=== PATIENT | female | born 1945 | race Caucasian/White ===

== ENCOUNTER 2016-07-04 10:46 | Emergency (ER) | payer MEDICARE, BC ==
--- NOTE | 2016-07-04 13:16 | EDDOCDS ---
Nurse's Notes [facility] Name: Riddhi Shabazz Age: 71 yrs Sex: Female : 1945 Arrival Date: 07/04/2016 Time: 10:46 Bed TR7 Private MD: CHRISTIANO BUSH Diagnosis: Vaginitis, vulvitis and vulvovaginitis in diseases classified elsewhere Presentation: 07/04 10:58 Presenting complaint: Patient states: she has vaginal burning after urinating - does kcs not burn when she urinates - no vaginal bleeding - does have some lower abdominal discomfort. Adult Sepsis Screening: The patient does not have new or worsening altered mentation. Patient's respiratory rate is less than 22. Systolic blood pressure is greater than 100. Patient has a qSOFA score of 0- Negative Sepsis Screen. Suicide/Homicide risk assessment- the patient denies having any suicidal and/or homicidal ideations and does not present with any other emotional, behavioral or mental health complaints. Status: Patient is not a resident services supervisor or dependent. Transition of care: patient was not received from another setting of care. 10:58 Acuity: ROBERT Level 4 kcs 10:58 Method Of Arrival: Walkin/Carried/Asstd kcs Triage Assessment: 11:02 General: Appears comfortable, well developed, well nourished, well groomed, Behavior is kcs cooperative, pleasant. Pain: Location: vaginal area Pain currently is 6 out of 10 on a pain scale. Neurological: Level of Consciousness is awake, alert. Respiratory: Airway is patent Respiratory effort is even, unlabored, Respiratory pattern is regular, symmetrical. Derm: Skin is intact, is healthy with good turgor, Skin is dry, Skin is normal. Historical: - Allergies: Codeine Sulfatedizzy, nausea; - Home Meds: 1. estradiolo cream three times a day 2. Xanax 0.25 mg Oral tab 1 tab 3 times per day 3. metoprolol succinate 100 mg Tb24 once daily ER 4. lexipro 5 mg daily - PMHx: Hypertension; Anxiety; - PSHx: Tubal ligation; - Social history: Smoking status: Patient states was never smoker of tobacco. No barriers to communication noted, The patient speaks fluent [place]. - : The pt / caregiver states he / she is not on anticoagulants. Home medication list is obtained from the patient. - Exposure Risk Screening:: None identified. Vital Signs: 10:48 BP 172 / 90; Pulse 80; Resp 16; Temp 98.7(O); Pulse Ox 100% ; Weight 76.2 kg; Height 5 cmb ft. 6 in. (167.64 cm); Pain 8/10; 10:48 Body Mass Index 27.12 (76.20 kg, 167.64 cm) cmb Vitals: 10:48 Log In Time: July 04, 2016 at 10:20. cmb ED Course: 10:47 Patient visited by Eladia Zarate. cmb 10:47 Patient moved to Waiting cmb 10:48 CHRISTIANO CLIFFORD is Private Physician. cmb 10:48 CHRISTIANO BUSH is Private Physician. cmb 10:49 Patient moved to Pre RCE cmb 10:59 Triage Initiated kcs 11:52 Patient moved to Triage 1 rs3 12:08 Patient visited by No Berger RN. mk4 12:08 Urinalysis Sent. jrd 12:08 Urine Culture Sent. jrd 12:13 Monae London PA-C is PHCP. dt4 12:13 Laith Anderson MD is Attending Physician. dt4 12:13 Patient visited by Monae London PA-C. dt4 12:18 Patient moved to PD jrd 12:44 Patient visited by No Berger RN. mk4 13:01 [facility] Payment Agreement was scanned into [employer] and attached to record. jp5 13:16 Patient moved to TR7 jrd Order Results: Lab Order: Urinalysis; SPEC'M 07/04/16 12:04 Test: APPEARANCE, URINE; Value: CLEAR; Range: CLEAR; Status: F Test: COLOR, URINE; Value: YELLOW; Range: YELLOW; Status: F Test: PH,URINE; Value: 7.0; Range: 5.0-9.0; Units: UNITS; Status: F Test: SPECIFIC GRAVITY URINE AUTO; Value: 1.016; Range: 1.002-1.035; Status: F Test: PROTEIN, URINE AUTO; Value: NEGATIVE; Range: NEGATIVE; Units: mg/dL; Status: F Test: GLUCOSE, URINE (UA) AUTO; Value: NEGATIVE; Range: NEGATIVE; Units: mg/dL; Status: F Test: KETONE, URINE AUTO; Value: NEGATIVE; Range: NEGATIVE; Units: mg/dL; Status: F Test: UROBILINOGEN, URINE AUTO; Value: 0.2; Range: 0.0-2.0; Units: mg/dL; Status: F Test: BILIRUBIN, URINE AUTO; Value: NEGATIVE; Range: NEGATIVE; Status: F Test: NITRITE, URINE AUTO; Value: NEGATIVE; Range: NEGATIVE; Status: F Test: LEUKOCYTE ESTERASE, URINE AUTO; Value: NEGATIVE; Range: NEGATIVE; Status: F Test: BLOOD, URINE BLOOD; Value: NEGATIVE; Range: NEGATIVE; Status: F Test: WBC, URINE AUTO; Value: 0; Range: 0-3; Units: /HPF; Status: F Test: RBC, URINE AUTO; Value: 2; Range: 0-3; Units: /HPF; Status: F Test: BACTERIA, URINE AUTO; Value: NEGATIVE; Range: NEGATIVE; Status: F Test: SQUAMOUS EPITHELIAL CELL UR AU; Value: 0; Range: 0-6; Units: /HPF; Status: F Test: MUCUS, URINE; Value: SMALL; Range: NEGATIVE; Status: F Test: HYALINE CAST, URINE AUTO; Value: 0; Range: 0-1; Units: /LPF; Status: F Outcome: 12:53 Discharge ordered by Provider. dt4 13:16 Patient left the ED. mk4 Signatures: Kaila Domínguez, RN RN [facility] Wanda Holley RN RN rs3 Eladia Zarate Margaret, RN RN mk4 Monae London, PA-C PA-C dt4 Eddy Loera PCA ROOF SERVICE TECHNICIAN jrOrin Milligan 5 MTDD
--- NOTE | 2016-07-04 13:16 | EDDOCDS ---
Physician Documentation [facility] Name: Riddhi Shabazz Age: 71 yrs Sex: Female : 1945 Arrival Date: 07/04/2016 Time: 10:46 Bed TR7 Private MD: CHRISTIANO BUSH Disposition: 07/04/16 12:53 Discharged to Home/Self Care. Impression: Vaginitis, vulvitis and vulvovaginitis in diseases classified elsewhere. - Condition is Stable. - Discharge Instructions: Contact Dermatitis, [id number]. - Medication Reconciliation, Local Pharmacy Hours form. - Follow up: Emergency Department; When: As needed; Reason: Worsening of conditions. Follow up: Private Physician; When: 2 - 3 days; Reason: Wound/Symptom Recheck, Recheck today's complaints, Continuance of care. - Problem is new. - Symptoms are unchanged. - Notes: YOUR URINE TODAY DID NOT SHOW ANY SIGNS OF INFECTION. YOU MAY HAVE A MILD IRRITATION/REACTION TO THE CHANGE IN WIPES. CALL YOUR PRIMARY CARE OR OB-SOIL TECHNOLOGIST PROVIDER TO SCHEDULE A FOLLOW UP APPOINTMENT. Historical: - Allergies: Codeine Sulfatedizzy, nausea; - Home Meds: 1. estradiolo cream three times a day 2. Xanax 0.25 mg Oral tab 1 tab 3 times per day 3. metoprolol succinate 100 mg Tb24 once daily ER 4. lexipro 5 mg daily - PMHx: Hypertension; Anxiety; - PSHx: Tubal ligation; - Social history: Smoking status: Patient states was never smoker of tobacco. No barriers to communication noted, The patient speaks fluent Moroccan. - : The pt / caregiver states he / she is not on anticoagulants. Home medication list is obtained from the patient. - Exposure Risk Screening:: None identified. Vital Signs: 07/04 10:48 BP 172 / 90; Pulse 80; Resp 16; Temp 98.7(O); Pulse Ox 100% ; Weight 76.2 kg / 167.99 cmb lbs; Height 5 ft. 6 in. (167.64 cm); Pain 8/10; 10:48 Body Mass Index 27.12 (76.20 kg, 167.64 cm) cmb MDM: 11:05 Urinalysis Ordered. EDMS 11:05 Urine Culture Ordered. EDMS 12:13 Undress patient appropriately for examination ordered. dt4 12:27 ED course: PT STATES RECENTLY CHANGED WIPES (FROM COTTONELLE TO EQUATE BRAND) WITHIN dt4 THE LAST WEEK AND NOTED SOME DISCOMFORT AFTER URINATING. STATES NO URINARY FREQUENCY, ABDOMINAL PAIN, BACK PAIN, FEVER, NAUSEA OR VOMITING. . 13:01 [facility] Payment Agreement was scanned into [employer] and attached to record. jp5 13:01 Financial registration complete. jp5 Signatures: Dispatcher [employer] EDKaila Walton RN RN [facility] No Berger RN RN mk4 Monae London, PAAnabelC PA-Jarad dt4 Orin Raya jp5 The chart was reviewed and I authenticate all verbal orders and agree with the evaluation and treatment provided.Attachments: 13:01 [facility] Payment Agreement jp5 MTDD
--- NOTE | 2016-07-06 14:17 | EDDOCDS ---
Physician Documentation [facility] Name: Riddhi Shabazz Age: 71 yrs Sex: Female : 1945 Arrival Date: 07/04/2016 Time: 10:46 Bed TR7 Private MD: CHRISTIANO BUSH Disposition: 07/04/16 12:53 Discharged to Home/Self Care. Impression: Vaginitis, vulvitis and vulvovaginitis in diseases classified elsewhere. - Condition is Stable. - Discharge Instructions: Contact Dermatitis, [id number]. - Medication Reconciliation, Local Pharmacy Hours form. - Follow up: Emergency Department; When: As needed; Reason: Worsening of conditions. Follow up: Private Physician; When: 2 - 3 days; Reason: Wound/Symptom Recheck, Recheck today's complaints, Continuance of care. - Problem is new. - Symptoms are unchanged. - Notes: YOUR URINE TODAY DID NOT SHOW ANY SIGNS OF INFECTION. YOU MAY HAVE A MILD IRRITATION/REACTION TO THE CHANGE IN WIPES. CALL YOUR PRIMARY CARE OR OB-LASTEX OPERATOR PROVIDER TO SCHEDULE A FOLLOW UP APPOINTMENT. Historical: - Allergies: Codeine Sulfatedizzy, nausea; - Home Meds: 1. estradiolo cream three times a day 2. Xanax 0.25 mg Oral tab 1 tab 3 times per day 3. metoprolol succinate 100 mg Tb24 once daily ER 4. lexipro 5 mg daily - PMHx: Hypertension; Anxiety; - PSHx: Tubal ligation; - Social history: Smoking status: Patient states was never smoker of tobacco. No barriers to communication noted, The patient speaks fluent Nauruan. - : The pt / caregiver states he / she is not on anticoagulants. Home medication list is obtained from the patient. - Exposure Risk Screening:: None identified. Vital Signs: 07/04 10:48 BP 172 / 90; Pulse 80; Resp 16; Temp 98.7(O); Pulse Ox 100% ; Weight 76.2 kg / 167.99 cmb lbs; Height 5 ft. 6 in. (167.64 cm); Pain 8/10; 10:48 Body Mass Index 27.12 (76.20 kg, 167.64 cm) cmb MDM: 11:05 Urinalysis Ordered. EDMS 11:05 Urine Culture Ordered. EDMS 12:13 Undress patient appropriately for examination ordered. dt4 12:27 ED course: PT STATES RECENTLY CHANGED WIPES (FROM COTTONELLE TO EQUATE BRAND) WITHIN dt4 THE LAST WEEK AND NOTED SOME DISCOMFORT AFTER URINATING. STATES NO URINARY FREQUENCY, ABDOMINAL PAIN, BACK PAIN, FEVER, NAUSEA OR VOMITING. . 13:01 [facility] Payment Agreement was scanned into [employer] and attached to record. jp5 13: Financial registration complete. jp5 07/05 12:42 T-Sheet-- Draft Copy was scanned into [employer] and attached to record. gb Signatures: Dispatcher [employer] EDMS Kaila Domínguez, RN RN kcs Beverly Gilliland, Reg Reg gb No Berger RN RN mk4 Monae London PA-C PAClay dt4 Orin Raya jp5 The chart was reviewed and I authenticate all verbal orders and agree with the evaluation and treatment provided.Attachments: 07/04 13:01 [facility] Payment Agreement jp5 07/05 12:42 T-Sheet-- Draft Copy gb Chart Complete MTDD
--- NOTE | 2016-07-06 14:17 | EDDOCDS ---
Nurse's Notes [facility] Name: Riddhi Shabazz Age: 71 yrs Sex: Female : 1945 Arrival Date: 07/04/2016 Time: 10:46 Bed TR7 Private MD: CHRISTIANO BUSH Diagnosis: Vaginitis, vulvitis and vulvovaginitis in diseases classified elsewhere Presentation: 07/04 10:58 Presenting complaint: Patient states: she has vaginal burning after urinating - does kcs not burn when she urinates - no vaginal bleeding - does have some lower abdominal discomfort. Adult Sepsis Screening: The patient does not have new or worsening altered mentation. Patient's respiratory rate is less than 22. Systolic blood pressure is greater than 100. Patient has a qSOFA score of 0- Negative Sepsis Screen. Suicide/Homicide risk assessment- the patient denies having any suicidal and/or homicidal ideations and does not present with any other emotional, behavioral or mental health complaints. Status: Patient is not a services executive or dependent. Transition of care: patient was not received from another setting of care. 10:58 Acuity: ROBERT Level 4 kcs 10:58 Method Of Arrival: Walkin/Carried/Asstd kcs Triage Assessment: 11:02 General: Appears comfortable, well developed, well nourished, well groomed, Behavior is kcs cooperative, pleasant. Pain: Location: vaginal area Pain currently is 6 out of 10 on a pain scale. Neurological: Level of Consciousness is awake, alert. Respiratory: Airway is patent Respiratory effort is even, unlabored, Respiratory pattern is regular, symmetrical. Derm: Skin is intact, is healthy with good turgor, Skin is dry, Skin is normal. Historical: - Allergies: Codeine Sulfatedizzy, nausea; - Home Meds: 1. estradiolo cream three times a day 2. Xanax 0.25 mg Oral tab 1 tab 3 times per day 3. metoprolol succinate 100 mg Tb24 once daily ER 4. lexipro 5 mg daily - PMHx: Hypertension; Anxiety; - PSHx: Tubal ligation; - Social history: Smoking status: Patient states was never smoker of tobacco. No barriers to communication noted, The patient speaks fluent Fijian. - : The pt / caregiver states he / she is not on anticoagulants. Home medication list is obtained from the patient. - Exposure Risk Screening:: None identified. Vital Signs: 10:48 BP 172 / 90; Pulse 80; Resp 16; Temp 98.7(O); Pulse Ox 100% ; Weight 76.2 kg; Height 5 cmb ft. 6 in. (167.64 cm); Pain 8/10; 10:48 Body Mass Index 27.12 (76.20 kg, 167.64 cm) cmb Vitals: 10:48 Log In Time: July 04, 2016 at 10:20. cmb ED Course: 10:47 Patient visited by Eladia Zarate. cmb 10:47 Patient moved to Waiting cmb 10:48 CHRISTIANO CLIFFORD is Private Physician. cmb 10:48 CHRISTIANO BUSH is Private Physician. cmb 10:49 Patient moved to Pre RCE cmb 10:59 Triage Initiated kcs 11:52 Patient moved to Triage 1 rs3 12:08 Patient visited by No Berger RN. mk4 12:08 Urinalysis Sent. jrd 12:08 Urine Culture Sent. jrd 12:13 Monae London PA-C is PHCP. dt4 12:13 Laith Anderson MD is Attending Physician. dt4 12:13 Patient visited by Monae London PA-C. dt4 12:18 Patient moved to PD jrd 12:44 Patient visited by No Berger RN. mk4 13:01 [facility] Payment Agreement was scanned into [employer] and attached to record. jp5 13:16 Patient moved to TR7 jrd 13:47 Patient name changed from Riddhi\S\\S\Walty\S\ to Riddhi\S\ \S\Walty. EDMS 07/05 12:42 T-Sheet-- Draft Copy was scanned into [employer] and attached to record. gb Order Results: Lab Order: Urinalysis; SPEC'M 07/04/16 12:04 Test: APPEARANCE, URINE; Value: CLEAR; Range: CLEAR; Status: F Test: COLOR, URINE; Value: YELLOW; Range: YELLOW; Status: F Test: PH,URINE; Value: 7.0; Range: 5.0-9.0; Units: UNITS; Status: F Test: SPECIFIC GRAVITY URINE AUTO; Value: 1.016; Range: 1.002-1.035; Status: F Test: PROTEIN, URINE AUTO; Value: NEGATIVE; Range: NEGATIVE; Units: mg/dL; Status: F Test: GLUCOSE, URINE (UA) AUTO; Value: NEGATIVE; Range: NEGATIVE; Units: mg/dL; Status: F Test: KETONE, URINE AUTO; Value: NEGATIVE; Range: NEGATIVE; Units: mg/dL; Status: F Test: UROBILINOGEN, URINE AUTO; Value: 0.2; Range: 0.0-2.0; Units: mg/dL; Status: F Test: BILIRUBIN, URINE AUTO; Value: NEGATIVE; Range: NEGATIVE; Status: F Test: NITRITE, URINE AUTO; Value: NEGATIVE; Range: NEGATIVE; Status: F Test: LEUKOCYTE ESTERASE, URINE AUTO; Value: NEGATIVE; Range: NEGATIVE; Status: F Test: BLOOD, URINE BLOOD; Value: NEGATIVE; Range: NEGATIVE; Status: F Test: WBC, URINE AUTO; Value: 0; Range: 0-3; Units: /HPF; Status: F Test: RBC, URINE AUTO; Value: 2; Range: 0-3; Units: /HPF; Status: F Test: BACTERIA, URINE AUTO; Value: NEGATIVE; Range: NEGATIVE; Status: F Test: SQUAMOUS EPITHELIAL CELL UR AU; Value: 0; Range: 0-6; Units: /HPF; Status: F Test: MUCUS, URINE; Value: SMALL; Range: NEGATIVE; Status: F Test: HYALINE CAST, URINE AUTO; Value: 0; Range: 0-1; Units: /LPF; Status: F Lab Order: Urine Culture; SPEC'M 07/04/16 12:04 Test: URINE CULTURE; Value: URINE CULTURE RESULT NO GROWTH; Status: F Outcome: 07/04 12:53 Discharge ordered by Provider. dt4 13:16 Patient left the ED. mk4 Signatures: Dispatcher [employer] EDMS Kaila Domínguez RN RN Beverly Oneill, Wanda Angel RN RN rs3 Eladia Zarate Margaret, RN RN mk4 Monae London, PA-C PA-C dt4 Eddy Loera PCA ELECTRIC ACCOUNTING MACHINE OPERATOR Orin Carrasco jp5 Chart Complete MTDD
--- NOTE | 2016-07-06 14:17 | EDDOCDS ---
Physician Documentation [facility] Name: Riddhi Shabazz Age: 71 yrs Sex: Female : 1945 Arrival Date: 07/04/2016 Time: 10:46 Bed TR7 Private MD: CHRISTIANO BUSH Disposition: 07/04/16 12:53 Discharged to Home/Self Care. Impression: Vaginitis, vulvitis and vulvovaginitis in diseases classified elsewhere. - Condition is Stable. - Discharge Instructions: Contact Dermatitis, [id number]. - Medication Reconciliation, Local Pharmacy Hours form. - Follow up: Emergency Department; When: As needed; Reason: Worsening of conditions. Follow up: Private Physician; When: 2 - 3 days; Reason: Wound/Symptom Recheck, Recheck today's complaints, Continuance of care. - Problem is new. - Symptoms are unchanged. - Notes: YOUR URINE TODAY DID NOT SHOW ANY SIGNS OF INFECTION. YOU MAY HAVE A MILD IRRITATION/REACTION TO THE CHANGE IN WIPES. CALL YOUR PRIMARY CARE OR OB-CARPENTER BRIDGE PROVIDER TO SCHEDULE A FOLLOW UP APPOINTMENT. Historical: - Allergies: Codeine Sulfatedizzy, nausea; - Home Meds: 1. estradiolo cream three times a day 2. Xanax 0.25 mg Oral tab 1 tab 3 times per day 3. metoprolol succinate 100 mg Tb24 once daily ER 4. lexipro 5 mg daily - PMHx: Hypertension; Anxiety; - PSHx: Tubal ligation; - Social history: Smoking status: Patient states was never smoker of tobacco. No barriers to communication noted, The patient speaks fluent Togolese. - : The pt / caregiver states he / she is not on anticoagulants. Home medication list is obtained from the patient. - Exposure Risk Screening:: None identified. Vital Signs: 07/04 10:48 BP 172 / 90; Pulse 80; Resp 16; Temp 98.7(O); Pulse Ox 100% ; Weight 76.2 kg / 167.99 cmb lbs; Height 5 ft. 6 in. (167.64 cm); Pain 8/10; 10:48 Body Mass Index 27.12 (76.20 kg, 167.64 cm) cmb MDM: 11:05 Urinalysis Ordered. EDMS 11:05 Urine Culture Ordered. EDMS 12:13 Undress patient appropriately for examination ordered. dt4 12:27 ED course: PT STATES RECENTLY CHANGED WIPES (FROM COTTONELLE TO EQUATE BRAND) WITHIN dt4 THE LAST WEEK AND NOTED SOME DISCOMFORT AFTER URINATING. STATES NO URINARY FREQUENCY, ABDOMINAL PAIN, BACK PAIN, FEVER, NAUSEA OR VOMITING. . 13:01 [facility] Payment Agreement was scanned into [employer] and attached to record. jp5 13: Financial registration complete. jp5 07/05 12:42 T-Sheet-- Draft Copy was scanned into [employer] and attached to record. gb Signatures: Dispatcher [employer] EDMS Kaila Domínguez, RN RN kcs Beverly Gilliland, Reg Reg gb No Berger RN RN mk4 Monae London PA-C PAClay dt4 Orin Raya jp5 The chart was reviewed and I authenticate all verbal orders and agree with the evaluation and treatment provided.Attachments: 07/04 13:01 [facility] Payment Agreement jp5 07/05 12:42 T-Sheet-- Draft Copy gb Chart Complete MTDD
== END 2016-07-04 13:16 | disposition home or self-care (01) ==
LOC: M ED 10:46
DX: N76.2 Acute vulvitis (principal); R30.0 Dysuria; I10 Essential (primary) hypertension; F41.9 Anxiety disorder, unspecified; Z88.5 Allergy status to narcotic agent; Z88.2 Allergy status to sulfonamides; Z79.899 Other long term (current) drug therapy

== ENCOUNTER → 2019-10-07 | Outpatient (REF) | payer MEDICARE, BC ==
[2019-10-07 18:32] LABS: AMORPHOUS SEDIMENT SMALL (NEGATIVE); APPEARANCE, URINE CLOUDY (CLEAR); BACTERIA, URINE AUTO 1+ (NEGATIVE); BILIRUBIN, URINE AUTO NEGATIVE (NEGATIVE); BLOOD, URINE BLOOD 3+ (NEGATIVE); COLOR, URINE YELLOW (YELLOW); GLUCOSE, URINE (UA) AUTO NEGATIVE (NEGATIVE); KETONE, URINE AUTO TRACE mg/dL (NEGATIVE); LEUKOCYTE ESTERASE, URINE AUTO 2+ (NEGATIVE); NITRITE, URINE AUTO NEGATIVE (NEGATIVE); PROTEIN, URINE AUTO 1+ mg/dL (NEGATIVE); RBC, URINE AUTO TNTC /HPF (0-3); SPECIFIC GRAVITY URINE AUTO 1.023 (1.002-1.035); SQUAMOUS EPITHELIAL CELL UR AU 0 /HPF (0-6); UROBILINOGEN, URINE AUTO 0.2 mg/dL (0.0-2.0); WBC, URINE AUTO 103 /HPF (0-3)
== END ==
LOC: M LAB REF 18:07
PROVIDERS: ATTEND Physician Assistant
DX: N39.0 Urinary tract infection, site not specified (principal); R31.9 Hematuria, unspecified

== ENCOUNTER → 2019-10-30 | Outpatient (REF) | payer MEDICARE, BC | LOC: M LAB REF 19:51 | PROVIDERS: ATTEND Physician Assistant | DX: R30.0 Dysuria (principal) ==

== ENCOUNTER → 2020-11-15 | Outpatient (REF) | payer MEDICARE, BC | LOC: M SFHCWAGY 12:35 | PROVIDERS: ATTEND Specialist | DX: Z01.419 Encounter for gynecological examination (general) (routine) without abnormal findings (principal); N95.8 Other specified menopausal and perimenopausal disorders | CPT/HCPCS: 87624; G0101; G0123 ==

== ENCOUNTER → 2020-12-08 | Outpatient (CLI) | payer MEDICARE, BC ==
--- NOTE | 2020-12-08 13:15 | REP ---
INDICATION: N83.202 LT OVARIAN CYST. COMPARISON: 07/03/2018. 08/13/2016. TECHNIQUE: Transabdominal and transvaginal scanning performed. FINDINGS: Uterine dimensions are 6.1 x 3.3 x 3.9 cm. Endometrial echo is 3 mm in AP dimension. Echogenic mass in the body of the uterus measures approximately 2.6 x 2.1 x 1.9 cm appearing unchanged compared to prior studies and most likely representing a fibroid. The bladder measures 5.8 x 4.7 x 7.4cm. The right ovary has dimensions of 4.2 x 3.8 x 4.0 cm. It's Doppler flow is normal with a resistive index of 0.67. The left ovary dimensions are 2.1 x 1.9 x 2.1 cm. It's Doppler flow was normal with resistive index of 0.64. Both ovaries are replaced by multiple small cystic structures. The appearance is essentially unchanged compared to the prior exam of 07/03/2018. The right ovary has increased since 08/13/2016. No free fluid is seen in the cul-de-sac. IMPRESSION: Stable echogenic mass in the body of the uterus most likely represents a fibroid. Multiple small cystic structures throughout both ovaries as discussed above, the appearance is unchanged since 07/03/2018. <Electronically signed by Stanislav Wisdom > 12/08/20 [id number]
== END ==
LOC: M WHC 09:46
PROVIDERS: ATTEND Specialist
DX: N83.202 Unspecified ovarian cyst, left side (principal); N85.8 Other specified noninflammatory disorders of uterus

== ENCOUNTER → 2020-12-18 | Outpatient (REF) | payer MEDICARE, BC ==
[2020-12-18 14:03] LABS: ALBUMIN 3.8 GM/DL (3.2-5.2); BLOOD UREA NITROGEN 18 MG/DL (7-18); CARBON DIOXIDE LEVEL 29 MEQ/L (21-32); CHLORIDE LEVEL 106 MEQ/L (98-107); CREATININE FOR GFR 0.81 MG/DL (0.55-1.30); GLOMERULAR FILTRATION RATE > 60.0 (>39); GLUCOSE, FASTING 92 MG/DL (70-100); NT-PRO BNP 403 PG/ML (<125); PHOSPHORUS LEVEL 3.3 MG/DL (2.5-4.9); POTASSIUM SERUM 4.7 MEQ/L (3.5-5.1); SODIUM LEVEL 139 MEQ/L (136-145)
== END ==
LOC: M LABDRWAD 12:31
PROVIDERS: ATTEND Internal Medicine Cardiovascular Disease
DX: I11.9 Hypertensive heart disease without heart failure (principal); R53.83 Other fatigue; I27.20 Pulmonary hypertension, unspecified

== ENCOUNTER → 2021-01-02 | Outpatient (CLI) | payer MEDICARE, BC ==
--- NOTE | 2021-01-04 15:09 | SLEEPHOME ---
DATE: 01/02/2021 ORDERED BY: Dr. Barnes Diagnostic home sleep testing was performed due to concern for the obstructive sleep apnea syndrome in this patient with a history of pulmonary hypertension. For testing, a nocturnal T3 respiratory monitoring device was used. Continuous record was made of pulse, oxygen saturation, air flow, chest and abdominal strain, and body position. There was 7 hours and 59 minutes of data reviewed. There was 7 hours and 26 minutes marked as time in bed. During the interval marked time in bed, there were 262 respiratory events identified of 10 seconds in duration or greater for a respiratory event index of 33.7. The events were primarily obstructive; however, 82 central apneas were scored. Patient's baseline pulse rate was 56 beats per minute. Pulse rate ranged 49-84. Baseline saturation was 92%. Saturations fell to 82%, and testing was performed in both the supine and nonsupine positions. IMPRESSION: Abnormal home sleep testing with repetitive respiratory events and oxygen desaturations to 82% with a respiratory event index of 33.7 is consistent with the obstructive sleep apnea syndrome. RECOMMENDATION: The patient should be encouraged to undergo formal sleep evaluation.
== END ==
LOC: M SLEEP HO 09:58
PROVIDERS: ATTEND Internal Medicine Cardiovascular Disease
DX: I27.20 Pulmonary hypertension, unspecified (principal)

== ENCOUNTER → 2021-03-02 | Outpatient (CLI) | payer MEDICARE, BC ==
--- NOTE | 2021-03-02 14:33 | REPMRS ---
Patient History The patient states she has not had a clinical breast exam in over a year. Family history of breast cancer at age 55 in sister. Patient states no breast complaints today. Patient has signed MRS History Sheet. Digital Woman Screen Mammo: March 02, 2021 - Exam #: [id number] Bilateral CC and MLO view(s) were taken. Technologist: Kelle Kaplan, Technologist Prior study comparison: April 16, 2016, digital woman screen mammo performed at [facility]. April 03, 2015, digital woman screen mammo performed at [facility]. FINDINGS: There are scattered fibroglandular densities. Screening. Digital screening (2D) mammography was performed bilaterally in the CC and MLO projections. Additionally, breast tomosynthesis (3D mammography) was performed bilaterally in the CC and MLO projections. Todays exam was compared to the prior exam/exams.There are no prior DBT images for comparison. By history, the patient has no complaints of a palpable breast abnormality or other significant breast complaints. The breasts are unchanged in size and shape. There are no yoan-soft tissue densities or spiculated masses. There is no internal architectural distortion. There are no suspicious yoan-calcific clusters. Skin thickening or nipple retraction is not present. IMPRESSION: BI-RADS Category 2- Benign Findings. There is no evidence of malignant alteration of the breasts. Followup examination recommended in one year. The Volpara volumetric breast density category is B, there are scattered areas of fibroglandular densities. This mammogram was read with the assistance of [facility],an FDA approved computer aided detection system for mammography. The lifetime Tyrer-Cuzick score is 9.8 % Negative x-ray reports should not delay surgical consultation if a dominant or clinically suspicious mass is present. Not all breast cancers can be identified by mammography. Therefore, we recommend that you continue to perform regular breast self-examination and physical examination and then promptly contact your physician of any concerns or changes. Adenosis and dense breasts may obscure an underlying neoplasm. Assessment: BI-RADS/ACR category 2 mammogram. Benign Findings. Recommendation Routine screening mammogram of both breasts in 1 year. Electronically Signed By: Jett Ding DO 03/02/21 1215
--- NOTE | 2021-03-02 15:48 | DEXAMM ---
INDICATION: MENOPAUSAL PROBLEM. COMPARISON: Comparison study April 23, 2018. TECHNIQUE: Bone density was measured using dual-energy x-ray absorptionmetry (DEXA). FINDINGS: AP SPINE L1-L4 BMD 1.281 g/cm2 Young Adult T-Score 0.7 Age Matched Z-Score 2.4. LT FEMUR, TOTAL BMD 0.887 g/cm2 Young Adult T-Score -1.0 Age Matched Z-Score 0.8. LT NECK BMD 0.700 g/cm2 Young Adult T-Score -2.4 Age Matched Z-Score -0.5. RT FEMUR, TOTAL BMD 0.900 g/cm2 Young Adult T-Score -0.9 Age Matched Z-Score 0.9. RT NECK BMD 0.788 g/cm2 Young Adult T-Score -1.8 Age Matched Z-Score 0.1. IMPRESSION: There is normal bone density of the spine. There is low bone density of the left hip. There is low bone density of the right hip. The density of the spine has decreased 1.7% since the initial exam on December 13, 2010. The density of the spine increased 3.5% since most recent exam on April 23, 2018. The density of the left hip has decreased 4.7% since initial exam on December 13, 2010. The density of the left hip has decreased 2.6% since most recent exam on April 16, 2016. The density of the right hip has decreased 1.6% since the initial exam on December 13, 2010. The density of the right hip has decreased 3.2% since the most recent exam on April 16, 2016. FOLLOW-UP: Recommendation for the next bone density exam: 2 years. <Electronically signed by Kyrie Elizabeth > 03/02/21 [id number]
== END ==
LOC: M WHC 13:25
PROVIDERS: ATTEND Specialist
DX: Z12.31 Encounter for screening mammogram for malignant neoplasm of breast (principal); N95.9 Unspecified menopausal and perimenopausal disorder

== ENCOUNTER → 2021-03-19 | Outpatient (REF) | payer MEDICARE, BC ==
[~2021-03-19] MED LIST: CEPH500C; NITR100C2
[2021-03-19 13:41] LABS: APPEARANCE, URINE CLOUDY (CLEAR); BACTERIA, URINE AUTO NEGATIVE (NEGATIVE); BILIRUBIN, URINE AUTO NEGATIVE (NEGATIVE); BLOOD, URINE BLOOD 3+ (NEGATIVE); COLOR, URINE YELLOW (YELLOW); GLUCOSE, URINE (UA) AUTO 1+ mg/dL (NEGATIVE); KETONE, URINE AUTO TRACE mg/dL (NEGATIVE); LEUKOCYTE ESTERASE, URINE AUTO 1+ (NEGATIVE); NITRITE, URINE AUTO NEGATIVE (NEGATIVE); PROTEIN, URINE AUTO 3+ mg/dL (NEGATIVE); RBC, URINE AUTO TNTC /HPF (0-3); SPECIFIC GRAVITY URINE AUTO 1.015 (1.002-1.035); SQUAMOUS EPITHELIAL CELL UR AU 0 /HPF (0-6); UROBILINOGEN, URINE AUTO 0.2 mg/dL (0.0-2.0); WBC, URINE AUTO 102 /HPF (0-3)
== END ==
LOC: M SFHCWAGY 13:11
PROVIDERS: ATTEND Advanced Practice Midwife
DX: R30.0 Dysuria (principal)

== ENCOUNTER 2021-04-09 13:30 | Emergency (ER) | payer MEDICARE, BC ==
[~2021-04-09] VITALS: Ht 167.6 cm; Wt 75.6 kg
--- OUTSIDE RECORDS SUMMARY | 2021-04-09 13:39 | CCD ---
Author Author [facility] Organization [facility] Address Unknown Phone Unavailable Care Team Providers Care Legal Coordinator Name Role Phone Aleyda Arteaga Unavailable PROBLEMS Type Condition ICD9-CM Code [id number] Code Onset Dates Condition S tatus W/U Status Risk SNOMED Code Notes Problem Female dyspareunia N94.10 Active confirmed 8 8724465 Problem Menopausal and postmenopausal disorder N95.9 A ctive confirmed 141927170 Problem Menopausal problem N95.9 Active confirmed 6 0343387 Problem Symptomatic menopausal or female climacteric states N95.1 Active confirmed 97509505 Problem Postmenopausal atrophic vaginitis N95.2 Active con firmed [id number] ALLERGIES Allergen (clinical drug ingredient) Drug/Non Drug Allergy do cumented on EMR Reaction Allergy Type Onset Date Status codeine Codeine Sulfate([facility] Code:[address]-13) dizzines s, upset stomach Drug Allergy Active ENCOUNTERS from 1945 to 2021-03-21 Encounter Location Date Provider Diagnosis [facility] [address] [place] [address] [place] [address] Feb, Aleyda Arteaga Urinary tract infect ion, site not specified N39.0 and Bacterial infection, unspecified A49.9 IMMUNIZATIONS No Information SOCIAL HISTORY Tobacco Use: Social History Observation Description Date Details (start date - stop date) Never Smoker Sex Assigned At : Social History Observation Description Sex Assigned At Unknown Alcohol Screening: Question Answer Notes Did you have a drink containing alcohol in the past year? Ye s Points 4 Interpretation Positive How often did you have six or more drinks on one occas ion in the past year? Never (0 points) How many drinks did you have on a typica l day when you were drinking in the past year? 1 or 2 (0 points) How often did you have a drink containing alcohol in t he past year? Four or more times a week (4 points) BMI Care Goal Follow-Up Question Answer Notes Above Normal BMI Follow-Up Giving encouragement to exercise Tobacco Use: Question Answer Notes Are you a: never smoker never smoker REASON FOR REFERRAL No Information VITAL SIGNS No information MEDICATIONS Medication SIG (Take, Route, Frequency, Duration) Notes Start Da te End Date Status Diflucan 150 MG 1 tablet Orally one time Feb, Active Macrobid 100 MG 1 capsule Orally twice per day for 5 days Feb, Active Macrobid 100 MG 1 capsule Orally twice per day for 5 days Feb, Active PROCEDURES No Information RESULTS No Results REASON FOR VISIT Re:RE:UTI MEDICAL (GENERAL) HISTORY Type Description Date Medical History depression Medical History anxiety Medical History high blood pressure Medical History postmenopause Surgical History tubal ligation Surgical History D&C Surgical History 2001 Surgical History colonoscopy Hospitalization History none Goals Section No Information Health Concerns No Information MEDICAL EQUIPMENT No Information MENTAL STATUS No Information FUNCTIONAL STATUS No Information ASSESSMENTS Encounter Date Diagnosis Assessment Notes Treatment Notes Treatm ent Clinical Notes Feb, Urinary tract infection, site not specified (ICD -10 - N39.0) Feb, Bacterial infection, unspecified (ICD-10 - A49.9 ) PLAN OF TREATMENT Medication Medication Name Sig Start Date Stop Date Diflucan 150 MG 1 tablet Orally one time Feb, Macrobid 100 MG 1 capsule Orally twice per day for 5 days Feb Macrobid 100 MG 1 capsule Orally twice per day for 5 days Feb Insurance Providers Payer Name Payer Address Payer Phone Insured Name Patient Relati onship to Insured Coverage Start Date Coverage End Date BS [place] [employer] [address] [facility] [address] Hipolito Hernandez MEDICARE Part A and B [address] [facility] [address] ZOLTAN HERNANDEZ self
--- OUTSIDE RECORDS SUMMARY | 2021-04-09 13:39 | CCD ---
Author Author [facility] Organization [facility] Address Unknown Phone Unavailable Care Team Providers Care Ethylbenzene Converter Operator Name Role Phone Yasmani Elvin Unavailable PROBLEMS Type Condition ICD9-CM Code YVX45-CW Code Onset Dates Condition S tatus W/U Status Risk SNOMED Code Notes Problem Female dyspareunia N94.10 Active confirmed 8 0772397 Problem Menopausal and postmenopausal disorder N95.9 A ctive confirmed 207394704 Problem Menopausal problem N95.9 Active confirmed 6 2044447 Problem Symptomatic menopausal or female climacteric states N95.1 Active confirmed 31547392 Problem Postmenopausal atrophic vaginitis N95.2 Active con firmed 99925570 ALLERGIES Allergen (clinical drug ingredient) Drug/Non Drug Allergy do cumented on EMR Reaction Allergy Type Onset Date Status codeine Codeine Sulfate([facility] Code:[address]-76) dizzines s, upset stomach Drug Allergy Active ENCOUNTERS from 1945 to 2021-03-26 Encounter Location Date Provider Diagnosis [facility] [address] [place] [address] [place] [address] Mar, Elvin Gruber IMMUNIZATIONS No Information SOCIAL HISTORY Tobacco Use: [...] Notes Start Da te End Date Status Cephalexin 500 MG 1 capsule Orally Four times a day for 5 day(s) Mar, Active Diflucan 150 MG 1 tablet Orally one time Feb, Active Macrobid 100 MG 1 capsule Orally twice per day for 5 days Feb, Active Macrobid 100 MG 1 capsule Orally twice per day for 5 days Feb, Active PROCEDURES No Information RESULTS No Results REASON FOR VISIT Bone Density results MEDICAL (GENERAL) HISTORY Type Description Date Medical History depression Medical History anxiety Medical History high blood pressure Medical History postmenopause Surgical History tubal ligation Surgical History D&C Surgical History EMB 2001 Surgical History colonoscopy Hospitalization History none Goals Section No Information Health Concerns No Information MEDICAL EQUIPMENT No Information MENTAL STATUS No Information FUNCTIONAL STATUS No Information ASSESSMENTS No Information PLAN OF TREATMENT Medication Medication Name Sig Start Date Stop Date Cephalexin 500 MG 1 capsule Orally Four times a day for 5 day(s) Mar, Macrobid 100 MG 1 capsule Orally twice per day for 5 days Feb Macrobid 100 MG 1 capsule Orally twice per day for 5 days Feb Diflucan 150 MG 1 tablet Orally one time Feb, Insurance Providers Payer Name Payer Address Payer Phone Insured Name Patient Relati onship to Insured Coverage Start Date Coverage End Date MEDICARE Part A and B [address] [facility] [address] ZOLTAN SHABAZZ [place] [address] [address] [place] [address] [phone] Yasir Shabazz
--- OUTSIDE RECORDS SUMMARY | 2021-04-09 13:39 | CCD ---
Author Author [facility] Organization [facility] Address Unknown Phone Unavailable Care Team Providers Care Scrap Sorter Name Role Phone Yasmani Elvin Unavailable PROBLEMS Type Condition ICD9-CM Code BRO65-VC Code Onset Dates Condition S tatus W/U Status Risk SNOMED Code Notes Problem Female dyspareunia N94.10 Active confirmed 8 9219553 Problem Menopausal and postmenopausal disorder N95.9 A ctive confirmed 289500257 Problem Menopausal problem N95.9 Active confirmed 6 5320878 Problem Symptomatic menopausal or female climacteric states N95.1 Active confirmed 04230466 Problem Postmenopausal atrophic vaginitis N95.2 Active con firmed 57661299 ALLERGIES Allergen (clinical drug ingredient) Drug/Non Drug Allergy do cumented on EMR Reaction Allergy Type Onset Date Status codeine Codeine Sulfate([facility] Code:[address]-08) dizzines s, upset stomach Drug Allergy Active ENCOUNTERS from 1945 to 2021-03-29 Encounter Location Date Provider Diagnosis [facility] [address] [place] [address] [place] [address] Mar, Elvin Gruber IMMUNIZATIONS No Information SOCIAL [...] a day for 5 day(s) Mar, Active Macrobid 100 MG 1 capsule Orally twice per day for 5 days Feb, Active Macrobid 100 MG 1 capsule Orally twice a day for 7 day(s) Mar, Active Diflucan 100 MG 1 tablet Orally once for 1 day(s) Mar, Active Macrobid 100 MG 1 capsule Orally twice per day for 5 days Feb, Active Diflucan 150 MG 1 tablet Orally one time Feb, Active PROCEDURES No Information RESULTS No Results REASON FOR VISIT New Refill Request MEDICAL (GENERAL) HISTORY Type Description Date Medical [...] MG 1 tablet Orally one time Feb, Diflucan 100 MG 1 tablet Orally once for 1 day(s) Mar, Macrobid 100 MG 1 capsule Orally twice per day for 5 days Feb Macrobid 100 MG 1 capsule Orally twice a day for 7 day(s) Mar Next Appt Details Provider Name:Laura Rangel, 2021-04-1 0 09:00:00 AM, [address], , [place], [address], Insurance Providers Payer Name Payer Address Payer Phone Insured Name Patient Relati onship to Insured Coverage Start Date Coverage End Date MEDICARE Part A and B [address] [facility] [address] [phone] [facility] [place] [address] [address] [place] [address] Yasir Shabazz
--- OUTSIDE RECORDS SUMMARY | 2021-04-09 13:39 | CCD ---
Author Author [facility] Organization [facility] Address Unknown Phone Unavailable Care Team Providers Care Supervisor [place] Name Role Phone Aleyda Arteaga Unavailable PROBLEMS Type Condition ICD9-CM Code UYC61-HE Code Onset Dates Condition S tatus W/U Status Risk SNOMED Code Notes Problem Female dyspareunia N94.10 Active confirmed 8 2601777 Problem Menopausal and postmenopausal disorder N95.9 A ctive confirmed 587830156 Problem Menopausal problem N95.9 Active confirmed 6 3590970 Problem Symptomatic menopausal or female climacteric states N95.1 Active confirmed 67038725 Problem Postmenopausal atrophic vaginitis N95.2 Active con firmed 97662913 ALLERGIES Allergen (clinical drug ingredient) Drug/Non Drug Allergy do cumented on EMR Reaction Allergy Type Onset Date Status codeine Codeine Sulfate([facility] Code:[address]-93) dizzines s, upset stomach Drug Allergy Active ENCOUNTERS from 1945 to 2021-03-20 Encounter Location Date Provider Diagnosis [facility] [address] [place] [address] [place] [address] Feb, Aleyda Chandler IMMUNIZATIONS No Information SOCIAL HISTORY Tobacco Use: [...] Notes Start Da te End Date Status Macrobid 100 MG 1 capsule Orally twice per day for 5 days Feb, Active Diflucan 150 MG 1 tablet Orally one time Feb, Active PROCEDURES No Information RESULTS No Results REASON FOR VISIT Urine analysis to Primary doctor MEDICAL (GENERAL) HISTORY Type Description Date Medical [...] Medication Name Sig Start Date Stop Date Macrobid 100 MG 1 capsule Orally twice per day for 5 days Feb Diflucan 150 MG 1 tablet Orally one time Feb, Insurance Providers Payer Name Payer Address Payer Phone Insured Name Patient Relati onship to Insured Coverage Start Date Coverage End Date MEDICARE Part A and B [address] [facility] [address] ZOLTAN HERNANDEZ BS [place] [facility] [address] [place] [address] [phone] Yasir Hernandze
--- OUTSIDE RECORDS SUMMARY | 2021-04-09 13:39 | CCD ---
Author Author [facility] Organization [facility] Address Unknown Phone Unavailable Care Team Providers Care Donations Attendant Name Role Phone Yasmani Elvin Unavailable PROBLEMS Type Condition ICD9-CM Code KEP04-UB Code Onset Dates Condition S tatus W/U Status Risk SNOMED Code Notes Problem Female dyspareunia N94.10 Active confirmed 8 9729690 Problem Menopausal and postmenopausal disorder N95.9 A ctive confirmed 141046156 Problem Menopausal problem N95.9 Active confirmed 6 0872884 Problem Symptomatic menopausal or female climacteric states N95.1 Active confirmed 43342720 Problem Postmenopausal atrophic vaginitis N95.2 Active con firmed 47541108 ALLERGIES Allergen (clinical drug ingredient) Drug/Non Drug Allergy do cumented on EMR Reaction Allergy Type Onset Date Status codeine Codeine Sulfate([facility] Code:[address]-96) dizzines s, upset stomach Drug Allergy Active ENCOUNTERS from 1945 to 2021-03-27 Encounter Location Date Provider Diagnosis [facility] [address] [place] [address] [place] [address] Mar, Elvin Gruber IMMUNIZATIONS No Information SOCIAL [...] a day for 7 day(s) Mar, Active PROCEDURES No Information RESULTS No Results REASON FOR VISIT UTI MEDICAL (GENERAL) HISTORY Type Description Date Medical [...] twice a day for 7 day(s) Mar Diflucan 150 MG 1 tablet Orally one time Feb, Macrobid 100 MG 1 capsule Orally twice per day for 5 days Feb Insurance Providers Payer Name Payer Address Payer Phone Insured Name Patient Relati onship to Insured Coverage Start Date Coverage End Date BS [place] [facility] [address] [facility] [place] [address] Yasir Shabazz MEDICARE Part A and B [address] [facility] [address] [phone] ZOLTAN SHABAZZ self
--- OUTSIDE RECORDS SUMMARY | 2021-04-09 13:39 | CCD ---
Author Author [facility] Organization [facility] Address Unknown Phone Unavailable Care Team Providers Care Fuel Assembler Name Role Phone Chandler Aleyda Unavailable PROBLEMS Type Condition ICD9-CM Code ILH17-EM Code Onset Dates Condition S tatus W/U Status Risk SNOMED Code Notes Problem Female dyspareunia N94.10 Active confirmed 8 2753394 Problem Menopausal and postmenopausal disorder N95.9 A ctive confirmed 650668392 Problem Menopausal problem N95.9 Active confirmed 6 6314878 Problem Symptomatic menopausal or female climacteric states N95.1 Active confirmed 23248273 Problem Postmenopausal atrophic vaginitis N95.2 Active con firmed 89515361 ALLERGIES Allergen (clinical drug ingredient) Drug/Non Drug Allergy do cumented on EMR Reaction Allergy Type Onset Date Status codeine Codeine Sulfate([facility] Code:[address]-52) dizzines s, upset stomach Drug Allergy Active ENCOUNTERS from 1945 to 2021-03-28 Encounter Location Date Provider Diagnosis [facility] [address] [place] [address] [place] [address] Mar, Aleyda Arteaga IMMUNIZATIONS No Information SOCIAL HISTORY Tobacco Use: [...] Information RESULTS No Results REASON FOR VISIT Referral for Urologist MEDICAL (GENERAL) HISTORY Type Description Date Medical [...] Part A and B [address] [facility] [address] [phone] ZOLTAN HERNANDEZ [place] [address] [address] [facility] [address] Yasir Hernandez
--- OUTSIDE RECORDS SUMMARY | 2021-04-09 13:39 | CCD | Continuity of Care Document ---
Author Author [facility] Organization Unknown Address [address] [place] [address] [place] [address] Phone [phone] Care Team Providers Care Gluing Machine Operator Automatic Name Role Phone Lukasz Ayers MD AUTM [phone] [facility] [phone] Elvin Gruber MD AUTM [phone] Problems Description No Information Available Social History Type Date Description Comments Sex Unknown ETOH Use Occasionally consumes alcohol Tobacco Use Start: Unknown Patient has never smoked Tobacco Use Start: Unknown The Patient Has Never Vaped Smoking Status Reviewed: 03/01/21 The Patient Has Never Vaped Allergies, Adverse Reactions, Alerts Active Allergies Criticality Reaction | Severity Comments Date Aisha Unable to assess criticality Nausea 10/07/2019 Medications Active Medications SIG Qnty Indications Ordering Provide r Date Irbesartan 150mg Tablets Once a day Unknown Metoprolol Succinate ER 100mg Tablets ER 24HR 1 by mouth every day Unknown 000 Xanax 0.25mg Tablets tid Unknown Escitalopram Oxalate 10mg Unknown Spironolactone 12.5mg Unknown Chlorthalidone 12.5mg (M,W,F) Unknown Ernesto Advanced Aspirin Extra Strength Unknown Coricidin D Cold/Flu/Sinus last dose 9pm last night Unknown Immunizations Description No Information Available Vital Signs Date Vital Result Comment 03/01/2021 4:04pm BP Systolic 160 mmHg BP Diastolic 84 mmHg Heart Rate 71 /min Respiratory Rate 18 /min O2 % BldC Oximetry 98 % Body Temperature 97.1 F Weight 162.00 lb Height 66 inches 5'6" BMI (Body Mass Index) 26.1 kg/m2 Pain Level 5 10/30/2019 10:31am BP Systolic 130 mmHg BP Diastolic 77 mmHg Heart Rate 66 /min Respiratory Rate 67 /min O2 % BldC Oximetry 96 % Body Temperature 97.8 F Weight 159.00 lb Height 66 inches 5'6" BMI (Body Mass Index) 25.7 kg/m2 Pain Level 5 Results Description No Information Available Procedures Date Code Description Status 03/01/2021 47201 Office/Outpatient Established Mo d MDM 30-39 Min Completed Medical Devices Description No Information Available Encounters Type Date Location Provider Dx Diagnosis Office Visit 03/01/2021 1:30p Main Office Jason Wright J0 1.90 Acute sinusitis, unspecified J06.9 Acute upper respiratory infe ction, unspecified Z20.828 Contact w and exposure to ot h viral communicable diseases Assessments Date Code Description Provider 03/01/2021 J01.90 Acute sinusitis, unspecified Jason Colbert 03/01/2021 J06.9 Acute upper respiratory infectio n, unspecified Raysa Wright.A. 03/01/2021 Z20.828 Contact with and (singh spected) exposure to other viral communicable diseases Jason Wright Plan of Treatment No Information Available Functional Status Description No Information Available Mental Status Description No Information Available Referrals Description No Information Available
--- OUTSIDE RECORDS SUMMARY | 2021-04-09 13:39 | CCD ---
Author Author [facility] Organization [facility] Address Unknown Phone Unavailable Care Team Providers Care Cosmetics Presser Name Role Phone Yasmani Elvin Unavailable PROBLEMS Type Condition ICD9-CM Code VUY74-KJ Code Onset Dates Condition S tatus W/U Status Risk SNOMED Code Notes Problem Female dyspareunia N94.10 Active confirmed 8 7585606 Problem Menopausal and postmenopausal disorder N95.9 A ctive confirmed 232570583 Problem Menopausal problem N95.9 Active confirmed 6 2452411 Problem Symptomatic menopausal or female climacteric states N95.1 Active confirmed 08308669 Problem Postmenopausal atrophic vaginitis N95.2 Active con firmed 27310622 ALLERGIES Allergen (clinical drug ingredient) Drug/Non Drug Allergy do cumented on EMR Reaction Allergy Type Onset Date Status codeine Codeine Sulfate([facility] Code:[address]-92) dizzines s, upset stomach Drug Allergy Active ENCOUNTERS from 1945 to 2021-04-01 Encounter Location Date Provider Diagnosis [facility] [address] [place] [address] [place] [address] Mar, Elvin Gruber IMMUNIZATIONS No Information SOCIAL [...] RESULTS No Results REASON FOR VISIT UTI Symptoms MEDICAL (GENERAL) HISTORY Type Description Date Medical [...] Mar Next Appt Details Provider Name:Laura Rangel, 2021-04- 0 09:00:00 AM, [address], , [place], [address], Insurance Providers Payer Name Payer Address Payer Phone Insured Name Patient Relati onship to Insured Coverage Start Date Coverage End Date BC BS [place] [facility] [address] [place] [address] Yasir Shabazz MEDICARE Part A and B [address] [facility] [address] [phone] ZOLTAN SHABAZZ self
--- OUTSIDE RECORDS SUMMARY | 2021-04-09 13:39 | CCD ---
Author Author [facility] Organization [facility] Address Unknown Phone Unavailable Care Team Providers Care Hub Inventory Specialist Name Role Phone Aleyda Arteaga Unavailable PROBLEMS Type Condition ICD9-CM Code JOO88-WE Code Onset Dates Condition S tatus W/U Status Risk SNOMED Code Notes Problem Female dyspareunia N94.10 Active confirmed 8 4830441 Problem Menopausal and postmenopausal disorder N95.9 A ctive confirmed 676667235 Problem Menopausal problem N95.9 Active confirmed 6 6742787 Problem Symptomatic menopausal or female climacteric states N95.1 Active confirmed 60258006 Problem Postmenopausal atrophic vaginitis N95.2 Active con firmed 39839602 ALLERGIES Allergen (clinical drug ingredient) Drug/Non Drug Allergy do cumented on EMR Reaction Allergy Type Onset Date Status codeine Codeine Sulfate([facility] Code:[address]-91) dizzines s, upset stomach Drug Allergy Active ENCOUNTERS from 1945 to 2021-03-22 Encounter Location Date Provider Diagnosis [facility] [address] [place] [address] [place] [address] Feb, Aleyda Rick IMMUNIZATIONS No Information SOCIAL HISTORY Tobacco Use: [...] Information RESULTS No Results REASON FOR VISIT RE:Re:RE:UTI MEDICAL (GENERAL) HISTORY Type Description Date Medical [...] Part A and B [address] [facility] [address] [phone] ZOLTAN HERNANDEZ BS [place] [address] [address] [place] [address] [phone] Yasir Hernandez
--- OUTSIDE RECORDS SUMMARY | 2021-04-09 13:39 | CCD ---
Author Author [facility] Organization [facility] Address Unknown Phone Unavailable Care Team Providers Care Spring Repairer Helper Hand Name Role Phone Aleyda Arteaga Unavailable PROBLEMS Type Condition ICD9-CM Code [id number] Code Onset Dates Condition S tatus W/U Status Risk SNOMED Code Notes Problem Female dyspareunia N94.10 Active confirmed 8 8243716 Problem Menopausal and postmenopausal disorder N95.9 A ctive confirmed 857752847 Problem Menopausal problem N95.9 Active confirmed 6 3690882 Problem Symptomatic menopausal or female climacteric states N95.1 Active confirmed 10342993 Problem Postmenopausal atrophic vaginitis N95.2 Active con firmed [id number] ALLERGIES Allergen (clinical drug ingredient) Drug/Non Drug Allergy do cumented on EMR Reaction Allergy Type Onset Date Status codeine Codeine Sulfate([facility] Code:[address]-23) dizzines s, upset stomach Drug Allergy Active ENCOUNTERS from 1945 to 2021-03-21 Encounter Location Date Provider Diagnosis [facility] [address] [place] [address] [place] [address] Feb, Aleyda Arteaga IMMUNIZATIONS No Information SOCIAL HISTORY [...] Part A and B [address] [facility] [address] [phone] ZOLTAN HERNANDEZ [facility] [place] [facility] [address] [place] [address] Yasir Hernandez
--- OUTSIDE RECORDS SUMMARY | 2021-04-09 13:39 | CCD | Continuity of Care Document ---
Author Author Riddhi URIAS Organization Unknown Address [address] [place] [address] [place] [address] Phone [phone] Care Team Providers Care Paralegal Name Role Phone Lukasz Ayers MD AUT[facility] [phone] [facility] Elvin Gruber MD [facility] [phone] Problems Description No Information Available Social History Type Date Description Comments Sex Unknown ETOH Use Occasionally consumes alcohol Tobacco Use Start: Unknown Patient has never smoked Tobacco Use Start: Unknown The Patient Has Never Vaped Smoking Status Reviewed: 03/01/21 The Patient Has Never Vaped Allergies, Adverse Reactions, Alerts Active Allergies Criticality Reaction | Severity Comments Date Codeine Unable to assess criticality Nausea 10/07/2019 Medications Active Medications SIG Qnty Indications Ordering Provide r Date Amoxicillin/Clavulanate Potassium 875-125mg Tablets 1 tab by mouth twice a day for 7 days 14tabs J01.90 Neftaly Valenzuela JR., M.D. 03/01/2021 Diflucan 150mg Tablets 1 tab by mouth, may repeat in 3-5 days if needed 2tabs J01.90 Neftaly Valenzuela JR., M.D. 03/01/2021 Benzonatate 100mg Capsules 1 capsule by mouth three times daily as needed for dry cough 20caps J06.9 Neftaly Valenzuela JR., M.D. 03/01/2021 Irbesartan 150mg Tablets Once a day Unknown Metoprolol Succinate ER 100mg Tablets ER 24HR 1 by mouth every day Unknown 0 000 Xanax 0.25mg Tablets tid Unknown Escitalopram [...] Available Procedures Date Code Description Status 03/01/2021 05044 Office/Outpatient Established Mo d MDM 30-39 Min Completed Medical Devices Description No Information Available Encounters Type Date Location Provider Dx Diagnosis Office Visit 03/01/2021 1:30p Main Office Asim Urias, Jason J0 1.90 Acute sinusitis, unspecified J06.9 Acute upper respiratory infe ction, unspecified Z20.828 Contact w and exposure to ot h viral communicable diseases Assessments Date Code Description Provider 03/01/2021 J01.90 Acute sinusitis, unspecified Jason Colbert 03/01/2021 J06.9 Acute upper respiratory infectio n, unspecified Willam Wright. 03/01/2021 Z20.828 Contact with and (singh spected) exposure to other viral communicable diseases Jason Wright Plan of Treatment No Information Available Functional Status Description No Information Available Mental Status Description No Information Available Referrals Description No Information Available
--- OUTSIDE RECORDS SUMMARY | 2021-04-09 13:39 | CCD ---
Author Author [facility] Organization [facility] Address Unknown Phone Unavailable Care Team Providers Care Aviation Boatswain'S Mate Name Role Phone Aleyda Arteaga Unavailable PROBLEMS Type Condition ICD9-CM Code [id number] Code Onset Dates Condition S tatus W/U Status Risk SNOMED Code Notes Problem Female dyspareunia N94.10 Active confirmed 8 9588477 Problem Menopausal and postmenopausal disorder N95.9 A ctive confirmed 107229658 Problem Menopausal problem N95.9 Active confirmed 6 7863781 Problem Symptomatic menopausal or female climacteric states N95.1 Active confirmed 61525921 Problem Postmenopausal atrophic vaginitis N95.2 Active con firmed [id number] ALLERGIES Allergen (clinical drug ingredient) Drug/Non Drug Allergy do cumented on EMR Reaction Allergy Type Onset Date Status codeine Codeine Sulfate([facility] Code:[address]-47) dizzines s, upset stomach Drug Allergy Active ENCOUNTERS from 1945 to 2021-03-21 Encounter Location Date Provider Diagnosis [facility] [address] [place] [address] [place] [address] Feb, Aleyda Chandler IMMUNIZATIONS No Information SOCIAL [...] Information RESULTS No Results REASON FOR VISIT Uti MEDICAL (GENERAL) HISTORY Type Description Date Medical [...] Part A and B [address] [facility] [address] [phone] ZOLTAN HERNANDEZ [facility] [place] [facility] [address] [place] [address] Yasir Hernandez
--- OUTSIDE RECORDS SUMMARY | 2021-04-09 13:39 | CCD ---
Author Author [facility] Organization [facility] Address Unknown Phone Unavailable Care Team Providers Care Stem Teacher Name Role Phone Aleyda Arteaga Unavailable PROBLEMS Type Condition ICD9-CM Code [id number] Code Onset Dates Condition S tatus W/U Status Risk SNOMED Code Notes Problem Female dyspareunia N94.10 Active confirmed 8 7574541 Problem Menopausal and postmenopausal disorder N95.9 A ctive confirmed 008670754 Problem Menopausal problem N95.9 Active confirmed 6 2761643 Problem Symptomatic menopausal or female climacteric states N95.1 Active confirmed 68967624 Problem Postmenopausal atrophic vaginitis N95.2 Active con firmed [id number] ALLERGIES Allergen (clinical drug ingredient) Drug/Non Drug Allergy do cumented on EMR Reaction Allergy Type Onset Date Status codeine Codeine Sulfate([facility] Code:[address]-88) dizzines s, upset stomach Drug Allergy Active ENCOUNTERS from 1945 to 2021-03-21 Encounter Location Date Provider Diagnosis [facility] [address] [place] [address] [place] [address] Feb, Aleyda Chandler IMMUNIZATIONS No Information SOCIAL [...] Part A and B [address] [facility] [address] [phone] ZOLTAN HERNANDEZ [place] [address] [address] [place] [address] Yasir Hernandez
--- OUTSIDE RECORDS SUMMARY | 2021-04-09 13:39 | CCD ---
Author Author [facility] Organization [facility] Address Unknown Phone Unavailable Care Team Providers Care Home Care Provider Name Role Phone Chandler Aleyda Unavailable PROBLEMS Type Condition ICD9-CM Code [id number] Code Onset Dates Condition S tatus W/U Status Risk SNOMED Code Notes Problem Female dyspareunia N94.10 Active confirmed 8 0005005 Problem Menopausal and postmenopausal disorder N95.9 A ctive confirmed 071264822 Problem Menopausal problem N95.9 Active confirmed 6 1692909 Problem Symptomatic menopausal or female climacteric states N95.1 Active confirmed 30439694 Problem Postmenopausal atrophic vaginitis N95.2 Active con firmed [id number] ALLERGIES Allergen (clinical drug ingredient) Drug/Non Drug Allergy do cumented on EMR Reaction Allergy Type Onset Date Status codeine Codeine Sulfate([facility] Code:[address]-13) dizzines s, upset stomach Drug Allergy Active ENCOUNTERS from 1945 to 2021-03-26 Encounter Location Date Provider Diagnosis [facility] [address] [place] [address] [place] [address] Mar, Aleyda Arteaga IMMUNIZATIONS No Information SOCIAL [...] Information RESULTS No Results REASON FOR VISIT urinating and pelvic pain MEDICAL (GENERAL) HISTORY Type Description Date Medical [...] Part A and B [address] [facility] [address] ZOLTAN HERNANDEZ [place] [address] [address] [place] [address] Yasir Hernandez
--- OUTSIDE RECORDS SUMMARY | 2021-04-09 13:39 | CCD ---
Author Author [facility] Organization [facility] Address Unknown Phone Unavailable Care Team Providers Care Wind Turbine Performance Engineer Name Role Phone Aleyda Arteaga Unavailable PROBLEMS Type Condition ICD9-CM Code KKD28-UW Code Onset Dates Condition S tatus W/U Status Risk SNOMED Code Notes Problem Female dyspareunia N94.10 Active confirmed 8 3601552 Problem Menopausal and postmenopausal disorder N95.9 A ctive confirmed 420445385 Problem Menopausal problem N95.9 Active confirmed 6 9123914 Problem Symptomatic menopausal or female climacteric states N95.1 Active confirmed 97476739 Problem Postmenopausal atrophic vaginitis N95.2 Active con firmed 85055514 ALLERGIES Allergen (clinical drug ingredient) Drug/Non Drug Allergy do cumented on EMR Reaction Allergy Type Onset Date Status codeine Codeine Sulfate([facility] Code:[address]-11) dizzines s, upset stomach Drug Allergy Active ENCOUNTERS from 1945 to 2021-03-21 Encounter Location Date Provider Diagnosis [facility] [address] [place] [address] [place] [address] Feb, Aleyda Arteaga Dysuria R30.0 IMMUNIZATIONS No Information SOCIAL HISTORY Tobacco Use: [...] days Feb, Active PROCEDURES No Information RESULTS Component Value Reference Range Urinalysis, Complete with Micro Reviewed date:03/19/2021 11:35:45 Interpretation: Performing Lab:[facility], ,[place] [address] Microscopic Examination Urine-Color red Appearance clear with clot Specific [place] 1.010 pH 7 Glucose negative Protein 2+ Occult Blood 3+ Bilirubin 2+ Urobilinogen,Semi-Qn 1+ Nitrite, Urine positive Ketones small WBC Esterase 2+ Urinalysis Gross Exam Microscopic Examination UA URINALYSIS Reviewed date:03/19/2021 16:11:23 Interpretation: Performing Lab:[facility] [address] [address] , ,[place] [address] URINE CULTURE Reviewed date:03/21/2021 13:10:06 Interpretation: Performing Lab:[facility] [address] [address] , ,[facility] REASON FOR VISIT urine test MEDICAL (GENERAL) HISTORY Type Description Date Medical [...] Treatment Notes Treatm ent Clinical Notes Feb, Dysuria (ICD-10 - R30.0) PLAN OF TREATMENT Medication Medication Name Sig [...] Date Coverage End Date BS [place] [facility] [place] [address] [place] [address] Hipolito Hernandez MEDICARE Part A and B [address] [facility] [phone] ZOLTAN HERNANDEZ self
--- OUTSIDE RECORDS SUMMARY | 2021-04-09 13:39 | CCD | Continuity of Care Document ---
Author Author Riddhi AYERS MD Organization Unknown Address [address] [facility] [address] [place] [address] Phone [phone] Care Team Providers Care Heading Matcher And Assembler Name Role Phone Lukasz Ayers M.D. 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 Onset: 11/06/2018 Electrocardiogram abnormal Onset: 2018 Mitral valve disorder Onset: 11/06/2018 Palpitations Onset: 11/06/2018 Social History Type Date Description Comments Sex Unknown ETOH Use Occasionally consumes alcohol Tobacco Use Reviewed: 01/30/21 Patient has never smoked Smoking Status Reviewed: 02/01/21 Patient has never smoked Exercise Type/Frequency Exercises regularly Allergies, Adverse Reactions, Alerts Active Allergies Criticality Reaction | Severity Comments Date Codeine Unable to assess criticality 11/27/2018 Codeine Sulfate Unable to assess criticality 11/13/2015 Medications Active Medications SIG Qnty Indications Ordering Provide r Date Hyoscyamine Sulfate SL 0.125mg Tablets Sub 1 four times a day needed 50tabs R10.84 Lukasz ruth MD 03/28/2020 Diflucan 150mg Tablets take 1 tab by mouth x 1 day 1tabs Lukasz Ayers MD 11/23/2019 Vitamin K2 100mcg Capsules 1 capsule PO daily Unknown 12/31/2018 Vitamin K2 40mcg Tablets 2 capsules PO daily Unknown 12/31/2018 Contour Blood Glucose Test Strips Strips use to test blood sugar twice a day directed 300Strip Lukasz Ayers MD 12/17/2018 Metoprolol Succinate ER 100mg Tablets ER 24HR 1 by mouth every day 90tabs Lukasz Ayers MD 0 12/07/[address] 1 by mouth every day Unknown 11/05/2018 Vitamin D3 Ultra Strength 5000Unit Capsules 1 by mouth every day Unknown 019 Coenzyme Q10 200mg Capsules 1 by mouth every day Unknown 11/05/2018 Shingrix 50mcg/0.5ML Suspension Re c 0.5 milliliters intramuscular AT month 0, repeat in 2-6 months 1units Lukasz Ayers MD 09/23/2018 [place] 3 1000mg Capsules 4800 every day 30caps Lukasz Ayers MD 05/09/2017 Co Q-10 200mg Capsules 1 ever y day Lukasz Ayers MD 05/09/2017 Irbesartan 150mg Tablets take 1 tablet by mouth once daily 90tabs I10 Lukasz Ayers MD 04/25/2017 Escitalopram Oxalate 10mg Tablets take one tablet by mouth once daily 90tabs Lukasz Ayers MD Vitamin D3 5000Unit Tablets Dispense 90 Take 1 tablet orally every day Refills: 3 Unkno wn 10/10/2010 Alprazolam 0.25mg Tablets take 1 tablet by mouth 4 times daily needed . do not exceed 4 per 24 hours 120tabs Lukasz Ayers MD 02/28/2009 Vitamin K2 180 mcg once a day Unknown Magnesium 120 MG twice a day Unknown 0 000 Spironolactone 25mg Tablets 1/2 by mouth every day Unknown Chlorthalidone 25mg Tablets 1/2 by mouth every Fri Unknown Medications Administered in Office Medication SIG Qnty Indications Ordering Provider Date Administer Influenza Virus Vaccine Injection Lukasz Ayers MD 0 Administer Influenza Virus Vaccine Injection Lukasz Ayers MD 9 Administer Influenza Virus Vaccine Injection Lukasz Ayers MD 8 Administer Influenza Virus Vaccine Injection Lukasz Ayers MD 7 Administer Pneumococcal Vaccine No Physi lisbeth Fee Sched Same Day Injection Lukasz grajeda MD 04/25/2016 Administer Influenza Virus Vaccine Injection Lukasz Ayers MD 6 Immunizations CPT Code Status Date Vaccine Lot # [id number] Given 10/04/2020 Covid-19 vaccine, 30mcg/0.3m L 95636 Given 09/03/2020 Covid-19 vaccine, 30mcg/0.3m L 74819 Given 03/28/2020 Influenza, Flucelvax single dose (preservative free) [id number] 32870 Given 03/25/2019 Influenza, Flucelvax multi d ose [id number] 68059 Given 04/13/2018 Influenza Vaccin e, Quadrivalent, Split Virus, Im Use (Multi-Dose) [id number] 10367 Given 04/25/2017 Influenza Vaccin e, Quadrivalent, Split Virus, Im Use (Multi-Dose) [id number] 23461 Given 04/25/2016 Prevnar 13 69357 Given 04/25/2016 Influenza Virus Vaccine, Spl [place] 3 [place] [address] Given 04/05/2015 Influenza Virus Vaccine, Spl [place] 3 [place] [address] Given 04/12/2014 Influenza Virus Vaccine, Spl it 3 [place] [address] Given 03/29/2013 Influenza Virus Vaccine, Spl [place] [address] Given 03/26/2012 Influenza Virus Vaccine, Spl it 3 [place] [address] Given 04/11/2011 Influenza Virus Vaccine, Spl [place] 3 [place] [address] Given 03/05/2010 Influenza Virus Vaccine, Spl it 3 [place] [address] Given 03/05/2010 Influenza Virus Vaccine, Spl it 3 Yrs AB Vital Signs Date Vital Result Comment 02/01/2021 1:27pm Height 66.00 inches 5'6" Weight 165.00 lb BMI (Body Mass Index) 26.6 kg/m2 BP Systolic 116 mmHg BP Diastolic 72 mmHg Heart Rate 60 /min Body Temperature 96.9 F Body Temperature 36.1 C Respiratory Rate 16 /min 11/14/2020 11:29am Height 66.00 inches 5'6" Weight 164.00 lb BMI (Body Mass Index) 26.5 kg/m2 BP Systolic 140 mmHg BP Diastolic 72 mmHg Heart Rate 58 /min Body Temperature 97.3 F Body Temperature 36.3 C O2 % BldC Oximetry 95 % Results Test Acquired Date Facility Test Result H/L Range Note CMP-Female 02/01/2021 [facility] [address] [place] [address] [phone] Glucose 89 mg/dL 74-106 1 BUN 23 mg/dL High 6-20 Creatinine 0.9 mg/dL 0.5-1.3 Sodium 139 mmol/L 136-145 Potassium 4.5 mmol/L 3.5-5.3 Chloride 102 mmol/L 98-107 Co2 27 mEq/L 20-31 Anion Gap 10 mmol/L 7-16 eGFR-female 61 mL/m/1.73m - eGFR-Aa female 74 mL/m/1.73m - 2 Alk. Phos. 53 U/L 46-116 Alt 24 U/L 4-36 3 Ast 29 U/L 8-33 Total Bilirubin 0.4 mg/dL 0.3-1.2 Total Protein 7.6 g/dL 6.4-8.3 4 Albumin 4.7 g/dL 3.6-5.1 A/G Ratio 1.6 Ratio 1.0-2.0 Globulin 2.9 g/dL 1.9-3.7 Calcium 9.8 mg/dL 8.9-10.5 Cbcadp 02/01/2021 [facility] [address] [place] [address] [phone] WBC. 5.32 x10E3/uL 4.2-12.0 RBC 4.14 x10E6/uL 3.9-5.4 HGB 13.5 g/dL 12.0-16.0 HCT 41.2 % 36-47 MCV 99.6 fL High 80-98 MCH 32.5 pg 27-33 MCHC 32.7 g/dL 32-36 RDW 13.6 % 11.2-15.2 PLT 287 x10E3/uL 135-420 MPV 7.9 fL 7.0-12.3 % Charles 54.7 % 41.0-80.0 %Lym 32.1 % 10.0-45.2 %Cloud 6.2 % 2.0-13.0 %Eos 6.7 % 0.0-8.0 %Baso 0.2 % 0.0-3.0 Neut 2.9 x10E3/uL 2.0-8.1 Lymp 1.7 x10E3/uL 0.6-3.1 Cloud 0.3 x10E3/uL 0.0-1.0 Eos 0.4 x10E3/uL 0.0-0.6 Baso 0.0 x10E3/uL 0.0-0.2 LPPM 02/01/2021 [facility] [address] [place] [address] [phone] Cholesterol 239 mg/dL High 0-200 Triglycerides 121 mg/dL 0-249 5 HDL 89 mg/dL High 40-60 LDL-Calculated 126 mg/dL 0-130 VLDL 24 mg/dL 0-28 Cardiac Risk 2.69 Ratio Low 3.7-5.3 Laboratory test finding 02/01/[address] [address] [phone] TSH3 2.050 mIU/ml 0.350-5.500 6 Free T4 0.98 ng/dL 0.89-1.80 7 Uam 02/01/2021 [facility] [address] [place] [address] [phone] Color. YELLOW - Clarity. CLEAR Clear-Clear Specific Harriet. 1.015 1.005-1.030 PH. 5.5 4.6-8.0 Protein. NEGATIVE Neg-Negative Glucose, Urine NEGATIVE Neg-Negative Ketone. NEGATIVE Neg-Negative bilirubin. NEGATIVE Neg-Negative Blood. NEGATIVE Neg-Negative Nitrite. NEGATIVE Neg-Negative Leukocytes. NEGATIVE Neg-Negative Red Blood Cell 0-2 0-2 White Blood Cell 0-2 0-5 Squamous Epithelial Cell 0-2 0-10 Bacteria. NEGATIVE Neg-Negative Laboratory test finding 02/01/2021 [facility] [address] [address] [phone] Vitamin D, 25(Oh). 69.13 ng/ml 30-100 8 Venipuncture DONE - 9 CMP-Female 11/14/2020 [facility] [address] [place] [address] [phone] Glucose 96 mg/dL 74-106 10 BUN 19 mg/dL 6-20 Creatinine 0.8 mg/dL 0.5-1.3 Sodium 140 mmol/L 136-145 Potassium 4.7 mmol/L 3.5-5.3 Chloride 105 mmol/L 98-107 Co2 28 mEq/L 20-31 Anion Gap 7 mmol/L 7-16 eGFR-female 70 mL/m/1.73m - eGFR-Aa female 85 mL/m/1.73m - 11 Alk. Phos. 53 U/L 46-116 Alt 20 U/L 4-36 12 Ast 23 U/L 8-33 Total Bilirubin 0.7 mg/dL 0.3-1.2 Total Protein 6.8 g/dL 6.4-8.3 13 Albumin 4.4 g/dL 3.6-5.1 A/G Ratio 1.8 Ratio 1.0-2.0 Globulin 2.4 g/dL 1.9-3.7 Calcium 9.9 mg/dL 8.9-10.5 LPPM 11/14/2020 [facility] [address] [place] [address] [phone] Cholesterol 210 mg/dL High 0-200 Triglycerides 71 mg/dL 0-249 14 HDL 90 mg/dL High 40-60 LDL-Calculated 106 mg/dL 0-130 VLDL 14 mg/dL 0-28 Cardiac Risk 2.33 Ratio Low 3.7-5.3 Laboratory test finding 11/14/2020 [facility] [address] [place] [address] [phone] Hgb A1c 5.8 % 3.6-6.9 15 Est. Average Glucose 120 mg/dL - 16 Venipuncture DONE - 1 [place] Diabetes Associatio n (ADA) Recommended Range is 65-99 mg/dL 2 Normal Kidney Function or Mi ld Disease GFR >59 mL/min/1.73m2 Chronic Kidney Disease GFR 15-59 mL/min/1.73m2 Renal Failure GFR <15 mL/min/1.73m2 3 Effective 12/21/2016: [employer] has indicated interference with the drugs sulfasalazine and sulfapyridine. They suggest collection should occur prior to drug administration due to falsely depressed results. 4 Results may reflect a potent ial interference in Total Protein results in patients receiving dextran as blood volume expanders. 5 National Cholesterol Educati on Program (NCEP) Guidelines: Recommended Range <150 mg/dL 6 fasting 7 fasting 8 Recommended Levels for Circu lating 25-hydroxy Vitamin D: Vitamin D Status 25-OH Vitamin D Test Result Deficient <10ng/mL Insufficient 10-29ng/mL Sufficient 30-100ng/mL Potential Intoxication >100ng/mL A pediatric reference range has not been established using this method. 9 fasting 10 [place] Diabetes Associatio n (ADA) Recommended Range is 65-99 mg/dL 11 Normal Kidney Function or Mi ld Disease GFR >59 mL/min/1.73m2 Chronic Kidney Disease GFR 15-59 mL/min/1.73m2 Renal Failure GFR <15 mL/min/1.73m2 12 Effective 12/21/2016: [employer] has indicated interference with the drugs sulfasalazine and sulfapyridine. They suggest collection should occur prior to drug administration due to falsely depressed results. 13 Results may reflect a potent ial interference in Total Protein results in patients receiving dextran as blood volume expanders. 14 National Cholesterol Educati on Program (NCEP) Guidelines: Recommended Range <150 mg/dL 15 Hgb A1c Interpretation: <5.8% - Non-diabetic >6.5% - Diabetic <7.0% - ADA diabetic treatment goal 16 The Estimated Average Glucos e is a calculation of the average glucose over the last 120 days including non-fasting as well as fasting levels. Procedures Date Code Description Status 02/01/2021 47690 Office/Outpatient Established Mo d MDM 30-39 Min Completed 11/14/2020 29705 Office/Outpatient Established Mo d MDM 30-39 Min Completed Medical Devices Description No Information Available Encounters Type Date Location Provider Dx Diagnosis Office Visit 02/01/2021 2:00p [facility]MP Primary Care AT [facility] humble Ayers MD I10 Essential (primary) hyperten brenton Z00.00 Encntr for general adult med ical exam w/o abnormal findings F41.1 Generalized anxiety disorder R00.2 Palpitations F32.0 Major depressive disorder, s jenny episode, mild Z13.31 Encounter for screening for depression Office Visit 11/14/2020 11:30a [facility] Primary Care AT [facility] humble Ayers MD E11.9 Type 2 diabetes mellitus wit hout complications E55.9 Vitamin D deficiency, unspec ified I10 Essential (primary) hyperten brenton Assessments Date Code Description Provider 02/01/2021 I10 Essential (primary) hypertension [facility] 02/01/2021 E11.9 Type 2 diabetes mellitus without complications [facility] 02/01/2021 I10 Essential (primary) hypertension Lukasz Ayers MD 02/01/2021 E55.9 Vitamin D deficiency, unspecifie d [facility] 02/01/2021 Z00.00 Encounter for general adult medi kyle examination without abno Lukasz Ayers MD 02/01/2021 F41.1 Generalized anxiety disorder Andrew red Ayers MD 02/01/2021 R00.2 Palpitations Lukasz Ayers MD 02/01/2021 F32.0 Major depressive disorder, singl e episode, mild Lukasz Ayers MD 02/01/2021 Z13.31 Encounter for screening for depr ession Lukasz Ayers MD 11/14/2020 E11.9 Type 2 diabetes mellitus without complications Lukasz Ayers MD 11/14/2020 E55.9 Vitamin D deficiency, unspecifie d Lukasz Ayers MD 11/14/2020 I10 Essential (primary) hypertension Lukasz Ayers MD 11/14/2020 E11.9 Type 2 diabetes mellitus without complications [facility] Plan of Treatment Future Appointment(s):* 10/09/2021 11:00 am - Lukasz Ayers MD at [facility] Primary Care AT [facility] 02/01/2021 - Lukasz Ayers MD* I10 Essential (primary) hypertension* Follow up:* OV Fasting Spring * Z00.00 Encounter for general adult medical examination without abno * F41.1 Generalized anxiety disorder * R00.2 Palpitations * F32.0 Major depressive disorder, single episode, mild * Z13.31 Encounter for screening for depression Functional Status Description No Information Available Mental Status Description No Information Available Referrals Description No Information Available
--- OUTSIDE RECORDS SUMMARY | 2021-04-09 13:39 | CCD ---
Author Author [facility] Organization [facility] Address Unknown Phone Unavailable Care Team Providers Care Quality Review Trainer Name Role Phone Yasmani Elvin Unavailable PROBLEMS Type Condition ICD9-CM Code [id number] Code Onset Dates Condition S tatus W/U Status Risk SNOMED Code Notes Problem Female dyspareunia N94.10 Active confirmed 8 6371522 Problem Menopausal and postmenopausal disorder N95.9 A ctive confirmed 904300076 Problem Menopausal problem N95.9 Active confirmed 6 9145487 Problem Symptomatic menopausal or female climacteric states N95.1 Active confirmed 67716950 Problem Postmenopausal atrophic vaginitis N95.2 Active con firmed [id number] ALLERGIES Allergen (clinical drug ingredient) Drug/Non Drug Allergy do cumented on EMR Reaction Allergy Type Onset Date Status codeine Codeine Sulfate([facility] Code:[address]-12) dizzines s, upset stomach Drug Allergy Active ENCOUNTERS from 1945 to 2021-04-07 Encounter Location Date Provider Diagnosis [facility] [address] [place] [address] [place] [address] Mar, Elvin Gruber IMMUNIZATIONS No Information SOCIAL [...] Information RESULTS No Results REASON FOR VISIT Re:RE:Urine test MEDICAL (GENERAL) HISTORY Type Description Date [...] day(s) Mar Next Appt Details Provider Name:Laura L Juan Carlos, 2021-04- 0 09:00:00 AM, [address], , [place], [address], Insurance Providers Payer Name Payer Address Payer Phone Insured Name Patient Relati onship to Insured Coverage Start Date Coverage End Date BS [place] [facility] [place] [address] [place] [address] Yasir Shabazz MEDICARE Part A and B [address] [facility] [address] ZOLTAN SHABAZZ self
--- OUTSIDE RECORDS SUMMARY | 2021-04-09 13:39 | CCD ---
Author Author [facility] Organization [facility] Address Unknown Phone Unavailable Care Team Providers Care Emergency Detail Driver Name Role Phone Elvin Gruber Unavailable PROBLEMS Type Condition ICD9-CM Code SUC76-UQ Code Onset Dates Condition S tatus W/U Status Risk SNOMED Code Notes Problem Female dyspareunia N94.10 Active confirmed 8 0781876 Problem Menopausal and postmenopausal disorder N95.9 A ctive confirmed 960001790 Problem Menopausal problem N95.9 Active confirmed 6 7339798 Problem Symptomatic menopausal or female climacteric states N95.1 Active confirmed 37916761 Problem Postmenopausal atrophic vaginitis N95.2 Active con firmed 80735998 ALLERGIES Allergen (clinical drug ingredient) Drug/Non Drug Allergy do cumented on EMR Reaction Allergy Type Onset Date Status codeine Codeine Sulfate([facility] Code:[address]-96) dizzines s, upset stomach Drug Allergy Active ENCOUNTERS from 1945 to 2021-04-05 Encounter Location Date Provider Diagnosis [facility] [address] [place] [address] [place] [address] Mar, Elvin Gruber UTI (urinary tract i nfection) N39.0 IMMUNIZATIONS No Information SOCIAL HISTORY Tobacco Use: [...] RESULTS No Results REASON FOR VISIT Urine test MEDICAL (GENERAL) HISTORY Type Description Date [...] Notes Treatment Notes Treatm ent Clinical Notes Mar, UTI (urinary tract infection) (ICD-10 - N39.0) PLAN OF TREATMENT Medication Medication Name Sig [...] Mar Next Appt Details Provider Name:Laura Rangel, 2020-11-1 0 09:00:00 AM, [address], , [place], [address], Insurance Providers Payer Name Payer Address Payer Phone Insured Name Patient Relati onship to Insured Coverage Start Date Coverage End Date [facility] [place] [facility] [address] [facility] [address] Yasir Shabazz MEDICARE Part A and B [address] [facility] [address] [phone] ZOLTAN SHABAZZ self
--- OUTSIDE RECORDS SUMMARY | 2021-04-09 13:39 | CCD ---
Author Author [facility] Organization [facility] Address Unknown Phone Unavailable Care Team Providers Care Early Childhood Specialist Name Role Phone Yasmani Elvin Unavailable PROBLEMS Type Condition ICD9-CM Code [id number] Code Onset Dates Condition S tatus W/U Status Risk SNOMED Code Notes Problem Female dyspareunia N94.10 Active confirmed 8 7038316 Problem Menopausal and postmenopausal disorder N95.9 A ctive confirmed 355335541 Problem Menopausal problem N95.9 Active confirmed 6 7825854 Problem Symptomatic menopausal or female climacteric states N95.1 Active confirmed 00848031 Problem Postmenopausal atrophic vaginitis N95.2 Active con firmed 50535100 ALLERGIES Allergen (clinical drug ingredient) Drug/Non Drug Allergy do cumented on EMR Reaction Allergy Type Onset Date Status codeine Codeine Sulfate([facility] Code:[address]-71) dizzines s, upset stomach Drug Allergy Active ENCOUNTERS from 1945 to 2021-04-05 Encounter Location Date Provider Diagnosis [facility] [address] [place] [address] [place] [address] Mar, Elvin Gruber IMMUNIZATIONS No Information SOCIAL [...] Provider Name:Laura Rangel, 2021-04- 0 09:00:00 AM, [address], , [place], [address], Insurance Providers Payer Name Payer Address Payer Phone Insured Name Patient Relati onship to Insured Coverage Start Date Coverage End Date BS [place] [facility] [address] [place] [address] Yasir Shabazz MEDICARE Part A and B [address] [facility] [address] [phone] ZOLTAN SHABAZZ self
--- OUTSIDE RECORDS SUMMARY | 2021-04-09 13:39 | CCD | Continuity of Care Document ---
Author Author Riddhi BEAVERS Organization Unknown Address [address] [place] [address], [facility] [place] [address] Phone [phone] Care Team Providers Care Correspondence Section Supervisor Name Role Phone Lukasz Ayers MD [facility] [phone] Problems Active Problems Provider Date Palpitations Villa Barnes MD Onset: 11/06/2018 Electrocardiogram abnormal Villa Barnes MD Onset: 2018 Mitral valve disorder Villa Barnes MD Onset: 11/06/2018 Aortic valve disorder Villa Barnes MD Onset: 11/06/2018 Benign hypertensive heart disease without congestive h eart failure Villa Barnes MD Onset: 11/06/2018 Pulmonary hypertension Villa Barnes MD Onset: 11/27/2020 Disturbance in sleep behavior [place] Edgar Onset: 02/15/2021 Social History Type Date Description Comments Sex Unknown ETOH Use Occasionally consumes alcohol Tobacco Use Start: Unknown Patient has never smoked Exercise Type/Frequency Fully active: Ab le to carry on all performance without restriction Exercise Limitations Palpitations Exercise Limitations Fatigue Allergies, Adverse Reactions, Alerts Active Allergies Criticality Reaction | Severity Comments Date Codeine Unable to assess criticality Nausea 11/06/2018 Medications Active Medications SIG Qnty Indications Ordering Provide r Date Metoprolol Succinate ER 100mg Tablets ER 24HR 1 by mouth every day Lukasz Ayers MD 02/14/2021 Turmeric Curcumin 5-1000mg Capsule s 1 by mouth daily Unknown 02/14/2021 Spironolactone 25mg Tablets 1/2 by mouth every day 45tabs I11.9 Villa Barnes MD 11/27/2020 Chlorthalidone 25mg Tablets 1/2 by mouth mondays, wednesdays and fridays only 18tabs I11.9 Villa bassett MD 11/27/2020 Vitamin K2 100mcg Capsules 1 capsule po daily Unknown 12/31/2018 Xanax 0.25mg Tablets 1 by mouth 3 times daily as needed Unknown 11/05/[address] 1 by mouth every day Unknown 11/05/2018 Escitalopram Oxalate 10mg Tablets 1 by mouth every day Unknown 11/05/2018 Irbesartan 150mg Tablets 1 by mouth every day Unknown 11/05/2018 Vitamin D3 Ultra Strength 5000Unit Capsules 1 by mouth every day Unknown 019 [place] 3 1200mg Capsules 4 by mouth every day Unknown 11/05/2018 Coq10 200mg Capsules 1 by mouth every day Unknown 11/05/2018 Immunizations Description No Information Available Vital Signs Date Vital Result Comment 02/15/2021 7:52am Weight 164.00 lb Home Weight 163lb Height 65 inches 5'5" BMI (Body Mass Index) 27.3 kg/m2 BP Systolic Sitting 118 mmHg Ra, medium cuff BP Diastolic Sitting 70 mmHg Ra, medium cuff 11/27/2020 10:39am Weight 164.00 lb Home Weight 162lb home weight Height 65 inches 5'5" BMI (Body Mass Index) 27.3 kg/m2 Heart Rate 60 /min regular Respiratory Rate 16 /min BP Systolic Sitting 152 mmHg Medium cuff, Ra BP Diastolic Sitting 78 mmHg Medium cuff, Ra BP Systolic Lying Down 152 mmHg BP Diastolic Lying Down 76 mmHg Results Test Acquired Date Facility Test Result H/L Range Note CBC without Differential 02/01/2021 [facility] ([facility] - White Blood Count 5.32 4.2-12.0 Red Blood Count 4.14 3.9-5.4 Platelets 287 135-420 Hemoglobin 13.5 12.0-16.0 Hematocrit 41.2 36-47 CMP 02/01/2021 [facility] ([facility])- - Albumin Serum/Plasma 4.7 Alt - SGPT 24 Calcium Ser/Plasma Mass/Vol 9.8 Carbon Dioxide Ser/Plasm 27 Chloride Serum/Plasma 102 Alkaline Phosphatase 53 Potassium 4.5 Protein Total 7.6 Sodium 139 Ast - Sgot 29 BUN - Urea Nitrogen 23 Glucose 89 74-106 Creatinine For GFR 0.9 Lipid Profile/Cardiac Risk Pro 02/01/2021 [facility] ([facility])- - Triglycerides 121 Cholesterol 239 High 0-200 HDL 89 High 40-60 LDL Cholesterol 126 Chol/HDL Ratio -- Renal Profile 12/18/2020 [facility] nter [phone] Glucose, Fasting 92 mg/dL Normal 70-100 Blood Urea Nitrogen 18 mg/dL Normal 7-18 Creatinine For GFR 0.81 mg/dL Normal 0.55-1.30 Glomerular Filtration Rate > 60.0 Normal >39 1 Sodium Level 139 mEq/L Normal 136-145 Potassium Serum 4.7 mEq/L Normal 3.5-5.1 Chloride Level 106 mEq/L Normal 98-107 Carbon Dioxide Level 29 mEq/L Normal 21-32 Anion Gap 4 mEq/L Low 8-16 Calcium Level 9.0 mg/dL Normal 8.8-10.2 Phosphorus Level 3.3 mg/dL Normal 2.5-4.9 Albumin 3.8 GM/DL Normal 3.2-5.2 Laboratory test finding 12/18/2020 [facility] [phone] NT-Pro BNP 403 pg/mL High <125 CMP 11/14/2020 [facility] Albumin Serum/Plasma 4.4 Alt - SGPT 20 Calcium Ser/Plasma Mass/Vol 9.9 Carbon Dioxide Ser/Plasm 28 Chloride Serum/Plasma 105 Alkaline Phosphatase 53 Potassium 4.7 Protein Total 6.8 Sodium 140 Ast - Sgot 23 BUN - Urea Nitrogen 19 Glucose 96 Creatinine For GFR 0.8 Lipid Profile/Cardiac Risk Pro 11/14/2020 [facility] Triglycerides 71 Cholesterol 210 HDL 90 LDL Cholesterol 106 Chol/HDL Ratio 2.33 1 Units are mL/min/1.73 m2 Chronic Kidney Disease Staging per NKF: Stage I & II GFR >=60 Normal to Mildly Decreased Stage III GFR 30-59 Moderately Decreased Stage IV GFR 15-29 Severely Decreased Stage V GFR <15 Very Little GFR Left ESRD GFR <15 on [employer] Procedures Date Code Description Status 02/15/2021 14361 Office/Outpatient Established Mo d MDM 30-39 Min Completed 01/30/2021 10228 Holter Monitor MD Review And Rep ort Completed 01/30/2021 21228 Holter Hookup,Recording,Disconne ct Completed 12/12/2020 82912 Echocardiogram 2-D Doppler Color Completed 11/27/2020 92457 Office/Outpatient Established Mo d MDM 30-39 Min Completed 11/27/2020 47960 ECG 12-Lead Completed Medical Devices Description No Information Available Encounters Type Date Location Provider Dx Diagnosis Office Visit 02/15/2021 8:00a Main Office [place] R00 .2 Palpitations I11.9 Hypertensive heart disease w ithout heart failure I34.0 Nonrheumatic mitral (valve) insufficiency I35.1 Nonrheumatic aortic (valve) insufficiency G47.9 Sleep disorder, unspecified Office Visit 11/27/2020 10:15a Main Office Villa Barnes MD R00.2 Palpitations R94.31 Abnormal electrocardiogram [ ECG] [EKG] I11.9 Hypertensive heart disease w ithout heart failure I34.0 Nonrheumatic mitral (valve) insufficiency I35.1 Nonrheumatic aortic (valve) insufficiency I27.20 Pulmonary hypertension, unsp ecified Assessments Date Code Description Provider 02/15/2021 R00.2 Palpitations [place] Tapia Cha, se 02/15/2021 I11.9 Hypertensive heart disease witho ut heart failure [place] Edgar 02/15/2021 I34.0 Nonrheumatic mitral (valve) insu fficiency [place] 02/15/2021 I35.1 Nonrheumatic aortic (valve) insu fficiency [place] 02/15/2021 G47.9 Sleep disorder, unspecified [place] Laws 01/30/2021 E78.2 Mixed hyperlipidemia Holter/Even t/Telemetry 01/30/2021 R00.2 Palpitations Holter/Event/Tel emetry 12/12/2020 I34.0 Nonrheumatic mitral (valve) insu fficiency ECHO 12/12/2020 I35.1 Nonrheumatic aortic (valve) insu fficiency ECHO 12/12/2020 I27.20 Pulmonary hypertension, unspecif ied ECHO 12/12/2020 R00.2 Palpitations ECHO 11/27/2020 R00.2 Palpitations Villa Barnes MD 11/27/2020 R94.31 Abnormal electrocardiogram [ECG] [EKG] Villa Barnes MD 11/27/2020 I11.9 Hypertensive heart disease witho ut heart failure Villa Barnes MD 11/27/2020 I34.0 Nonrheumatic mitral (valve) insu fficiency Villa Barnes MD 11/27/2020 I35.1 Nonrheumatic aortic (valve) insu fficiency Villa Barnes MD 11/27/2020 I27.20 Pulmonary hypertension, unspecif ied Villa Barnes MD Plan of Treatment Future Appointment(s):* 10/29/2021 8:45 am - [place] Edgar at Main Office 02/15/2021 - [place]* R00.2 Palpitations* Recommendations:* Patient agreeable to contact us if these palpitations change or worsen Continue metoprolol at the current dosage * I11.9 Hypertensive heart disease without heart failure* Recommendations:* Continue chlorthalidone, spironolactone, metoprolol and irbesartan at the current dosages Advised patient to please take chlorthalidone and spironolactone in the mornings to avoid nocturia She is agreeable to let us know if she continues to feel tired on these medications Advised patient to please monitor blood pressures at home and to alert our office with readings > 140/>90 * I34.0 Nonrheumatic mitral (valve) insufficiency* Recommendations:* Plan for repeat echocardiogram Doppler in 2-3 years * I35.1 Nonrheumatic aortic (valve) insufficiency * G47.9 Sleep disorder, unspecified* Recommendations:* She is agreeable to let us know if she wishes for further follow up * All * Follow up:* FU Functional Status Functional Condition Comment Date Status Independent with all ADL's Activ e Mental Status Description No Information Available Referrals Description No Information Available
--- OUTSIDE RECORDS SUMMARY | 2021-04-09 13:40 | CCD ---
Author Author [facility] Organization [facility] Address Unknown Phone Unavailable Care Team Providers Care Spindle Maker Name Role Phone Emir OROZCO MD Unavailable Unavailable Emir OROZCO MD Unavailable Unavailable Emir OROZCO MD Unavailable Unavailable Emir OROZCO MD Unavailable Unavailable Emir OROZCO MD Unavailable Unavailable Emir OROZCO MD Unavailable Unavailable Emir OROZCO MD Unavailable Unavailable Emir OROZCO MD Unavailable Unavailable Emir OROZCO MD Unavailable Unavailable Emir OROZCO MD Unavailable Unavailable Emir OROZCO MD Unavailable Unavailable Emir OROZCO MD Unavailable Unavailable Emir OROZCO MD Unavailable Unavailable Emir OROZCO MD Unavailable Unavailable Emir OROZCO MD Unavailable Unavailable Emir OROZCO MD Unavailable Unavailable Emir OROZCO MD Unavailable Unavailable Emir OROZCO MD Unavailable Unavailable Emir OROZCO MD Unavailable Unavailable Emir OROZCO MD Unavailable Unavailable Emir OROZCO MD Unavailable Unavailable Emir OROZCO MD Unavailable Unavailable Emir OROZCO MD Unavailable Unavailable Emir OROZCO MD Unavailable Unavailable Emir OROZCO MD Unavailable Unavailable Emir OROZCO MD Unavailable Unavailable Emir OROZCO MD Unavailable Unavailable Emir OROZCO MD Unavailable Unavailable Emir OROZCO MD Unavailable Unavailable Emir OROZCO MD Unavailable Unavailable Emir OROZCO MD Unavailable Unavailable Emir OROZCO MD Unavailable Unavailable Emir OROZCO MD Unavailable Unavailable Emir OROZCO MD Unavailable Unavailable Emir OROZCO MD Unavailable Unavailable Emir OROZCO MD Unavailable Unavailable Emir OROZCO MD Unavailable Unavailable Emir OROZCO MD Unavailable Unavailable Emir OROZCO MD Unavailable Unavailable Emir OROZCO MD Unavailable Unavailable Emir OROZCO MD Unavailable Unavailable Emir OROZCO MD Unavailable Unavailable Emir OROZCO MD Unavailable Unavailable Emir OROZCO MD Unavailable Unavailable Emir OROZCO MD Unavailable Unavailable Emir OROZCO MD Unavailable Unavailable Emir OROZCO MD Unavailable Unavailable Emir OROZCO MD Unavailable Unavailable Emir OROZCO MD Unavailable Unavailable Emir OROZCO MD Unavailable Unavailable Emir OROZCO MD Unavailable Unavailable Emir OROZCO MD Unavailable Unavailable Emir OROZCO MD Unavailable Unavailable Emir OROZCO MD Unavailable Unavailable BRIDGETT, HILLARY PA Unavailable Unavailable BRIDGETT, HILLARY PA Unavailable Unavailable BRIDGETT, HILLARY PA Unavailable Unavailable BRIDGETT, HILLARY PA Unavailable Unavailable BRIDGETT, HILLARY PA Unavailable Unavailable BRIDGETT, HILLARY PA Unavailable Unavailable BRIDGETT, HILLARY PA Unavailable Unavailable BRIDGETT, HILLARY PA Unavailable Unavailable BRIDGETT, HILLARY PA Unavailable Unavailable BRIDGETT, HILLARY PA Unavailable Unavailable BRIDGETT, HILLARY PA Unavailable Unavailable BRIDGETT, HILLARY PA Unavailable Unavailable BRIDGETT, HILLARY PA Unavailable Unavailable BRIDGETT, HILLARY PA Unavailable Unavailable BRIDGETT, HILLARY PA Unavailable Unavailable BRIDGETT, HILLARY PA Unavailable Unavailable BRIDGETT, HILLARY PA Unavailable Unavailable BRIDGETT, HILLARY PA Unavailable Unavailable BRIDGETT, HILLARY PA Unavailable Unavailable BRIDGETT, HILLARY PA Unavailable Unavailable BRIDGETT, HILLARY PA Unavailable Unavailable BRIDGETT, HILLARY PA Unavailable Unavailable BRIDGETT, HILLARY PA Unavailable Unavailable BRIDGETT, HILLARY PA Unavailable Unavailable BRIDGETT, HILLARY PA Unavailable Unavailable BRIDGETT, HILLARY PA Unavailable Unavailable BRIDGETT, HILLARY PA Unavailable Unavailable BRIDGETT, HILLARY PA Unavailable Unavailable BRIDGETT, HILLARY PA Unavailable Unavailable BRIDGETT, HILLARY PA Unavailable Unavailable BRIDGETT, HILLARY PA Unavailable Unavailable BRIDGETT, HILLARY PA Unavailable Unavailable BRIDGETT, HILLARY PA Unavailable Unavailable BRIDGETT, HILLARY PA Unavailable Unavailable BRIDGETT, HILLARY PA Unavailable Unavailable BRIDGETT, HILLARY PA Unavailable Unavailable NIMESH, L NATHALIA PA Unavailable Unavailable NIMESH, L NATHALIA PA Unavailable Unavailable NIMESH, L NATHALIA PA Unavailable Unavailable NIMESH, L NATHALIA PA Unavailable Unavailable NIMESH, L NATHALIA PA Unavailable Unavailable NIMESH, L NATHALIA PA Unavailable Unavailable NIMESH, L NATHALIA PA Unavailable Unavailable NIMESH, L NATHALIA PA Unavailable Unavailable NIMESH, L NATHALIA PA Unavailable Unavailable NIMESH, L NATHALIA PA Unavailable Unavailable NIMESH, L NATHALIA PA Unavailable Unavailable NIMESH, L NATHALIA PA Unavailable Unavailable NIMESH, L NATHALIA PA Unavailable Unavailable NIMESH, L NATHALIA PA Unavailable Unavailable NIMESH, L NATHALIA PA Unavailable Unavailable NIMESH, L NATHALIA PA Unavailable Unavailable Francisco Garcia, Teresa Zambrano MD, FACS Unavailable Unavailable Francisco Garcia, Teresa Zambrano MD, FACS Unavailable Unavailable Francisco Garcia, Teresa Zambrano MD, FACS Unavailable Unavailable Francisco Garcia, Teresa Zambrano MD, FACS Unavailable Unavailable Francisco Garcia, Teresa Zambrano MD, FACS Unavailable Unavailable Francisco Garcia, Teresa Zambrano MD, FACS Unavailable Unavailable Francisco Garcia, Teresa Zambrano MD, FACS Unavailable Unavailable Francisco Garcia, Teresa Zambrano MD, FACS Unavailable Unavailable Francisco Garcia, Teresa Zambrano MD, FACS Unavailable Unavailable Francisco Garcia, Teresa Zambrano MD, FACS Unavailable Unavailable Francisco Garcia, Teresa Zambrano MD, FACS Unavailable Unavailable Francisco Garcia, Teresa Zambrano MD, FACS Unavailable Unavailable Francisco Garcia, Teresa Zambrano MD, FACS Unavailable Unavailable Francisco Garcia, Teresa Zambrano MD, FACS Unavailable Unavailable Francisco Garcia, Teresa Zambrano MD, FACS Unavailable Unavailable Francisco Garcia, Teresa Zambrano MD, FACS Unavailable Unavailable Francisco Garcia, Teresa Zambrano MD, FACS Unavailable Unavailable Francisco Garcia, Teresa Zambrano MD, FACS Unavailable Unavailable Francisco Garcia, Treesa Zambrano MD, FACS Unavailable Unavailable Francisco Garcia, Teresa Zambrano MD, FACS Unavailable Unavailable Francisco Garcia, Teresa Zambrano MD, FACS Unavailable Unavailable Francisco Garcia, Teresa Zambrano MD, FACS Unavailable Unavailable Francisco Garcia, Teresa Zambrano MD, FACS Unavailable Unavailable Francisco Garcia, Teresa Zambrano MD, FACS Unavailable Unavailable Francisco Garcia, Teresa Zambrano MD, FACS Unavailable Unavailable Francisco Garcia, Teresa Zambrano MD, FACS Unavailable Unavailable Francisco Garcia, Teresa Zambrano MD, FACS Unavailable Unavailable Francisco Garcia, Teresa Zambrano MD, FACS Unavailable Unavailable Francisco Garcia, Teresa Zambrano MD, FACS Unavailable Unavailable Francisco Garcia, Teresa Zambrano MD, FACS Unavailable Unavailable Francisco Garcia, Teresa Zambrano MD, FACS Unavailable Unavailable Francisco Garcia, Teresa Zambrano MD, FACS Unavailable Unavailable Francisco Garcia, Teresa Zambrano MD, FACS Unavailable Unavailable Francisco Garcia, Teresa Zambrano MD, FACS Unavailable Unavailable Francisco Garcia, Teresa Zambrano MD, FACS Unavailable Unavailable Francisco Garcia, Teresa Zambrano MD, FACS Unavailable Unavailable Francisco Garcia, Teresa Zambrano MD, FACS Unavailable Unavailable Francisco Garcia, Teresa Zambrano MD, FACS Unavailable Unavailable Francisco Garcia, Teresa Zambrano MD, FACS Unavailable Unavailable Ted CLIFFORD MD Unavailable Unavailable VENESSA, Ted ALVARADO MD Unavailable Unavailable Ted CLIFFORD MD Unavailable Unavailable VENESSA, Ted ALVARADO MD Unavailable Unavailable Ted CLIFFORD MD Unavailable Unavailable Ted CLIFFORD MD Unavailable Unavailable Ted CLIFFORD MD Unavailable Unavailable Ted CLIFFORD MD Unavailable Unavailable Ted CLIFFORD MD Unavailable Unavailable Ted CLIFFORD MD Unavailable Unavailable Ted CLIFFORD MD Unavailable Unavailable Ted CLIFFORD MD Unavailable Unavailable Ted CLIFFORD MD Unavailable Unavailable Ted CLIFFORD MD Unavailable Unavailable Ted CLIFFORD MD Unavailable Unavailable Ted CLIFFORD MD Unavailable Unavailable Ted CLIFFORD MD Unavailable Unavailable Ted CLIFFORD MD Unavailable Unavailable Ted CLIFFORD MD Unavailable Unavailable Ted CLIFFORD MD Unavailable Unavailable Ted CLIFFORD MD Unavailable Unavailable eTd CLIFFORD MD Unavailable Unavailable Ted CLIFFORD MD Unavailable Unavailable Ted CLIFFORD MD Unavailable Unavailable Ted CLIFFORD MD Unavailable Unavailable Ted CLIFFORD MD Unavailable Unavailable Ted CLIFFORD MD Unavailable Unavailable Ted CLIFFORD MD Unavailable Unavailable Ted CLIFFORD MD Unavailable Unavailable Ted CLIFFORD MD Unavailable Unavailable Ted CLIFFORD MD Unavailable Unavailable Ted CLIFFORD MD Unavailable Unavailable Ted CLIFFORD MD Unavailable Unavailable Ted CLIFFORD MD Unavailable Unavailable Ted CLIFFORD MD Unavailable Unavailable Ted CLIFFORD MD Unavailable Unavailable Ted CLIFFORD MD Unavailable Unavailable Ted CLIFFORD MD Unavailable Unavailable Ted CLIFFORD MD Unavailable Unavailable Ted CLIFFORD MD Unavailable Unavailable Ted CLIFFORD MD Unavailable Unavailable Ted CLIFFORD MD Unavailable Unavailable Ted CLIFFORD MD Unavailable Unavailable Ted CLIFFORD MD Unavailable Unavailable Ted CLIFFORD MD Unavailable Unavailable Ted CLIFFORD MD Unavailable Unavailable Ted CLIFFORD MD Unavailable Unavailable Ted CLIFFORD MD Unavailable Unavailable Ted CLIFFORD MD Unavailable Unavailable Ted CLIFFORD MD Unavailable Unavailable Ted CLIFFORD MD Unavailable Unavailable Ted CLIFFORD MD Unavailable Unavailable Ted CLIFFORD MD Unavailable Unavailable Ted CLIFFORD MD Unavailable Unavailable Ted CLIFFORD MD Unavailable Unavailable Ted CLIFFORD MD Unavailable Unavailable Ted CLIFFORD MD Unavailable Unavailable Ted CLIFFORD MD Unavailable Unavailable Ted CLIFFORD MD Unavailable Unavailable CROGLIO, J CHRISTIANO MD Unavailable Unavailable CROGLIO, J CHRISTIANO MD Unavailable Unavailable CROGLIO, J CHRISTIANO MD Unavailable Unavailable CROGLIO, J CHRISTIANO MD Unavailable Unavailable CROGLIO, J CHRISTIANO MD Unavailable Unavailable CROGLIO, J CHRISTIANO MD Unavailable Unavailable CROGLIO, J CHRISTIANO MD Unavailable Unavailable CROGLIO, J CHRISTIANO MD Unavailable Unavailable CROGLIO, J CHRISTIANO MD Unavailable Unavailable CROGLIO, J CHRISTIANO MD Unavailable Unavailable CROGLIO, J CHRISTIANO MD Unavailable Unavailable CROGLIO, J CHRISTIANO MD Unavailable Unavailable CROGLIO, J CHRISTIANO MD Unavailable Unavailable CROGLIO, J CHRISTIANO MD Unavailable Unavailable CROGLIO, J CHRISTIANO MD Unavailable Unavailable CROGLIO, J CHRISTIANO MD Unavailable Unavailable CROGLIO, J CHRISTIANO MD Unavailable Unavailable CROGLIO, J CHRISTIANO MD Unavailable Unavailable CROGLIO, J CHRISTIANO MD Unavailable Unavailable CROGLIO, J CHRISTIANO MD Unavailable Unavailable CROGLIO, J CHRISTIANO MD Unavailable Unavailable CROGLIO, J CHRISTIANO MD Unavailable Unavailable CROGLIO, J CHRISTIANO MD Unavailable Unavailable CROGLIO, J CHRISTIANO MD Unavailable Unavailable CROGLIO, J CHRISTIANO MD Unavailable Unavailable CROGLIO, J CHRISTIANO MD Unavailable Unavailable CROGLIO, J CHRISTIANO MD Unavailable Unavailable CROGLIO, J CHRISTIANO MD Unavailable Unavailable CROGLIO, J CHRISTIANO MD Unavailable Unavailable CROGLIO, J CHRISTIANO MD Unavailable Unavailable CROGLIO, J CHRISTIANO MD Unavailable Unavailable CROGLIO, J CHRISTIANO MD Unavailable Unavailable CROGLIO, J CHRISTIANO MD Unavailable Unavailable CROGLIO, J CHRISTIANO MD Unavailable Unavailable CROGLIO, J CHRISTIANO MD Unavailable Unavailable Re-disclosure Warning The records that you are about to access may contain information from federally-assisted alcohol or drug abuse programs. If such information is present, then the following federally mandated warning applies: This information has been disclosed to you from records protected by federal confidentiality rules (42 CFR part 2). The federal rules prohibit you from making any further disclosure of this information unless further disclosure is expressly permitted by the written consent of the person to whom it pertains or as otherwise permitted by 42 CFR part 2. A general authorization for the release of medical or other information is NOT sufficient for this purpose. The Federal rules restrict any use of the information to criminally investigate or prosecute any alcohol or drug abuse patient.The records that you are about to access may contain highly sensitive health information, the redisclosure of which is protected by Article 27-F of the [facility] Public Health law. If you continue you may have access to information: Regarding HIV / AIDS; Provided by facilities licensed or operated by the [facility] Office of Mental Health; or Provided by the [facility] Office for People With Developmental Disabilities. If such information is present, then the following [facility] mandated warning applies: This information has been disclosed to you from confidential records which are protected by state law. State law prohibits you from making any further disclosure of this information without the specific written consent of the person to whom it pertains, or as otherwise permitted by law. Any unauthorized further disclosure in violation of state law may result in a fine or intermediate sentence or both. A general authorization for the release of medical or other information is NOT sufficient authorization for further disc losure. Family History Family Member Name Family Member Gender Family Member Status Date o f Status Description Data Source(s) Unknown Male Problem [facility] ([facility]) Encounters Encounter Providers Location Date Indications Data Source(s ) Unknown [address] [facility] [id number] 04/04/2021 12:00:00 AM EDT [facility]CW1 ([facility]) Unknown [address] [facility] [place] [address] 04/03/2021 12:00:00 AM EDT eCW1 ([facility]) Unknown [address] [facility] [place] [address] 04/03/2021 12:00:00 AM EDT eCW1 ([facility]) Unknown [address] [facility] [place] [address] 03/29/2021 12:00:00 AM EDT eCW1 ([facility]) Unknown [address] [facility] [place] [address] 03/29/2021 12:00:00 AM EDT eCW1 ([facility]) Unknown [address] [facility] [place] [address] 03/26/2021 12:00:00 AM EDT eCW1 ([facility]) Unknown [address] [facility] [place] [address] 03/26/2021 12:00:00 AM EDT eCW1 ([facility]) Unknown [address] [facility] [place] [address] 03/24/2021 12:00:00 AM EDT eCW1 ([facility]) Unknown [address] [facility] [place] [address] 03/23/2021 12:00:00 AM EDT eCW1 ([facility]) Unknown [address] [facility] [place] [address] 03/21/2021 12:00:00 AM EDT eCW1 ([facility]) Unknown [address] [facility] [place] [address] 03/21/2021 12:00:00 AM EDT eCW1 ([facility]) Unknown [address] [facility] [place] [address] 03/21/2021 12:00:00 AM EDT eCW1 ([facility]) Unknown [address] [facility] [place] [address] 03/21/2021 12:00:00 AM EDT eCW1 ([facility]) Unknown [address] [facility] [place] [address] 03/19/2021 12:00:00 AM EDT eCW1 ([facility]) ( [place]) [facility] [address] [place] [address] 03/19/2021 12:00:00 AM EDT eCW1 ([facility]) Unknown [address] [facility] [address] 03/19/2021 12:00:00 AM EDT eCW1 ([facility]) Outpatient Attender: HILLARY serna 03/01/2021 01:30:00 PM EDT [facility] ([facility]) Outpatient Attender: NATHALIA PERRY Main Office 02/15/2021 0 8:00:00 AM EDT [facility] ([facility]) Outpatient Attender: CHRISTIANO CLIFFORD MD [facility] [place] 02/01/2021 02:00:00 PM EDT [facility] ([facility]) Unknown [address] [facility] [address] 01/31/2021 12:00:00 AM EDT eCW1 ([facility]) Unknown [address] [facility] [place] [address] 01/31/2021 12:00:00 AM EDT eCW1 ([facility]) <td ID="encounterTypeDescriptionID0">1 Y ear Follow-Up</td><td>Juan Manuel Garcia MD, FACS</td><td>Juan Manuel Quintana MD [facility]</td><td>12/05/2020</td><td>12:51PM</td><td>02/12/2019 11:59PM</td><td> <content ID="encounterDiagnosisID0-0">Essential Hypertension</content>, <content ID="encounterDiagnosisID0-1">Drusen</content>, <content ID="encounterDiagnosisID0-2">Cataract Senile Cortical</content>, <content ID="encounterDiagnosisID0-3">Cataract Senile Nuclear</content>, <content ID="encounterDiagnosisID0-4">Dry Eye Syndrome</content></td>Outpatient Attender: Juan Manuel Garcia MD, FACS Juan Manuel Quintana MD [facility] 12/05/2020 12:51:00 PM EDT - 02/12/2019 11:59:00 PM EDT Dry Eye SyndromeDrusenCataract Senile Nu clearCataract Senile CorticalEssential Hypertension [place] (Juan Manuel Garcia MD [facility]) Dry Eye Syndrome 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 Essential Hypertension Outpatient Attender: ARIS OROZCO MD Main Office 11/27/2020 10:15:00 AM EDT MEDENT ([facility]) ([place]NN) [facility] [employer] Exam [address] [place] [address] 11/15/2020 12:00:00 AM EDT eCW1 ([facility]) Outpatient Attender: CHRISTIANO CLIFFORD MD [facility] [place] 11/14/2020 11:30:00 AM EDT MED[facility] ([facility]) Outpatient Attender: CHRISTIANO CLIFFORD MD [facility] [place] 03/28/2020 03:00:00 PM EDT [facility] ([facility]) Immunizations Vaccine Date Status Description Data Source(s) Covid-19 vaccine, 30mcg/0.3mL 10/04/2020 11:31:00 AM EDT completed MEDENT ([facility]) Covid-19 vaccine, 30mcg/0.3mL 09/03/2020 11:31:00 AM EDT completed MEDENT ([facility]) Influenza, injectable, MDCK, preservative free, tiana valent 03/28/2020 03:54:00 PM EDT completed [facility] ([facility]) Medications Medication Brand Name Start Date Product Form Dose Route Admi nistrative Instructions Pharmacy Instructions Status Indications Reaction Description Data Source(s) Fluconazole 100 MG Oral Tablet [Diflucan] Diflucan 100 MG Di flucan 100 MG 03/29/2021 12:00:00 AM EDT 1.0 {tablet} active Diflucan 100 MG eCW1 ([facility]) Fluconazole 100 MG Oral Tablet [Diflucan] Diflucan 100 MG Di flucan 100 MG 03/29/2021 12:00:00 AM EDT 1.0 {tablet} active Diflucan 100 MG eCW1 ([facility]) Fluconazole 100 MG Oral Tablet [Diflucan] Diflucan 100 MG Di flucan 100 MG 03/29/2021 12:00:00 AM EDT 1.0 {tablet} active Diflucan 100 MG eCW1 ([facility]) Fluconazole 100 MG Oral Tablet [Diflucan] Diflucan 100 MG Di flucan 100 MG 03/29/2021 12:00:00 AM EDT 1.0 {tablet} active Diflucan 100 MG eCW1 ([facility]) Fluconazole 100 MG Oral Tablet [Diflucan] Diflucan 100 MG Di flucan 100 MG 03/29/2021 12:00:00 AM EDT 1.0 {tablet} active Diflucan 100 MG eCW1 ([facility]) NITROFURANTOIN, MACROCRYSTALS 25 MG / Ni trofurantoin, Monohydrate 75 MG Oral Capsule [Macrobid] Macrobid 100 MG Macrobid 100 MG 03/27/2021 12:00:00 AM EDT 1.0 {capsule} active Macrobid 100 MG eC W1 ([facility]) NITROFURANTOIN, MACROCRYSTALS 25 MG / Ni trofurantoin, Monohydrate 75 MG Oral Capsule [Macrobid] Macrobid 100 MG Macrobid 100 MG 03/27/2021 12:00:00 AM EDT 1.0 {capsule} active Macrobid 100 MG eC W1 ([facility]) NITROFURANTOIN, MACROCRYSTALS 25 MG / Ni trofurantoin, Monohydrate 75 MG Oral Capsule [Macrobid] Macrobid 100 MG Macrobid 100 MG 03/27/2021 12:00:00 AM EDT 1.0 {capsule} active Macrobid 100 MG eC W1 ([facility]) NITROFURANTOIN, MACROCRYSTALS 25 MG / Ni trofurantoin, Monohydrate 75 MG Oral Capsule [Macrobid] Macrobid 100 MG Macrobid 100 MG 03/27/2021 12:00:00 AM EDT 1.0 {capsule} active Macrobid 100 MG eC W1 ([facility]) NITROFURANTOIN, MACROCRYSTALS 25 MG / Ni trofurantoin, Monohydrate 75 MG Oral Capsule [Macrobid] Macrobid 100 MG Macrobid 100 MG 03/27/2021 12:00:00 AM EDT 1.0 {capsule} active Macrobid 100 MG eC W1 ([facility]) NITROFURANTOIN, MACROCRYSTALS 25 MG / Ni trofurantoin, Monohydrate 75 MG Oral Capsule [Macrobid] Macrobid 100 MG Macrobid 100 MG 03/27/2021 12:00:00 AM EDT 1.0 {capsule} active Macrobid 100 MG eC W1 ([facility]) NITROFURANTOIN, MACROCRYSTALS 25 MG / Ni trofurantoin, Monohydrate 75 MG Oral Capsule [Macrobid] Macrobid 100 MG Macrobid 100 MG 03/27/2021 12:00:00 AM EDT 1.0 {capsule} active Macrobid 100 MG eC W1 ([facility]) Cephalexin 500 MG Oral Capsule Cephalexin 500 MG 03/26/2021 12:00:0 0 AM EDT 1.0 {capsule} active Cephalexin 500 MG eCW1 ([facility]) Cephalexin 500 MG Oral Capsule Cephalexin 500 MG 03/26/2021 12:00:0 0 AM EDT 1.0 {capsule} active Cephalexin 500 MG eCW1 ([facility]) Cephalexin 500 MG Oral Capsule Cephalexin 500 MG 03/26/2021 12:00:0 0 AM EDT 1.0 {capsule} active Cephalexin 500 MG eCW1 ([facility]) Cephalexin 500 MG Oral Capsule Cephalexin 500 MG 03/26/2021 12:00:0 0 AM EDT 1.0 {capsule} active Cephalexin 500 MG eCW1 ([facility]) Cephalexin 500 MG Oral Capsule Cephalexin 500 MG 03/26/2021 12:00:0 0 AM EDT 1.0 {capsule} active Cephalexin 500 MG eCW1 ([facility]) Cephalexin 500 MG Oral Capsule Cephalexin 500 MG 03/26/2021 12:00:0 0 AM EDT 1.0 {capsule} active Cephalexin 500 MG eCW1 ([facility]) Cephalexin 500 MG Oral Capsule Cephalexin 500 MG 03/26/2021 12:00:0 0 AM EDT 1.0 {capsule} active Cephalexin 500 MG eCW1 ([facility]) Cephalexin 500 MG Oral Capsule Cephalexin 500 MG 03/26/2021 12:00:0 0 AM EDT 1.0 {capsule} active Cephalexin 500 MG eCW1 ([facility]) Cephalexin 500 MG Oral Capsule Cephalexin 500 MG 03/26/2021 12:00:0 0 AM EDT 1.0 {capsule} active Cephalexin 500 MG eCW1 ([facility]) NITROFURANTOIN, MACROCRYSTALS 25 MG / Ni trofurantoin, Monohydrate 75 MG Oral Capsule [Macrobid] Macrobid 100 MG Macrobid 100 MG 03/21/2021 12:00:00 AM EDT 1.0 {capsule} active Macrobid 100 MG eC W1 ([facility]) NITROFURANTOIN, MACROCRYSTALS 25 MG / Ni trofurantoin, Monohydrate 75 MG Oral Capsule [Macrobid] Macrobid 100 MG Macrobid 100 MG 03/21/2021 12:00:00 AM EDT 1.0 {capsule} active Macrobid 100 MG eC W1 ([facility]) NITROFURANTOIN, MACROCRYSTALS 25 MG / Ni trofurantoin, Monohydrate 75 MG Oral Capsule [Macrobid] Macrobid 100 MG Macrobid 100 MG 03/21/2021 12:00:00 AM EDT 1.0 {capsule} active Macrobid 100 MG eC W1 ([facility]) NITROFURANTOIN, MACROCRYSTALS 25 MG / Ni trofurantoin, Monohydrate 75 MG Oral Capsule [Macrobid] Macrobid 100 MG Macrobid 100 MG 03/21/2021 12:00:00 AM EDT 1.0 {capsule} active Macrobid 100 MG eC W1 ([facility]) NITROFURANTOIN, MACROCRYSTALS 25 MG / Ni trofurantoin, Monohydrate 75 MG Oral Capsule [Macrobid] Macrobid 100 MG Macrobid 100 MG 03/21/2021 12:00:00 AM EDT 1.0 {capsule} active Macrobid 100 MG eC W1 ([facility]) NITROFURANTOIN, MACROCRYSTALS 25 MG / Ni trofurantoin, Monohydrate 75 MG Oral Capsule [Macrobid] Macrobid 100 MG Macrobid 100 MG 03/21/2021 12:00:00 AM EDT 1.0 {capsule} active Macrobid 100 MG eC W1 ([facility]) NITROFURANTOIN, MACROCRYSTALS 25 MG / Ni trofurantoin, Monohydrate 75 MG Oral Capsule [Macrobid] Macrobid 100 MG Macrobid 100 MG 03/21/2021 12:00:00 AM EDT 1.0 {capsule} active Macrobid 100 MG eC W1 ([facility]) NITROFURANTOIN, MACROCRYSTALS 25 MG / Ni trofurantoin, Monohydrate 75 MG Oral Capsule [Macrobid] Macrobid 100 MG Macrobid 100 MG 03/21/2021 12:00:00 AM EDT 1.0 {capsule} active Macrobid 100 MG eC W1 ([facility]) NITROFURANTOIN, MACROCRYSTALS 25 MG / Ni trofurantoin, Monohydrate 75 MG Oral Capsule [Macrobid] Macrobid 100 MG Macrobid 100 MG 03/21/2021 12:00:00 AM EDT 1.0 {capsule} active Macrobid 100 MG eC W1 ([facility]) NITROFURANTOIN, MACROCRYSTALS 25 MG / Ni trofurantoin, Monohydrate 75 MG Oral Capsule [Macrobid] Macrobid 100 MG Macrobid 100 MG 03/21/2021 12:00:00 AM EDT 1.0 {capsule} active Macrobid 100 MG eC W1 ([facility]) NITROFURANTOIN, MACROCRYSTALS 25 MG / Ni trofurantoin, Monohydrate 75 MG Oral Capsule [Macrobid] Macrobid 100 MG Macrobid 100 MG 03/21/2021 12:00:00 AM EDT 1.0 {capsule} active Macrobid 100 MG eC W1 ([facility]) NITROFURANTOIN, MACROCRYSTALS 25 MG / Ni trofurantoin, Monohydrate 75 MG Oral Capsule [Macrobid] Macrobid 100 MG Macrobid 100 MG 03/21/2021 12:00:00 AM EDT 1.0 {capsule} active Macrobid 100 MG eC W1 ([facility]) NITROFURANTOIN, MACROCRYSTALS 25 MG / Ni trofurantoin, Monohydrate 75 MG Oral Capsule [Macrobid] Macrobid 100 MG Macrobid 100 MG 03/21/2021 12:00:00 AM EDT 1.0 {capsule} active Macrobid 100 MG eC W1 ([facility]) NITROFURANTOIN, MACROCRYSTALS 25 MG / Ni trofurantoin, Monohydrate 75 MG Oral Capsule [Macrobid] Macrobid 100 MG Macrobid 100 MG 03/21/2021 12:00:00 AM EDT 1.0 {capsule} active Macrobid 100 MG eC W1 ([facility]) NITROFURANTOIN, MACROCRYSTALS 25 MG / Ni trofurantoin, Monohydrate 75 MG Oral Capsule [Macrobid] Macrobid 100 MG Macrobid 100 MG 03/21/2021 12:00:00 AM EDT 1.0 {capsule} active Macrobid 100 MG eC W1 ([facility]) NITROFURANTOIN, MACROCRYSTALS 25 MG / Ni trofurantoin, Monohydrate 75 MG Oral Capsule [Macrobid] Macrobid 100 MG Macrobid 100 MG 03/19/2021 12:00:00 AM EDT 1.0 {capsule} active Macrobid 100 MG eC W1 ([facility]) NITROFURANTOIN, MACROCRYSTALS 25 MG / Ni trofurantoin, Monohydrate 75 MG Oral Capsule [Macrobid] Macrobid 100 MG Macrobid 100 MG 03/19/2021 12:00:00 AM EDT 1.0 {capsule} active Macrobid 100 MG eC W1 ([facility]) NITROFURANTOIN, MACROCRYSTALS 25 MG / Ni trofurantoin, Monohydrate 75 MG Oral Capsule [Macrobid] Macrobid 100 MG Macrobid 100 MG 03/19/2021 12:00:00 AM EDT 1.0 {capsule} active Macrobid 100 MG eC W1 ([facility]) Fluconazole 150 MG Oral Tablet [Diflucan] Diflucan 150 MG Di flucan 150 MG 03/19/2021 12:00:00 AM EDT 1.0 {tablet} active Diflucan 150 MG eCW1 ([facility]) Fluconazole 150 MG Oral Tablet [Diflucan] Diflucan 150 MG Di flucan 150 MG 03/19/2021 12:00:00 AM EDT 1.0 {tablet} active Diflucan 150 MG eCW1 ([facility]) Fluconazole 150 MG Oral Tablet [Diflucan] Diflucan 150 MG Di flucan 150 MG 03/19/2021 12:00:00 AM EDT 1.0 {tablet} active Diflucan 150 MG eCW1 ([facility]) NITROFURANTOIN, MACROCRYSTALS 25 MG / Ni trofurantoin, Monohydrate 75 MG Oral Capsule [Macrobid] Macrobid 100 MG Macrobid 100 MG 03/19/2021 12:00:00 AM EDT 1.0 {capsule} active Macrobid 100 MG eC W1 ([facility]) NITROFURANTOIN, MACROCRYSTALS 25 MG / Ni trofurantoin, Monohydrate 75 MG Oral Capsule [Macrobid] Macrobid 100 MG Macrobid 100 MG 03/19/2021 12:00:00 AM EDT 1.0 {capsule} active Macrobid 100 MG eC W1 ([facility]) NITROFURANTOIN, MACROCRYSTALS 25 MG / Ni trofurantoin, Monohydrate 75 MG Oral Capsule [Macrobid] Macrobid 100 MG Macrobid 100 MG 03/19/2021 12:00:00 AM EDT 1.0 {capsule} active Macrobid 100 MG eC W1 ([facility]) NITROFURANTOIN, MACROCRYSTALS 25 MG / Ni trofurantoin, Monohydrate 75 MG Oral Capsule [Macrobid] Macrobid 100 MG Macrobid 100 MG 03/19/2021 12:00:00 AM EDT 1.0 {capsule} active Macrobid 100 MG eC W1 ([facility]) Fluconazole 150 MG Oral Tablet [Diflucan] Diflucan 150 MG Di flucan 150 MG 03/19/2021 12:00:00 AM EDT 1.0 {tablet} active Diflucan 150 MG eCW1 ([facility]) Fluconazole 150 MG Oral Tablet [Diflucan] Diflucan 150 MG Di flucan 150 MG 03/19/2021 12:00:00 AM EDT 1.0 {tablet} active Diflucan 150 MG eCW1 ([facility]) NITROFURANTOIN, MACROCRYSTALS 25 MG / Ni trofurantoin, Monohydrate 75 MG Oral Capsule [Macrobid] Macrobid 100 MG Macrobid 100 MG 03/19/2021 12:00:00 AM EDT 1.0 {capsule} active Macrobid 100 MG eC W1 ([facility]) NITROFURANTOIN, MACROCRYSTALS 25 MG / Ni trofurantoin, Monohydrate 75 MG Oral Capsule [Macrobid] Macrobid 100 MG Macrobid 100 MG 03/19/2021 12:00:00 AM EDT 1.0 {capsule} active Macrobid 100 MG eC W1 ([facility]) Fluconazole 150 MG Oral Tablet [Diflucan] Diflucan 150 MG Di flucan 150 MG 03/19/2021 12:00:00 AM EDT 1.0 {tablet} active Diflucan 150 MG eCW1 ([facility]) Fluconazole 150 MG Oral Tablet [Diflucan] Diflucan 150 MG Di flucan 150 MG 03/19/2021 12:00:00 AM EDT 1.0 {tablet} active Diflucan 150 MG eCW1 ([facility]) NITROFURANTOIN, MACROCRYSTALS 25 MG / Ni trofurantoin, Monohydrate 75 MG Oral Capsule [Macrobid] Macrobid 100 MG Macrobid 100 MG 03/19/2021 12:00:00 AM EDT 1.0 {capsule} active Macrobid 100 MG eC W1 ([facility]) NITROFURANTOIN, MACROCRYSTALS 25 MG / Ni trofurantoin, Monohydrate 75 MG Oral Capsule [Macrobid] Macrobid 100 MG Macrobid 100 MG 03/19/2021 12:00:00 AM EDT 1.0 {capsule} active Macrobid 100 MG eC W1 ([facility]) NITROFURANTOIN, MACROCRYSTALS 25 MG / Ni trofurantoin, Monohydrate 75 MG Oral Capsule [Macrobid] Macrobid 100 MG Macrobid 100 MG 03/19/2021 12:00:00 AM EDT 1.0 {capsule} active Macrobid 100 MG eC W1 ([facility]) NITROFURANTOIN, MACROCRYSTALS 25 MG / Ni trofurantoin, Monohydrate 75 MG Oral Capsule [Macrobid] Macrobid 100 MG Macrobid 100 MG 03/19/2021 12:00:00 AM EDT 1.0 {capsule} active Macrobid 100 MG eC W1 ([facility]) NITROFURANTOIN, MACROCRYSTALS 25 MG / Ni trofurantoin, Monohydrate 75 MG Oral Capsule [Macrobid] Macrobid 100 MG Macrobid 100 MG 03/19/2021 12:00:00 AM EDT 1.0 {capsule} active Macrobid 100 MG eC W1 ([facility]) Fluconazole 150 MG Oral Tablet [Diflucan] Diflucan 150 MG Di flucan 150 MG 03/19/2021 12:00:00 AM EDT 1.0 {tablet} active Diflucan 150 MG eCW1 ([facility]) Fluconazole 150 MG Oral Tablet [Diflucan] Diflucan 150 MG Di flucan 150 MG 03/19/2021 12:00:00 AM EDT 1.0 {tablet} active Diflucan 150 MG eCW1 ([facility]) Fluconazole 150 MG Oral Tablet [Diflucan] Diflucan 150 MG Di flucan 150 MG 03/19/2021 12:00:00 AM EDT 1.0 {tablet} active Diflucan 150 MG eCW1 ([facility]) Fluconazole 150 MG Oral Tablet [Diflucan] Diflucan 150 MG Di flucan 150 MG 03/19/2021 12:00:00 AM EDT 1.0 {tablet} active Diflucan 150 MG eCW1 ([facility]) Fluconazole 150 MG Oral Tablet [Diflucan] Diflucan 150 MG Di flucan 150 MG 03/19/2021 12:00:00 AM EDT 1.0 {tablet} active Diflucan 150 MG eCW1 ([facility]) Fluconazole 150 MG Oral Tablet [Diflucan] Diflucan 150 MG Di flucan 150 MG 03/19/2021 12:00:00 AM EDT 1.0 {tablet} active Diflucan 150 MG eCW1 ([facility]) Fluconazole 150 MG Oral Tablet [Diflucan] Diflucan 150 MG Di flucan 150 MG 03/19/2021 12:00:00 AM EDT 1.0 {tablet} active Diflucan 150 MG eCW1 ([facility]) NITROFURANTOIN, MACROCRYSTALS 25 MG / Ni trofurantoin, Monohydrate 75 MG Oral Capsule [Macrobid] Macrobid 100 MG Macrobid 100 MG 03/19/2021 12:00:00 AM EDT 1.0 {capsule} active Macrobid 100 MG eC W1 ([facility]) NITROFURANTOIN, MACROCRYSTALS 25 MG / Ni trofurantoin, Monohydrate 75 MG Oral Capsule [Macrobid] Macrobid 100 MG Macrobid 100 MG 03/19/2021 12:00:00 AM EDT 1.0 {capsule} active Macrobid 100 MG eC W1 ([facility]) Fluconazole 150 MG Oral Tablet [Diflucan] Diflucan 150 MG Di flucan 150 MG 03/19/2021 12:00:00 AM EDT 1.0 {tablet} active Diflucan 150 MG eCW1 ([facility]) Fluconazole 150 MG Oral Tablet [Diflucan] Diflucan 150 MG Di flucan 150 MG 03/19/2021 12:00:00 AM EDT 1.0 {tablet} active Diflucan 150 MG eCW1 ([facility]) benzonatate 100 MG Oral Capsule Benzonatate 03/01/2021 12:00:00 AM EDT ORAL active MEDENT ([facility]) Amoxicillin 875 MG / Clavulanate 125 MG Oral Tablet Am oxicillin/Clavulanate Potassium 03/01/2021 12:00:00 AM EDT ORAL active MEDENT ([facility]) Fluconazole 150 MG Oral Tablet [Diflucan] Diflucan 03/01/2021 1 2:00:00 AM EDT ORAL active MEDENT ([facility]) Turmeric Curcumin 02/14/2021 12:00:00 AM EDT ORAL active MEDENT ([facility]) 24 HR metoprolol succinate 100 MG Extended Release Ora l Tablet Metoprolol Succinate ER 02/14/2021 12:00:00 AM EDT ORAL active MEDENT ([facility]) Chlorthalidone 25 MG Oral Tablet Chlorthalidone 11/27/2020 12:00:00 A M EDT ORAL active [facility] Spironolactone 25 MG Oral Tablet Spironolactone 11/27/2020 12:00:00 A M EDT ORAL active [facility] Administer Influenza Virus Vaccine 03/28/2020 12:00:00 AM EDT completed [facility]) Medication administered onsite Hyoscyamine Sulfate 0.125 MG Sublingual Tablet Hyoscyamine S ulfate SL 03/28/2020 12:00:00 AM EDT active MEDENT ([facility]) Dexamethasone 1 MG/ML / Tobramycin 3 MG/ ML Ophthalmic Suspension [Tobradex] TobraDex 0.3-0.1% Ophthalmic Suspension TobraDex 0.3-0.1% Ophthalmic Suspension 10/20/2018 12:00:00 AM EDT aborted dexamethasone 1 MG/ML / tobramycin 3 MG/ML Ophthalmic Suspension [Tobradex] KYLAH (Juan Manuel Garcia MD [facility]) Insurance Providers Payer name Policy type / Coverage type Policy ID Covered green party ID Covered green party's relationship to jaramillo Policy Jaramillo Plan Information BCBS [facility] Part B [id number] Family Dependent [id number] BCBS [facility] Health Maintenance Organization (HMO) R [id number] Family Dependent R [id number] [employer] [place] [facility] Part B [id number] Family Dependent [id number] EXCELLUS H [id number] Spouse [id number] [place] Primary [id number] Self 06 [id number] Medicare [place] Medicare Primary [id number] Self 06 [id number] MEDICARE A [id number] Self [id number] Medicare Part B Medicare Primary [id number] Self 06 [id number] Medicare [place] Medicare Primary [id number] Self [id number] Medicare Part B Medicare Primary [id number] Self [id number] Medicare (Part B) Medicare Primary [id number] Self [id number] BCBS Federal Medigap Part B [id number] Family Dependent [id number] Medicare (Part B) Medicare Primary [id number] Self [id number] [employer] [employer] Med[employer] Part B [id number] Self [id number] BC BS [facility] FEDERAL B [id number] P [id number] MEDICARE C [id number] S [id number] [employer] [place] [employer] Med[employer] Part B [id number] Self [id number] [employer] [place] [employer] Part B [id number] Self [id number] Medicare [place] Primary [id number] Self [id number] Medicare [place] Medicare Primary [id number] Self [id number] Medicare [place] Medicare Primary [id number] Self 06 [id number] EXCELLUS [facility] FEDERAL [id number] HU2 [id number] MEDICARE - [facility] [id number] S [id number] [facility] [id number] [id number] MEDICARE [id number] SP [id number] [id number] [facility] [employer] EMPLOYEE PROGRAM [id number] [facility] [employer] PRO[employer] [id number] HU2 [id number] [facility] Other 0 [id number] F amily Dependent Hipolito Shabazz 0 Medicare Part B [facility] Other 0 [id number] Self 0 MEDICARE [id number] SP [id number] A [facility] Federal Medigap Part B [id number] Family Dependent [id number] Medicare (Part B) Medicare Primary [id number] Self [id number] [employer] Medigap Part B [id number] Self [id number] [facility] Medigap Part B [id number] Family Dependent [id number] Problems, Conditions, and Diagnoses Code Display Name Description Problem Type Effective Dates Data Source(s) 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 Disturbance in sleep beh avior Problem 02/15/2021 12:00:00 AM EDT MEDENT ([facility]) N95.9 Menopausal problem Menopausal problem Problem 12:00:00 AM EDT eCW1 ([facility]) I27.20 Pulmonary hypertension Pulmonary hypertension Problem 11/27/2020 12:00:00 AM EDT MEDENT ([facility]) Surgeries/Procedures Procedure Description Date Indications Data Source(s) OFFICE OUTPATIENT VISIT 25 MINUTES 03/01/2021 12:00:00 AM EDT MEDENT ([facility]) OFFICE OUTPATIENT VISIT 25 MINUTES 02/15/2021 12:00:00 AM EDT MEDENT ([facility]) OFFICE OUTPATIENT VISIT 25 MINUTES 02/01/2021 12:00:00 AM EDT MEDENT ([facility]) XTRNL ECG < 48 HR RECORDING 01/30/2021 12:00:00 AM EDT MEDENT ([facility]) XTRNL ECG CONTINUOUS RHYTHM PHYS REVIEW&INTERPJ 2020 12:00:00 AM EDT MEDENT ([facility]) ECHO TTHRC R-T 2D W/WOM-MODE COMPL SPEC&COLR DOP 12/12 12:00:00 AM EDT [facility] Intermediate Eye Exam Established Patient Intermediate Eye Exam Established Patient 12/05/2020 12:00:00 AM EDT KYLAH (Christopher Garcia MD [facility]) ECG ROUTINE ECG W/LEAST 12 LDS W/I&R 11/27/2020 12:00: 00 AM EDT [facility] OFFICE OUTPATIENT VISIT 25 MINUTES 11/27/2020 12:00:00 AM EDT MEDENT ([facility]) OFFICE OUTPATIENT VISIT 25 MINUTES 11/14/2020 12:00:00 AM EDT [facility] Results ID Date Data Source URINE CULTURE 03/19/2021 12:00:00 AM EDT eCW1 ([facility]) Name Value Range Interpretation Code Description Data Vianey rce(s) Supporting Document(s) URINE CULTURE eCW1 ([facility]) ID Date Data Source UA URINALYSIS 03/19/2021 12:00:00 AM EDT eCW1 ([facility]) Name Value Range Interpretation Code Description Data Vianey rce(s) Supporting Document(s) UA URINALYSIS eCW1 ([facility]) ID Date Data Source Urinalysis, Complete with Micro 03/19/2021 12:00:00 AM EDT e CW1 ([facility]) Name Value Range Interpretation Code Description Data Vianey rce(s) Supporting Document(s) Microscopic Examination eCW1 ( [facility]) Color of Urine red Urine-Color eCW1 ([facility]) Specific gravity of Urine 1.010 Specific G ravity eCW1 ([facility]) pH of Urine by Test strip 7 pH eCW1 ([facility]) Glucose [Presence] in Urine negative Glucose eCW1 ([facility]) Appearance of Urine clear with clot Appearance eCW1 ([facility]) Urobilinogen [Mass/volume] in Urine by Test strip 1+ Urobilinogen,Semi-Qn eCW1 ([facility]) Hemoglobin [Presence] in Urine by Test strip 3+ Occult Blood eCW1 ([facility]) Protein [Presence] in Urine by Test strip 2+ Protein eCW1 ([facility]) Bilirubin.total [Presence] in Urine by Test strip 2+ Bilirubin eCW1 ([facility]) Ketones [Presence] in Urine by Test strip small Ketones eCW1 ([facility]) Nitrite [Presence] in Urine by Test strip positive Nitrite, Urine eCW1 ([facility]) Leukocyte esterase [Presence] in Urine by Test strip 2+ WBC Esterase eCW1 ([facility]) Urinalysis Gross Exam eCW1 ([facility]) ID Date Data Source [id number] 03/01/2021 12:00:00 AM EDT [facility] Name Value Range Interpretation Code Description Data Vianey rce(s) Supporting Document(s) SARS-CoV2 Rapid Antigen Negative [facility] This lab was reported by [facility]. ID Date Data Source [id number] 02/01/2021 02:43:00 PM EDT MEDENT ([facility]) Name Value Range Interpretation Code Description Data Vianey rce(s) Supporting Document(s) Vitamin D+Metabolites [Mass/volume] in Serum or Plasma 69.13 ng/mL 30 -100 MEDENT ([facility]) <content>Recommended Levels for Circulat ing 25-hydroxy Vitamin D:</content>
<content>Vitamin D Status 25-OH Vitamin D Test Result</content>
<content>Deficient <10ng/mL</content>
<content>Insufficient 10- 29ng/mL</content>
<content>Sufficient 30-100ng/mL</content>
<content>Potential Intoxication >100ng/mL</content>
<content>A pediatric reference range has not been established using this method.</content>
<content></content> Venipuncture Laboratory test result MEDE NT ([facility]) fasting ID Date Data Source [id number] 02/01/2021 02:43:00 PM EDT MEDENT ([facility]) Name Value Range Interpretation Code Description Data Vianey rce(s) Supporting Document(s) Clarity of Urine Laboratory test result 0-0 MEDENT ([facility]) Color of Urine Laboratory test result ME DENT ([facility]) pH of Urine by Test strip 5.5 4.6-8.0 MEDE NT ([facility]) Specific gravity of Urine 1.015 1.005-1.030 MEDENT ([facility]) Glucose [Mass/volume] in Urine Laboratory test result 0-0 MEDENT ([facility]) Ketones [Presence] in Serum or Plasma Laboratory test result 0-0 MEDENT ([facility]) Protein [Presence] in Urine by Test strip Laboratory test result 0-0 MEDENT ([facility]) bilirubin. Laboratory test result 0-0 MEDENT ([facility]) Blood. Laboratory test result 0-0 MEDENT ([facility]) Nitrite [Moles/volume] in Serum or Plasma Laboratory test result 0-0 MEDENT ([facility]) Erythrocytes [#/area] in Urine sediment by Microscopy high power field Laboratory test result 0-2 [facility] ([facility]) Leukocytes. Laboratory test result 0-0 MEDEN T ([facility]) Leukocytes [#/area] in Urine sediment by Microscopy nd gh power field Laboratory test result 0-5 [facility] ([facility]) Epithelial cells [Presence] in Urine sediment by Light microscopy Laboratory test result 0-10 [facility] ([facility]) Bacteria. Laboratory test result 0-0 MEDENT ([facility]) ID Date Data Source [id number] 02/01/2021 02:43:00 PM EDT MEDENT ([facility]) Name Value Range Interpretation Code Description Data Vianey rce(s) Supporting Document(s) Thyrotropin [Units/volume] in Serum or Plasma 2.050 mIU/ml 0.350-5.50 0 MEDENT ([facility]) fasting Thyroxine (T4) free [Mass/volume] in Serum or Plasma 0.98 ng/dL 0.89- 1.80 MEDENT ([facility]) fasting ID Date Data Source [id number] 02/01/2021 02:43:00 PM EDT MEDENT ([facility]) Name Value Range Interpretation Code Description Data Vianey rce(s) Supporting Document(s) Cholesterol [Mass/volume] in Serum or Plasma 239 mg/dL 0-200 Above high normal MEDENT ([facility]) Triglyceride [Mass/volume] in Serum or Plasma 121 mg/dL 0-249 MEDENT ([facility]) <content>National Cholesterol Education Program (NCEP) Guidelines:</content>
<content>Recommended Range <150 mg/dL</content>
<content></content> Cholesterol in HDL [Mass/volume] in Serum or Plasma 89 mg/dL 40-60 Above high normal MEDENT ([facility]) Cholesterol in LDL [Mass/volume] in Serum or Plasma by calcu lation 126 mg/dL 0-130 MED[facility] ([facility]) VLDL 24 mg/dL 0-28 [facility] ([facility]) Cardiac Risk 2.69 Ratio 3.7-5.3 Below low normal MEDENT ([facility]) ID Date Data Source [id number] 02/01/2021 02:43:00 PM EDT MEDENT ([facility]) Name Value Range Interpretation Code Description Data Vianey rce(s) Supporting Document(s) Erythrocytes [#/volume] in Blood by Automated count 4.14 x10E6/uL 3.9 -5.4 MEDENT ([facility]) WBC. 5.32 x10E3/uL 4.2-12.0 [facility] ([facility]) Hemoglobin [Mass/volume] in Blood 13.5 g/dL 12.0-16.0 MEDENT ([facility]) Hematocrit [Volume Fraction] of Blood by Automated count 41.2 % 3 6-47 MED[facility] ([facility]) MCHC 32.7 g/dL 32-36 [facility] ([facility] MCV 99.6 fL 80-98 Above high normal [facility] ([facility]) MCH 32.5 pg 27-33 [facility] ([facility]) Platelets [#/volume] in Blood by Automated count 287 x10E3/uL 135-420 MED[facility] ([facility]) RDW 13.6 % 11.2-15.2 [facility] ([facility]) %Lym 32.1 % 10.0-45.2 [facility] ([facility]) % Charles 54.7 % 41.0-80.0 [facility] ([facility]) MPV 7.9 fL 7.0-12.3 [facility] ([facility]) Eosinophils [#/volume] in Blood by Automated count 6.7 % 0.0-8.0 MED[facility] ([facility]) %Roane 6.2 % 2.0-13.0 [facility] ([facility]) %Baso 0.2 % 0.0-3.0 [facility] ([facility]) Roane 0.3 x10E3/uL 0.0-1.0 [facility] ([facility]) Neut 2.9 x10E3/uL 2.0-8.1 [facility] ([facility]) Lymp 1.7 x10E3/uL 0.6-3.1 [facility] ([facility]) Eos 0.4 x10E3/uL 0.0-0.6 [facility] ([facility]) Baso 0.0 x10E3/uL 0.0-0.2 [facility] ([facility]) ID Date Data Source [id number] 02/01/2021 02:43:00 PM EDT [facility] ([facility]) Name Value Range Interpretation Code Description Data Vianey rce(s) Supporting Document(s) Glucose [Mass/volume] in Serum or Plasma 89 mg/dL 74-106 MEDENT ([facility]) [place] Diabetes Association (ADA) Recommended Range is 65-99 mg/dL Creatinine [Mass/volume] in Serum or Plasma 0.9 mg/dL 0.5-1.3 MED[facility] ([facility]) Urea nitrogen [Moles/volume] in Serum or Plasma 23 mg/dL 6-20 Above high normal MED[facility] ([facility]) Sodium [Moles/volume] in Serum or Plasma 139 mmol/L 136-145 MED[facility] ([facility]) Potassium [Moles/volume] in Serum or Plasma 4.5 mmol/L 3.5-5.3 [facility] ([facility]) Chloride [Moles/volume] in Serum or Plasma 102 mmol/L 98-107 [facility] ([facility]) Carbon dioxide, total [Moles/volume] in Serum or Plasma 27 meq/L 20 -31 [facility] ([facility]) Anion Gap 10 mmol/L 7-16 [facility] ([facility]) eGFR-female 61 mL/m/1.73m MEDENT ([facility]) eGFR-Aa female 74 mL/m/1.73m MEDENT ([facility]) <content>Normal Kidney Function or Mild Disease GFR >59 mL/min/1.73m2</content>
<content>Chronic Kidney Disease GFR 15-59 mL/min/1.73m2</content>
<content>Renal Failure GFR <15 mL/min/1.73m2</content>
<content></content> Alanine aminotransferase [Enzymatic activity/volume] in Seru m or Plasma 24 U/L 4-36 MEDENT ([facility]) Effective 12/21/2016: Webymaster has indicated interference with the drugs sulfasalazine and sulfapyridine. They suggest collection should occur prior to drug administration due to falsely depressed results. Alkaline phosphatase [Enzymatic activity/volume] in Serum or Plasma 53 U/L 46-116 MEDENT ([facility]) Aspartate aminotransferase [Enzymatic activity/volume] in Serum or Plasma 29 U/L 8-33 [facility]) Bilirubin.total [Mass/volume] in Serum or Plasma 0.4 mg/dL 0.3-1.2 [facility] ([facility]) Protein [Mass/volume] in Serum or Plasma 7.6 g/dL 6.4-8.3 [facility] ([facility]) Results may reflect a potential interfer ence in Total Protein results in patients receiving dextran as blood volume expanders. Albumin [Mass/volume] in Serum or Plasma 4.7 g/dL 3.6-5.1 [facility] ([facility]) Globulin [Mass/volume] in Serum by calculation 2.9 g/dL 1.9-3.7 [facility] ([facility]) Albumin/Globulin [Mass Ratio] in Serum or Plasma 1.6 Ratio 1.0-2.0 [facility] ([facility]) Calcium [Mass/volume] in Serum or Plasma 9.8 mg/dL 8.9-10.5 [facility] ([facility]) ID Date Data Source [id number] 02/01/2021 10:18:00 AM EDT [facility] [place] [place] Value Range Interpretation Code Description Data Vianey rce(s) Supporting Document(s) Triglycerides 121 [facility] ([facility]) Cholesterol 239 0-200 [facility] ([facility]) HDL 89 40-60 [facility] Chol/HDL Ratio Laboratory test result MEDENT ([facility]) Cholesterol in LDL [Mass/volume] in Serum or Plasma by calculation 12 6 MEDENT (Cardiology [facility]) ID Date Data Source [id number] 02/01/2021 10:18:00 AM EDT [facility] [place] [place] Name Value Range Interpretation Code Description Data Vianey rce(s) Supporting Document(s) Alanine aminotransferase [Enzymatic activity/volume] in Serum or Pl asma 24 MEDENT ([facility]) Albumin [Mass/volume] in Serum or Plasma 4.7 [facility] ([facility]) Carbon dioxide, total [Moles/volume] in Serum or Plasma 27 [facility] ([facility]) Calcium [Mass/volume] in Serum or Plasma 9.8 [facility] ([facility]) Alkaline phosphatase [Enzymatic activity/volume] in Serum or Plasma 5 3 [facility] ([facility]) Chloride [Moles/volume] in Serum or Plasma 102 [facility] ([facility]) Potassium [Moles/volume] in Serum or Plasma 4.5 [facility] ([facility]) Protein [Mass/volume] in Serum or Plasma 7.6 [facility] ([facility]) Sodium 139 [facility] ([facility]) Aspartate aminotransferase [Enzymatic activity/volume] in Serum or Plasma 29 [facility] ([facility]) Glucose 89 74-106 MEDENT (Cardiology [facility]) Urea nitrogen [Mass/volume] in Serum or Plasma 23 MEDENT ([facility]) Creatinine For GFR 0.9 [facility] ([facility]) ID Date Data Source [id number] 02/01/2021 10:18:00 AM EDT [facility] Name Value Range Interpretation Code Description Data Vianey rce(s) Supporting Document(s) White Blood Count 5.32 4.2-12.0 [facility] ([facility]) Platelets 287 135-420 MED[facility] ([facility]) Red Blood Count 4.14 3.9-5.4 [facility] ([facility]io [facility]) Hemoglobin 13.5 12.0-16.0 [facility] ([facility]) Hematocrit 41.2 36-47 [facility] ([facility]) ID Date Data Source [id number] 12/18/2020 10:20:00 AM EDT [facility] Name Value Range Interpretation Code Description Data Vianey rce(s) Supporting Document(s) Natriuretic peptide.B prohormone N-Terminal [Mass/volu me] in Serum or Plasma 403 pg/mL MED[facility] ([facility]) ID Date Data Source [id number] 12/18/2020 10:20:00 AM EDT [facility] Name Value Range Interpretation Code Description Data Vianey rce(s) Supporting Document(s) Glucose, Fasting 92 mg/dL 70-100 MED[facility] ([facility]i [facility]) Blood Urea Nitrogen 18 mg/dL 7-18 MED[facility] ([facility]) Creatinine For GFR 0.81 mg/dL 0.55-1.30 MED[facility] ([facility]) Glomerular Filtration Rate Laboratory test result MEDENT ([facility]) <content>Units are mL/min/1.73 m2</content>
<content></content>
<content>Chronic Kidney Disease Staging per NKF:</content>
<content></content>
<content>Stage I & II GFR >=60 Normal to Mildly Decreased</content>
<content>Stage III GFR 30- 59 Moderately Decreased</content>
<content>Stage IV GFR 15-29 Severely Decreased</content>
<content>Stage V GFR <15 Very Little GFR Left</content>
<content>ESRD GFR <15 on [employer]</content>
<content></content> Chloride Level 106 meq/L 98-107 [facility] ([facility]) Sodium Level 139 meq/L 136-145 [facility] ([facility]) Potassium Serum 4.7 meq/L 3.5-5.1 [facility] ([facility]) Anion Gap 4 meq/L 8-16 [facility] Carbon Dioxide Level 29 meq/L 21-32 MEDENT (C [facility]) Calcium Level 9.0 mg/dL 8.8-10.2 [facility] ([facility]) Phosphorus Level 3.3 mg/dL 2.5-4.9 [facility] ([facility]i [facility]) Albumin 3.8 GM/DL 3.2-5.2 [facility] ([facility] ID Date Data Source [id number] 11/14/2020 12:01:00 PM EDT [facility] Name Value Range Interpretation Code Description Data Vianey rce(s) Supporting Document(s) Glucose mean value [Mass/volume] in Blood Estimated fr om glycated hemoglobin 120 mg/dL [facility] The Estimated Average Glucose is a calcu lation of the average glucose over the last 120 days including non-fasting as well as fasting levels. Hemoglobin A1c/Hemoglobin.total in Blood 5.8 % 3.6-6.9 [facility] ([facility]) <content>Hgb A1c Interpretation:</conten t>
<content><5.8% - Non- diabetic</content>
<content>>6.5% - Diabetic</content>
<content><7.0% - ADA diabetic treatment goal</content>
<content></content> Venipuncture Laboratory test result MEDE NT ([facility]) ID Date Data Source [id number] 11/14/2020 12:01:00 PM EDT [facility] Name Value Range Interpretation Code Description Data Vianey rce(s) Supporting Document(s) Triglyceride [Mass/volume] in Serum or Plasma 71 mg/dL 0-249 [facility] ([facility]) <content>National Cholesterol Education Program (NCEP) Guidelines:</content>
<content>Recommended Range <150 mg/dL</content>
<content></content> Cholesterol [Mass/volume] in Serum or Plasma 210 mg/dL 0-200 Above high normal MED[facility] ([facility]) Cholesterol in HDL [Mass/volume] in Serum or Plasma 90 mg/dL 40-60 Above high normal MEDENT ([facility]) Cholesterol in LDL [Mass/volume] in Serum or Plasma by calcu lation 106 mg/dL 0-130 [facility] ([facility]) VLDL 14 mg/dL 0-28 [facility] ([facility]) Cardiac Risk 2.33 Ratio 3.7-5.3 Below low normal [facility] ([facility]) ID Date Data Source [id number] 11/14/2020 12:01:00 PM EDT [facility] ([facility]) Name Value Range Interpretation Code Description Data Vianey rce(s) Supporting Document(s) Urea nitrogen [Moles/volume] in Serum or Plasma 19 mg/dL 6-20 [facility] ([facility]) Glucose [Mass/volume] in Serum or Plasma 96 mg/dL 74-106 [facility] ([facility]) [place] Diabetes Association (ADA) Recommended Range is 65-99 mg/dL Sodium [Moles/volume] in Serum or Plasma 140 mmol/L 136-145 [facility] ([facility]) Creatinine [Mass/volume] in Serum or Plasma 0.8 mg/dL 0.5-1.3 [facility] ([facility]) Potassium [Moles/volume] in Serum or Plasma 4.7 mmol/L 3.5-5.3 [facility] ([facility]) Chloride [Moles/volume] in Serum or Plasma 105 mmol/L 98-107 [facility] ([facility]) Anion Gap 7 mmol/L 7-16 [facility] ([facility]) Carbon dioxide, total [Moles/volume] in Serum or Plasma 28 meq/L 20 -31 [facility] ([facility]) eGFR-female 70 mL/m/1.73m [facility] ([facility]) eGFR-Aa female 85 mL/m/1.73m [facility] ([facility]) <content>Normal Kidney Function or Mild Disease GFR >59 mL/min/1.73m2</content>
<content>Chronic Kidney Disease GFR 15-59 mL/min/1.73m2</content>
<content>Renal Failure GFR <15 mL/min/1.73m2</content>
<content></content> Alkaline phosphatase [Enzymatic activity/volume] in Serum or Plasma 53 U/L 46-116 [facility] ([facility]) Alanine aminotransferase [Enzymatic activity/volume] in Seru m or Plasma 20 U/L 4-36 [facility]) Effective 12/21/2016: Webymaster has indicated interference with the drugs sulfasalazine and sulfapyridine. They suggest collection should occur prior to drug administration due to falsely depressed results. Aspartate aminotransferase [Enzymatic activity/volume] in Serum or Plasma 23 U/L 8-33 [facility] ([facility]) Bilirubin.total [Mass/volume] in Serum or Plasma 0.7 mg/dL 0.3-1.2 [facility] ([facility]) Protein [Mass/volume] in Serum or Plasma 6.8 g/dL 6.4-8.3 [facility] ([facility]) Results may reflect a potential interfer ence in Total Protein results in patients receiving dextran as blood volume expanders. Albumin [Mass/volume] in Serum or Plasma 4.4 g/dL 3.6-5.1 [facility] ([facility]) Albumin/Globulin [Mass Ratio] in Serum or Plasma 1.8 Ratio 1.0-2.0 [facility] ([facility]) Globulin [Mass/volume] in Serum by calculation 2.4 g/dL 1.9-3.7 [facility] ([facility]) Calcium [Mass/volume] in Serum or Plasma 9.9 mg/dL 8.9-10.5 [facility] ([facility]) ID Date Data Source [id number] 11/14/2020 08:58:00 AM EDT [facility] ([facility]) Name Value Range Interpretation Code Description Data Vianey rce(s) Supporting Document(s) Cholesterol 210 [facility] ([facility]) Triglycerides 71 [facility] ([facility]) HDL 90 [facility] Cholesterol in LDL [Mass/volume] in Serum or Plasma by calculation 10 6 [facility] ([facility]) Chol/HDL Ratio 2.33 [facility] ([facility]) ID Date Data Source [id number] 11/14/2020 08:58:00 AM EDT [facility] ([facility]i [facility]) Name Value Range Interpretation Code Description Data Vianey rce(s) Supporting Document(s) Albumin [Mass/volume] in Serum or Plasma 4.4 [facility] ([facility]) Alanine aminotransferase [Enzymatic activity/volume] in Serum or Pl asma 20 [facility] ([facility]) Calcium [Mass/volume] in Serum or Plasma 9.9 [facility] ([facility]) Carbon dioxide, total [Moles/volume] in Serum or Plasma 28 [facility] ([facility]) Chloride [Moles/volume] in Serum or Plasma 105 [facility] ([facility]) Alkaline phosphatase [Enzymatic activity/volume] in Serum or Plasma 5 3 [facility] ([facility]) Potassium [Moles/volume] in Serum or Plasma 4.7 [facility] ([facility]) Protein [Mass/volume] in Serum or Plasma 6.8 [facility] ([facility]) Sodium 140 [facility] ([facility]) Urea nitrogen [Mass/volume] in Serum or Plasma 19 [facility] ([facility]) Aspartate aminotransferase [Enzymatic activity/volume] in Serum or Plasma 23 [facility] ([facility]) Creatinine For GFR 0.8 [facility] ([facility]) Glucose 96 [facility] ([facility]) ID Date Data Source [id number] 03/28/2020 04:02:00 PM EDT [facility] ([facility]) Name Value Range Interpretation Code Description Data Vianey rce(s) Supporting Document(s) Hemoglobin A1c/Hemoglobin.total in Blood 6.0 % 3.6-6.9 [facility] ([facility]) <content>Hgb A1c Interpretation:</conten t>
<content><5.8% - Non- diabetic</content>
<content>>6.5% - Diabetic</content>
<content><7.0% - ADA diabetic treatment goal</content>
<content></content> Glucose mean value [Mass/volume] in Blood Estimated fr om glycated hemoglobin 126 mg/dL [facility] The Estimated Average Glucose is a calcu lation of the average glucose over the last 120 days including non-fasting as well as fasting levels. Vitamin D+Metabolites [Mass/volume] in Serum or Plasma 65.04 ng/mL 30 -100 [facility] ([facility]) <content>Recommended Levels for Circulat ing 25-hydroxy Vitamin D:</content>
<content>Vitamin D Status 25-OH Vitamin D Test Result</content>
<content>Deficient <10ng/mL</content>
<content>Insufficient 10- 29ng/mL</content>
<content>Sufficient 30-100ng/mL</content>
<content>Potential Intoxication >100ng/mL</content>
<content>A pediatric reference range has not been established using this method.</content>
<content></content> Venipuncture Laboratory test result [facility] ([facility]) ID Date Data Source [id number] 03/28/2020 04:02:00 PM EDT [facility] ([facility]) Name Value Range Interpretation Code Description Data Vianey rce(s) Supporting Document(s) Triglyceride [Mass/volume] in Serum or Plasma 213 mg/dL 0-249 [facility] ([facility]) <content>National Cholesterol Education Program (NCEP) Guidelines:</content>
<content>Recommended Range <150 mg/dL</content>
<content></content> Cholesterol in HDL [Mass/volume] in Serum or Plasma 91 mg/dL 40-60 Above high normal [facility] ([facility]) Cholesterol [Mass/volume] in Serum or Plasma 214 mg/dL 0-200 Above high normal [facility] ([facility]) VLDL 43 mg/dL 0-28 Above high normal [facility] ([facility]) Cholesterol in LDL [Mass/volume] in Serum or Plasma by calcu lation 80 mg/dL 0-130 [facility] ([facility]) Cardiac Risk 2.35 Ratio 3.7-5.3 Below low normal [facility] ([facility]) ID Date Data Source [id number] 03/28/2020 04:02:00 PM EDT [facility] ([facility]) Name Value Range Interpretation Code Description Data Vianey rce(s) Supporting Document(s) Glucose [Mass/volume] in Serum or Plasma 96 mg/dL 74-106 [facility] ([facility]) [place] Diabetes Association (ADA) Recommended Range is 65-99 mg/dL Urea nitrogen [Moles/volume] in Serum or Plasma 27 mg/dL 6-20 Above high normal [facility] ([facility]) Creatinine [Mass/volume] in Serum or Plasma 1.0 mg/dL 0.5-1.3 [facility] ([facility]) Sodium [Moles/volume] in Serum or Plasma 141 mmol/L 136-145 [facility] ([facility]) Chloride [Moles/volume] in Serum or Plasma 104 mmol/L 98-107 [facility] ([facility]) Carbon dioxide, total [Moles/volume] in Serum or Plasma 28 meq/L 20 -31 [facility] ([facility]) Potassium [Moles/volume] in Serum or Plasma 5.0 mmol/L 3.5-5.3 [facility] ([facility]) Anion Gap 9 mmol/L 7-16 [facility] ([facility]) eGFR-female 54 mL/m/1.73m [facility] ([facility]) eGFR-Aa female 66 mL/m/1.73m [facility] ([facility]) <content>Normal Kidney Function or Mild Disease GFR >59 mL/min/1.73m2</content>
<content>Chronic Kidney Disease GFR 15-59 mL/min/1.73m2</content>
<content>Renal Failure GFR <15 mL/min/1.73m2</content>
<content></content> Alkaline phosphatase [Enzymatic activity/volume] in Serum or Plasma 56 U/L 46-116 [facility] ([facility]) Alanine aminotransferase [Enzymatic activity/volume] in Seru m or Plasma 15 U/L 4-36 [facility] ([facility]) Effective 12/21/2016: Webymaster has indicated interference with the drugs sulfasalazine and sulfapyridine. They suggest collection should occur prior to drug administration due to falsely depressed results. Bilirubin.total [Mass/volume] in Serum or Plasma 0.3 mg/dL 0.3-1.2 [facility] ([facility]) Aspartate aminotransferase [Enzymatic activity/volume] in Serum or Plasma 22 U/L 8-33 [facility] Protein [Mass/volume] in Serum or Plasma 6.7 g/dL 6.4-8.3 [facility] ([facility]) Results may reflect a potential interfer ence in Total Protein results in patients receiving dextran as blood volume expanders. Albumin [Mass/volume] in Serum or Plasma 4.4 g/dL 3.6-5.1 [facility] ([facility]) Globulin [Mass/volume] in Serum by calculation 2.3 g/dL 1.9-3.7 [facility] ([facility]) Albumin/Globulin [Mass Ratio] in Serum or Plasma 1.9 Ratio 1.0-2.0 [facility] Calcium [Mass/volume] in Serum or Plasma 9.7 mg/dL 8.9-10.5 [facility] Procedure Social History Code Duration Value Status Description Data Source(s ) Smoking 02/01/2021 12:00:00 AM EDT Patient has never smoked co mpleted Patient has never smoked MEDENT ([facility]) Smoking 12/05/2020 01:46:11 PM EDT Never smoked tobacco (findi ng) completed Never smoked tobacco (finding) [facility] ([facility]) Smoking 11/15/2020 12:00:00 AM EDT Never Smoker completed Never S moker eCW1 ([facility]) Smoking 11/15/2020 12:00:00 AM EDT Never Smoker completed Never S moker eCW1 ([facility]) Smoking 11/15/2020 12:00:00 AM EDT Never Smoker completed Never S moker eCW1 ([facility]) Smoking 11/15/2020 12:00:00 AM EDT Never Smoker completed Never S moker eCW1 ([facility]) Smoking 11/15/2020 12:00:00 AM EDT Never Smoker completed Never S moker eCW1 ([facility]) Smoking 11/15/2020 12:00:00 AM EDT Never Smoker completed Never S moker eCW1 ([facility]) Smoking 11/15/2020 12:00:00 AM EDT Never Smoker completed Never S moker eCW1 ([facility]) Smoking 11/15/2020 12:00:00 AM EDT Never Smoker completed Never S moker eCW1 ([facility]) Smoking 11/15/2020 12:00:00 AM EDT Never Smoker completed Never S moker eCW1 ([facility]) Smoking 11/15/2020 12:00:00 AM EDT Never Smoker completed Never S moker eCW1 ([facility]) Smoking 11/15/2020 12:00:00 AM EDT Never Smoker completed Never S moker eCW1 ([facility]) Smoking 11/15/2020 12:00:00 AM EDT Never Smoker completed Never S moker eCW1 ([facility]) Smoking 11/15/2020 12:00:00 AM EDT Never Smoker completed Never S moker eCW1 ([facility]) Smoking 11/15/2020 12:00:00 AM EDT Never Smoker completed Never S moker eCW1 ([facility]) Smoking 11/15/2020 12:00:00 AM EDT Never Smoker completed Never S moker eCW1 ([facility]) Smoking 11/15/2020 12:00:00 AM EDT Never Smoker completed Never S moker eCW1 ([facility]) Smoking 11/15/2020 12:00:00 AM EDT Never Smoker completed Never S moker eCW1 ([facility]) Smoking 11/15/2020 12:00:00 AM EDT Never Smoker completed Never S moker eCW1 ([facility]) Smoking 11/15/2020 12:00:00 AM EDT Never Smoker completed Never S moker eCW1 ([facility]) Vital Signs ID Date Data Source UNK Name Value Range Interpretation Code Description Data Source(s) Heart rate 71 /min 71 /min MEDENT ([facility]) Respiratory rate 18 /min 18 /min [facility] ( [facility]) Oxygen saturation in Arterial blood by Pulse oximetry 98 % 98 % [facility] ([facility], [facility]) Body temperature 97.1 [degF] 97.1 [degF] [facility]) Body weight 162.00 [lb_av] 162.00 [lb_av] MEDEN T ([facility]) Body height 66 [in_i] 66 [in_i] MEDENT ([facility]) 5'6" Body mass index (BMI) [Ratio] 26.1 kg/m2 26.1 k g/m2 [facility] Systolic blood pressure 160 mm[Hg] 160 mm[Hg] M EDENT ([facility]) Diastolic blood pressure 84 mm[Hg] 84 mm[Hg] [facility] ([facility]) Body height 65 [in_i] 65 [in_i] [facility] ([facility]) 5'5" Body weight 164.00 [lb_av] 164.00 [lb_av] MEDEN T ([facility]) Body mass index (BMI) [Ratio] 27.3 kg/m2 27.3 k g/m2 [facility] ([facility]) Systolic blood pressure--sitting 118 mm[Hg] 118 mm[Hg] [facility] ([facility]) Ra, medium cuff Diastolic blood pressure--sitting 70 mm[Hg] 70 mm[Hg] [facility] ([facility]) Ra, medium cuff Diastolic blood pressure 72 mm[Hg] 72 mm[Hg] [facility] ([facility]) Heart rate 60 /min 60 /min [facility] ([facility]) Body height 66.00 [in_i] 66.00 [in_i] [facility] ([facility] 5'6" Body weight 165.00 [lb_av] 165.00 [lb_av] MEDEN T ([facility]) Body mass index (BMI) [Ratio] 26.6 kg/m2 26.6 k g/m2 [facility] ([facility]) Systolic blood pressure 116 mm[Hg] 116 mm[Hg] M EDENT ([facility]) Body temperature 96.9 [degF] 96.9 [degF] [facility] ([facility]) Body temperature 36.1 Amina 36.1 Amina [facility] ( [facility]) Respiratory rate 16 /min 16 /min [facility] ( [facility]) Respiratory rate 16 /min 16 /min [facility] ( [facility]) Heart rate 60 /min 60 /min [facility] ([facility]) regular Body height 65 [in_i] 65 [in_i] MEDENT ([facility] 5'5" Body weight 164.00 [lb_av] 164.00 [lb_av] MEDEN T ([facility]) Systolic blood pressure--sitting 152 mm[Hg] 152 mm[Hg] MEDENT ([facility]) Medium cuff, Ra Diastolic blood pressure--sitting 78 mm[Hg] 78 mm[Hg] MEDENT ([facility]) Medium cuff, Ra Systolic blood pressure--supine 152 mm[Hg] 152 mm[Hg] MEDENT ([facility]) Body mass index (BMI) [Ratio] 27.3 kg/m2 27.3 k g/m2 MEDENT ([facility]) Diastolic blood pressure--supine 76 mm[Hg] 76 mm[Hg] MEDENT ([facility]) Diastolic blood pressure 70 mm[Hg] 70 mm[Hg] eCW1 ([facility]) Body mass index (BMI) [Ratio] 27.42 kg/m2 27.42 kg/m2 eCW1 ([facility]) Systolic blood pressure 126 mm[Hg] 126 mm[Hg] e CW1 ([facility]) Body weight 164.8 [lb_av] 164.8 [lb_av] eCW1 ([facility]) Body height 65 [in_i] 65 [in_i] eCW1 ([facility]) Diastolic blood pressure 72 mm[Hg] 72 mm[Hg] MEDENT ([facility]) Body temperature 36.3 Amina 36.3 Amina MEDENT ( [facility]) Body weight 164.00 [lb_av] 164.00 [lb_av] MEDEN T ([facility]) Body height 66.00 [in_i] 66.00 [in_i] MEDENT ([facility]) 5'6" Body mass index (BMI) [Ratio] 26.5 kg/m2 26.5 k g/m2 MEDENT ([facility]) Systolic blood pressure 140 mm[Hg] 140 mm[Hg] M EDENT ([facility]) Heart rate 58 /min 58 /min MEDENT ([facility]) Body temperature 97.3 [degF] 97.3 [degF] MEDENT ([facility]) Oxygen saturation in Arterial blood by Pulse oximetry 95 % 95 % MEDENT ([facility]) Body temperature 97.7 [degF] 97.7 [degF] MEDENT ([facility]) Body height 66 [in_i] 66 [in_i] MEDENT ([facility]) 5'6" Body weight 166.00 [lb_av] 166.00 [lb_av] MEDEN T ([facility]) Body mass index (BMI) [Ratio] 26.8 kg/m2 26.8 k g/m2 MEDENT ([facility]) Systolic blood pressure 120 mm[Hg] 120 mm[Hg] M EDENT ([facility]) Diastolic blood pressure 80 mm[Hg] 80 mm[Hg] MEDENT ([facility]) Heart rate 60 /min 60 /min MEDENT ([facility]) Body temperature 36.5 Amina 36.5 Amina MEDENT ( [facility]) Respiratory rate 16 /min 16 /min MEDENT ( [facility]) Patient Treatment Plan of Care Planned Activity Planned Date Details Description Data Source (s) Fluconazole 100 MG Oral Tablet [Diflucan] 03/29/2021 12:00:00 AM ED T eCW1 ([facility]) Fluconazole 100 MG Oral Tablet [Diflucan] 03/29/2021 12:00:00 AM ED T eCW1 ([facility]) Fluconazole 100 MG Oral Tablet [Diflucan] 03/29/2021 12:00:00 AM ED T eCW1 ([facility]) Fluconazole 100 MG Oral Tablet [Diflucan] 03/29/2021 12:00:00 AM ED T eCW1 ([facility]) Fluconazole 100 MG Oral Tablet [Diflucan] 03/29/2021 12:00:00 AM ED T eCW1 ([facility]) NITROFURANTOIN, MACROCRYSTALS 25 MG / Ni trofurantoin, Monohydrate 75 MG Oral Capsule [Macrobid] 03/27/2021 12:00:00 AM EDT eC W1 ([facility]) NITROFURANTOIN, MACROCRYSTALS 25 MG / Ni trofurantoin, Monohydrate 75 MG Oral Capsule [Macrobid] 03/27/2021 12:00:00 AM EDT eC W1 ([facility]) NITROFURANTOIN, MACROCRYSTALS 25 MG / Ni trofurantoin, Monohydrate 75 MG Oral Capsule [Macrobid] 03/27/2021 12:00:00 AM EDT eC W1 ([facility]) NITROFURANTOIN, MACROCRYSTALS 25 MG / Ni trofurantoin, Monohydrate 75 MG Oral Capsule [Macrobid] 03/27/2021 12:00:00 AM EDT eC W1 ([facility]) NITROFURANTOIN, MACROCRYSTALS 25 MG / Ni trofurantoin, Monohydrate 75 MG Oral Capsule [Macrobid] 03/27/2021 12:00:00 AM EDT eC W1 ([facility]) NITROFURANTOIN, MACROCRYSTALS 25 MG / Ni trofurantoin, Monohydrate 75 MG Oral Capsule [Macrobid] 03/27/2021 12:00:00 AM EDT eC W1 ([facility]) NITROFURANTOIN, MACROCRYSTALS 25 MG / Ni trofurantoin, Monohydrate 75 MG Oral Capsule [Macrobid] 03/27/2021 12:00:00 AM EDT eC W1 ([facility]) Cephalexin 500 MG Oral Capsule 03/26/2021 12:00:00 AM EDT eCW1 ([facility]) Cephalexin 500 MG Oral Capsule 03/26/2021 12:00:00 AM EDT eCW1 ([facility]) Cephalexin 500 MG Oral Capsule 03/26/2021 12:00:00 AM EDT eCW1 ([facility]) Cephalexin 500 MG Oral Capsule 03/26/2021 12:00:00 AM EDT eCW1 ([facility]) Cephalexin 500 MG Oral Capsule 03/26/2021 12:00:00 AM EDT eCW1 ([facility]) Cephalexin 500 MG Oral Capsule 03/26/2021 12:00:00 AM EDT eCW1 ([facility]) Cephalexin 500 MG Oral Capsule 03/26/2021 12:00:00 AM EDT eCW1 ([facility]) Cephalexin 500 MG Oral Capsule 03/26/2021 12:00:00 AM EDT eCW1 ([facility]) Cephalexin 500 MG Oral Capsule 03/26/2021 12:00:00 AM EDT eCW1 ([facility]) NITROFURANTOIN, MACROCRYSTALS 25 MG / Ni trofurantoin, Monohydrate 75 MG Oral Capsule [Macrobid] 03/21/2021 12:00:00 AM EDT eC W1 ([facility]) NITROFURANTOIN, MACROCRYSTALS 25 MG / Ni trofurantoin, Monohydrate 75 MG Oral Capsule [Macrobid] 03/21/2021 12:00:00 AM EDT eC W1 ([facility]) NITROFURANTOIN, MACROCRYSTALS 25 MG / Ni trofurantoin, Monohydrate 75 MG Oral Capsule [Macrobid] 03/21/2021 12:00:00 AM EDT eC W1 ([facility]) NITROFURANTOIN, MACROCRYSTALS 25 MG / Ni trofurantoin, Monohydrate 75 MG Oral Capsule [Macrobid] 03/21/2021 12:00:00 AM EDT eC W1 ([facility]) NITROFURANTOIN, MACROCRYSTALS 25 MG / Ni trofurantoin, Monohydrate 75 MG Oral Capsule [Macrobid] 03/21/2021 12:00:00 AM EDT eC W1 ([facility]) NITROFURANTOIN, MACROCRYSTALS 25 MG / Ni trofurantoin, Monohydrate 75 MG Oral Capsule [Macrobid] 03/21/2021 12:00:00 AM EDT eC W1 ([facility]) NITROFURANTOIN, MACROCRYSTALS 25 MG / Ni trofurantoin, Monohydrate 75 MG Oral Capsule [Macrobid] 03/21/2021 12:00:00 AM EDT eC W1 ([facility]) NITROFURANTOIN, MACROCRYSTALS 25 MG / Ni trofurantoin, Monohydrate 75 MG Oral Capsule [Macrobid] 03/21/2021 12:00:00 AM EDT eC W1 ([facility]) NITROFURANTOIN, MACROCRYSTALS 25 MG / Ni trofurantoin, Monohydrate 75 MG Oral Capsule [Macrobid] 03/21/2021 12:00:00 AM EDT eC W1 ([facility]) NITROFURANTOIN, MACROCRYSTALS 25 MG / Ni trofurantoin, Monohydrate 75 MG Oral Capsule [Macrobid] 03/21/2021 12:00:00 AM EDT eC W1 ([facility]) NITROFURANTOIN, MACROCRYSTALS 25 MG / Ni trofurantoin, Monohydrate 75 MG Oral Capsule [Macrobid] 03/21/2021 12:00:00 AM EDT eC W1 ([facility]) NITROFURANTOIN, MACROCRYSTALS 25 MG / Ni trofurantoin, Monohydrate 75 MG Oral Capsule [Macrobid] 03/21/2021 12:00:00 AM EDT eC W1 ([facility]) NITROFURANTOIN, MACROCRYSTALS 25 MG / Ni trofurantoin, Monohydrate 75 MG Oral Capsule [Macrobid] 03/21/2021 12:00:00 AM EDT eC W1 ([facility]) NITROFURANTOIN, MACROCRYSTALS 25 MG / Ni trofurantoin, Monohydrate 75 MG Oral Capsule [Macrobid] 03/21/2021 12:00:00 AM EDT eC W1 ([facility]) NITROFURANTOIN, MACROCRYSTALS 25 MG / Ni trofurantoin, Monohydrate 75 MG Oral Capsule [Macrobid] 03/21/2021 12:00:00 AM EDT eC W1 ([facility]) Fluconazole 150 MG Oral Tablet [Diflucan] 03/19/2021 12:00:00 AM ED T eCW1 ([facility]) NITROFURANTOIN, MACROCRYSTALS 25 MG / Ni trofurantoin, Monohydrate 75 MG Oral Capsule [Macrobid] 03/19/2021 12:00:00 AM EDT eC W1 ([facility]) Fluconazole 150 MG Oral Tablet [Diflucan] 03/19/2021 12:00:00 AM ED T eCW1 ([facility]) NITROFURANTOIN, MACROCRYSTALS 25 MG / Ni trofurantoin, Monohydrate 75 MG Oral Capsule [Macrobid] 03/19/2021 12:00:00 AM EDT eC W1 ([facility]) Fluconazole 150 MG Oral Tablet [Diflucan] 03/19/2021 12:00:00 AM ED T eCW1 ([facility]) NITROFURANTOIN, MACROCRYSTALS 25 MG / Ni trofurantoin, Monohydrate 75 MG Oral Capsule [Macrobid] 03/19/2021 12:00:00 AM EDT eC W1 ([facility]) Fluconazole 150 MG Oral Tablet [Diflucan] 03/19/2021 12:00:00 AM ED T eCW1 ([facility]) NITROFURANTOIN, MACROCRYSTALS 25 MG / Ni trofurantoin, Monohydrate 75 MG Oral Capsule [Macrobid] 03/19/2021 12:00:00 AM EDT eC W1 ([facility]) Fluconazole 150 MG Oral Tablet [Diflucan] 03/19/2021 12:00:00 AM ED T eCW1 ([facility]) NITROFURANTOIN, MACROCRYSTALS 25 MG / Ni trofurantoin, Monohydrate 75 MG Oral Capsule [Macrobid] 03/19/2021 12:00:00 AM EDT eC W1 ([facility]) Fluconazole 150 MG Oral Tablet [Diflucan] 03/19/2021 12:00:00 AM ED T eCW1 ([facility]) NITROFURANTOIN, MACROCRYSTALS 25 MG / Ni trofurantoin, Monohydrate 75 MG Oral Capsule [Macrobid] 03/19/2021 12:00:00 AM EDT eC W1 ([facility]) Fluconazole 150 MG Oral Tablet [Diflucan] 03/19/2021 12:00:00 AM ED T eCW1 ([facility]) NITROFURANTOIN, MACROCRYSTALS 25 MG / Ni trofurantoin, Monohydrate 75 MG Oral Capsule [Macrobid] 03/19/2021 12:00:00 AM EDT eC W1 ([facility]) NITROFURANTOIN, MACROCRYSTALS 25 MG / Ni trofurantoin, Monohydrate 75 MG Oral Capsule [Macrobid] 03/19/2021 12:00:00 AM EDT eC W1 ([facility]) Fluconazole 150 MG Oral Tablet [Diflucan] 03/19/2021 12:00:00 AM ED T eCW1 ([facility]) NITROFURANTOIN, MACROCRYSTALS 25 MG / Ni trofurantoin, Monohydrate 75 MG Oral Capsule [Macrobid] 03/19/2021 12:00:00 AM EDT eC W1 ([facility]) Fluconazole 150 MG Oral Tablet [Diflucan] 03/19/2021 12:00:00 AM ED T eCW1 ([facility]) NITROFURANTOIN, MACROCRYSTALS 25 MG / Ni trofurantoin, Monohydrate 75 MG Oral Capsule [Macrobid] 03/19/2021 12:00:00 AM EDT eC W1 ([facility]) Fluconazole 150 MG Oral Tablet [Diflucan] 03/19/2021 12:00:00 AM ED T eCW1 ([facility]) NITROFURANTOIN, MACROCRYSTALS 25 MG / Ni trofurantoin, Monohydrate 75 MG Oral Capsule [Macrobid] 03/19/2021 12:00:00 AM EDT eC W1 ([facility]) Fluconazole 150 MG Oral Tablet [Diflucan] 03/19/2021 12:00:00 AM ED T eCW1 ([facility]) NITROFURANTOIN, MACROCRYSTALS 25 MG / Ni trofurantoin, Monohydrate 75 MG Oral Capsule [Macrobid] 03/19/2021 12:00:00 AM EDT eC W1 ([facility]) Fluconazole 150 MG Oral Tablet [Diflucan] 03/19/2021 12:00:00 AM ED T eCW1 ([facility]) NITROFURANTOIN, MACROCRYSTALS 25 MG / Ni trofurantoin, Monohydrate 75 MG Oral Capsule [Macrobid] 03/19/2021 12:00:00 AM EDT eC W1 ([facility]) Fluconazole 150 MG Oral Tablet [Diflucan] 03/19/2021 12:00:00 AM ED T eCW1 ([facility]) NITROFURANTOIN, MACROCRYSTALS 25 MG / Ni trofurantoin, Monohydrate 75 MG Oral Capsule [Macrobid] 03/19/2021 12:00:00 AM EDT eC W1 ([facility]) Fluconazole 150 MG Oral Tablet [Diflucan] 03/19/2021 12:00:00 AM ED T eCW1 ([facility]) NITROFURANTOIN, MACROCRYSTALS 25 MG / Ni trofurantoin, Monohydrate 75 MG Oral Capsule [Macrobid] 03/19/2021 12:00:00 AM EDT eC W1 ([facility]) Fluconazole 150 MG Oral Tablet [Diflucan] 03/19/2021 12:00:00 AM ED T eCW1 ([facility]) Fluconazole 150 MG Oral Tablet [Diflucan] 03/19/2021 12:00:00 AM ED T eCW1 ([facility]) NITROFURANTOIN, MACROCRYSTALS 25 MG / Ni trofurantoin, Monohydrate 75 MG Oral Capsule [Macrobid] 03/19/2021 12:00:00 AM EDT eC W1 ([facility]) Dexamethasone 1 MG/ML / Tobramycin 3 MG/ML Ophthalmic Suspension [Tobradex] 10/20/2018 12:00:00 AM EDT KYLAH (Christopher Garcia MD [facility])
--- OUTSIDE RECORDS SUMMARY | 2021-04-09 13:40 | CCD | Continuity of Care Document ---
Author Organization Unknown Address Unknown Phone Unavailable Care Team Providers [facility] Grinder Name Role Phone Lukasz Ayers MD [facility] [phone] Problems Active Problems Provider Date Palpitations Villa Barnes MD Onset: 11/06/2018 Electrocardiogram abnormal Villa Barnes MD Onset: 2018 Mitral valve disorder Villa Barnes MD Onset: 11/06/2018 Aortic valve disorder Villa Barnes MD Onset: 11/06/2018 Benign hypertensive heart disease without congestive h eart failure Villa Barnes MD Onset: 11/06/2018 Pulmonary hypertension Villa Barnes MD Onset: 11/27/2020 Social History Type Date Description Comments Sex [...] SIG Qnty Indications Ordering Provide r Date Spironolactone 25mg Tablets 1/2 by mouth every day 45tabs I11.9 Villa Barnes MD 11/27/2020 Chlorthalidone 25mg Tablets 1/2 by mouth mondays, wednesdays and fridays only 18tabs I11.9 Villa bassett MD 11/27/2020 Vitamin K2 100mcg Capsules 1 capsule po daily Unknown 12/31/2018 Xanax 0.25mg Tablets 1 by mouth 3 times daily as needed Unknown 11/05/2018 Metoprolol Succinate ER 200mg Tablets ER 24HR 1 by mouth every day Unknown [address] 1 by mouth every day Unknown 11/05/2018 Escitalopram Oxalate 10mg Tablets 1 by mouth every day Unknown 11/05/2018 Irbesartan 150mg Tablets 1 by mouth every day Unknown 11/05/2018 Vitamin D3 Ultra Strength 5000Unit Capsules 1 by mouth every day Unknown 019 Slovan 3 1200mg Capsules 4 by mouth every day Unknown 11/05/2018 Coq10 200mg Capsules 1 by mouth every day Unknown 11/05/2018 Immunizations Description No Information Available Vital Signs Date Vital Result Comment 11/27/2020 10:39am Weight 164.00 lb Home Weight 162lb home weight Height 65 inches 5'5" BMI (Body Mass Index) 27.3 kg/m2 Heart Rate 60 /min regular Respiratory Rate 16 /min BP Systolic Sitting 152 mmHg Medium cuff, Ra BP Diastolic Sitting 78 mmHg Medium cuff, Ra BP Systolic Lying Down 152 mmHg BP Diastolic Lying Down 76 mmHg 12/13/2019 9:16am Weight 162.00 lb Home Weight 161lb Height 65 inches 5'5" BMI (Body Mass Index) 27.0 kg/m2 Heart Rate 54 /min regular Respiratory Rate 16 /min BP Systolic Sitting 142 mmHg Medium cuff, Ra BP Diastolic Sitting 68 mmHg Medium cuff, Ra BP Systolic Lying Down 140 mmHg BP Diastolic Lying Down 66 mmHg O2 % BldC Oximetry 97 % On Room Air Results Test Acquired Date Facility Test Result H/L Range Note CBC without Differential 02/01/2021 [facility] ([facility])- - White Blood Count 5.32 [...] 126 Chol/HDL Ratio -- Renal Profile 12/18/2020 [facility] nter [phone] Glucose, Fasting 92 mg/dL Normal 70-100 Blood [...] GM/DL Normal 3.2-5.2 Laboratory test finding 12/18/[address] [facility] [phone] NT-Pro BNP 403 pg/mL High <125 CMP [...] Little GFR Left ESRD GFR <15 on [employer] Procedures Date Code Description Status 01/30/2021 49054 Holter Monitor MD Review And Rep ort Completed 01/30/2021 [id number] Holter Hookup,Recording,Disconne ct Completed 12/12/2020 65838 Echocardiogram 2-D Doppler Color Completed 11/27/2020 35470 Office/Outpatient Established Mo d MDM 30-39 Min Completed 11/27/2020 10638 ECG 12-Lead Completed Medical Devices Description No Information Available Encounters Type Date Location Provider Dx Diagnosis Office Visit 11/27/2020 10:15a Main Office Villa Barnes MD R00.2 Palpitations R94.31 Abnormal electrocardiogram [ ECG] [EKG] I11.9 Hypertensive heart disease w ithout heart failure I34.0 Nonrheumatic mitral (valve) insufficiency I35.1 Nonrheumatic aortic (valve) insufficiency I27.20 Pulmonary hypertension, unsp ecified Assessments Date Code Description Provider 01/30/2021 E78.2 Mixed hyperlipidemia Holter/Even t/Telemetry 01/30/2021 [...] I35.1 Nonrheumatic aortic (valve) insu fficiency Villa aBrnes MD 11/27/2020 I27.20 Pulmonary hypertension, unspecif ied Villa Barnes MD Plan of Treatment Future Appointment(s):* 02/15/2021 8:00 am - [place] [facility] at Main Office 11/27/2020 - Villa Barnes MD* R00.2 Palpitations* Recommendations:* In light of the seeming increase in her awareness of her heart action despite her current metoprolol succinate, we have requested a follow-up 24 hour recording of her heart rhythm. At this point, we have encouraged continued avoiding all caffeinated beverages, alcohol, nicotine and [id number] decongestants, pep pills, dietary aids etc. No change has been made to her current metoprolol succinate. * R94.31 Abnormal electrocardiogram [ECG] [EKG]* Recommendations:* On her current level of activity, has been free of symptom to suggest myocardial ischemia. Current EKG appearance is unchanged. Remains on protective combination metoprolol succinate, irbesartan, and low-dose aspirin. Requested that she contact us should she develop effort related chest, jaw, or arm discomforts. * I11.9 Hypertensive heart disease without heart failure* New Medication:* Spironolactone 25 mg - 1/2 by mouth every day * Chlorthalidone 25 mg - 1/2 by mouth mondays, wednesdays and fridays only * Recommendations:* No symptoms or signs of congestion but current office systolic blood pressures would be considered suboptimally controlled on her current combination medical therapy. In light of this and her palpitations, have started low-dose spironolactone 25 mg tablets one half tablet daily. We have also started low-dose chlorthalidone 25 mg tablets one half tablet Mondays, Wednesdays and Fridays only With these medication changes, have requested she obtain a series of resting sitting blood pressure measurements for us over the course of the next 2 weeks Follow-up chemistry will be checked after 2 weeks. * I34.0 Nonrheumatic mitral (valve) insufficiency* Recommendations:* No auscultatory change from last time. No symptom or sign of endocarditis. In l ight of her symptoms, a follow-up echocardiogram/Doppler study has been requested to reassess valvular structure and function. Pending her echocardiogram, zuniga management would be optimal blood pressure control. SBE antibiotic prophylaxis prior to dental or surgical procedures, is no longer indicated for this condition according to the [place] [employer] guidelines September 2006. * I35.1 Nonrheumatic aortic (valve) insufficiency* Recommendations:* As per assessment #4 * I27.20 Pulmonary hypertension, unspecified* New Orders:* Home Sleep Study, Scheduled: 01/02/21 * Recommendations:* With her increasing fatigue, nocturnal palpitations and history of snoring, we have requested a home sleep study to rule out obstructive sleep apnea. This condition can lead to suboptimal blood pressure control, significant rhythm problems including atrial fibrillation and risk of stroke, as well as worsening pulmonary hypertension and right heart failure. * All * Comments:* I will ensure that the aforementioned test findings are reported to you along with any further recommendations. Thank you for allowing me to participate in the care of your patient. Best regards. * Follow up:* Pending the results of the above studies, have requested a clinic visit in 1 month. Functional Status Functional Condition Comment Date Status Independent with all ADL's Activ e Mental Status Description No Information Available Referrals Description No Information Available
--- OUTSIDE RECORDS SUMMARY | 2021-04-09 13:40 | CCD | Continuity of Care Document ---
Author Author Riddhi AYERS MD Organization Unknown Address [address] [facility] [address] [place] [address] Phone [phone] Care Team Providers Care Slot Ambassador Name Role Phone Lukasz Ayers M.D. AUTM [phone] Problems Active Problems Provider Date Arthralgia of [...] regularly Allergies, Adverse Reactions, Alerts Active Allergies Reaction Severity Comments Date Codeine 11/27/2018 Codeine Sulfate 11/13/2015 Medications Active Medications SIG Qnty Indications [...] 2-6 months 1units Lukasz Ayers MD 09/23/2018 Bruno 3 1000mg Capsules 4800 every day 30caps [...] Magnesium 120 MG twice a day Unknown /0 000 Spironolactone 25mg Tablets 1/2 by mouth [...] CPT Code Status Date Vaccine Lot # [id number] Given 10/04/2020 Covid-19 vaccine, 30mcg/0.3m L 46995 Given 09/03/2020 Covid-19 vaccine, 30mcg/0.3m L 99707 Given 03/28/2020 Influenza, Flucelvax single dose (preservative free) [id number] 17814 Given 03/25/2019 Influenza, Flucelvax multi d ose [id number] 35727 Given 04/13/2018 Influenza Vaccin e, Quadrivalent, Split Virus, Im Use (Multi-Dose) [id number] 28098 Given 04/25/2017 Influenza Vaccin e, Quadrivalent, Split Virus, Im Use (Multi-Dose) [id number] 38769 Given 04/25/2016 Prevnar 13 94891 Given 04/25/2016 Influenza Virus Vaccine, Spl it 3 [place] [address] Given 04/05/2015 Influenza Virus Vaccine, Spl [place] [address] Given 04/12/2014 Influenza Virus Vaccine, Spl it [place] [address] Given 03/29/2013 Influenza Virus Vaccine, Spl [place] [address] Given 03/26/2012 Influenza Virus Vaccine, Spl it [place] [address] Given 04/11/2011 Influenza Virus Vaccine, Spl it [place] [address] Given 03/05/2010 Influenza Virus Vaccine, Spl it [address] [place] [address] Given 03/05/2010 Influenza Virus Vaccine, Spl it [...] Test Result H/L Range Note CMP-Female 02/01/2021 [facility] [address] [place] [address] [phone] Glucose 89 mg/dL 74-106 1 BUN 23 [...] 1.9-3.7 Calcium 9.8 mg/dL 8.9-10.5 Cbcadp 02/01/2021 [facility] [address] [place] [address] [phone] WBC. 5.32 x10E3/uL 4.2-12.0 RBC 4.14 x10E6/uL 3.9-5.4 HGB 13.5 g/dL 12.0-16.0 HCT 41.2 % 36-47 MCV 99.6 fL High 80-98 MCH 32.5 pg 27-33 MCHC 32.7 g/dL 32-36 RDW 13.6 % 11.2-15.2 PLT 287 x10E3/uL 135-420 MPV 7.9 fL 7.0-12.3 % Charles 54.7 % 41.0-80.0 %Lym 32.1 % 10.0-45.2 %[place] 6.2 % 2.0-13.0 %Eos 6.7 % 0.0-8.0 %Baso 0.2 % 0.0-3.0 Neut 2.9 x10E3/uL 2.0-8.1 Lymp 1.7 x10E3/uL 0.6-3.1 [place] 0.3 x10E3/uL 0.0-1.0 Eos 0.4 x10E3/uL 0.0-0.6 Baso 0.0 x10E3/uL 0.0-0.2 LPPM 02/01/2021 [facility] [address] [place] [address] [phone] Cholesterol 239 mg/dL High 0-200 Triglycerides 121 mg/dL 0-249 5 HDL 89 mg/dL High 40-60 LDL-Calculated 126 mg/dL 0-130 VLDL 24 mg/dL 0-28 Cardiac Risk 2.69 Ratio Low 3.7-5.3 Laboratory test finding 02/01/[address] [facility] [address] [phone] TSH3 2.050 mIU/ml 0.350-5.500 6 Free T4 0.98 ng/dL 0.89-1.80 7 Uam 02/01/[address] [address] [phone] Color. YELLOW - Clarity. CLEAR Clear-Clear Specific [place]. 1.015 1.005-1.030 PH. 5.5 4.6-8.0 Protein. NEGATIVE Neg-Negative Glucose, Urine NEGATIVE Neg-Negative Ketone. NEGATIVE Neg-Negative bilirubin. NEGATIVE Neg-Negative Blood. NEGATIVE Neg-Negative Nitrite. NEGATIVE Neg-Negative Leukocytes. NEGATIVE Neg-Negative Red Blood Cell 0-2 0-2 White Blood Cell 0-2 0-5 Squamous Epithelial Cell 0-2 0-10 Bacteria. NEGATIVE Neg-Negative Laboratory test finding 02/01/[address] [address] [phone] Vitamin D, 25(Oh). 69.13 ng/ml 30-100 8 Venipuncture DONE - 9 CMP-Female 11/14/[address] [address] [phone] Glucose 96 mg/dL 74-106 10 BUN 19 [...] 1.9-3.7 Calcium 9.9 mg/dL 8.9-10.5 LPPM 11/14/2020 [facility] [address] [place] [address] [phone] Cholesterol 210 mg/dL High 0-200 Triglycerides 71 mg/dL 0-249 14 HDL 90 mg/dL High 40-60 LDL-Calculated 106 mg/dL 0-130 VLDL 14 mg/dL 0-28 Cardiac Risk 2.33 Ratio Low 3.7-5.3 Laboratory test finding 11/14/2020 [facility] [address] [place] [address] [phone] Hgb A1c 5.8 % 3.6-6.9 15 Est. Average Glucose 120 mg/dL - 16 Venipuncture DONE - 1 [place] Diabetes Associ[employer] n (ADA) Recommended Range is 65-99 mg/dL 2 Normal Kidney Function or Mi ld Disease GFR >59 mL/min/1.73m2 Chronic Kidney Disease GFR 15-59 mL/min/1.73m2 Renal Failure GFR <15 mL/min/1.73m2 3 Effective 12/21/2016: [employer] has indicated interference with the drugs sulfasalazine and sulfapyridine. They suggest collection should occur prior to drug administration due to falsely depressed results. 4 Results may reflect a potent ial interference in Total Protein results in patients receiving dextran as blood volume expanders. 5 National Cholesterol Educati on Program (NCEP) Guidelines: Recommended Range <150 mg/dL 6 fasting 7 fasting 8 Recommended Levels for Byronu rodolfog 25-hydroxy Vitamin D: Vitamin D Status 25-OH Vitamin D Test Result Deficient <10ng/mL Insufficient 10-29ng/mL Sufficient 30-100ng/mL Potential Intoxication >100ng/mL A pediatric reference range has not been established using this method. 9 fasting 10 [place] Diabetes [employer] n (ADA) Recommended Range is 65-99 mg/dL 11 Normal Kidney Function or Mi ld Disease GFR >59 mL/min/1.73m2 Chronic Kidney Disease GFR 15-59 mL/min/1.73m2 Renal Failure GFR <15 mL/min/1.73m2 12 Effective 12/21/2016: [employer] has indicated interference with the drugs sulfasalazine [...] levels. Procedures Date Code Description Status 02/01/2021 02507 Office/Outpatient Established Mo d MDM 30-39 Min Completed 11/14/2020 78348 Office/Outpatient Established Mo d MDM 30-39 Min Completed Medical Devices Description No Information Available Encounters Type Date Location Provider Dx Diagnosis Office Visit 02/01/2021 2:00p CMP Primary Care AT [facility] humble Ayers MD I10 Essential (primary) hyperten brenton Z00.00 Encntr for general adult med ical exam w/o abnormal findings F41.1 Generalized anxiety disorder R00.2 Palpitations F32.0 Major depressive disorder, s jenny episode, mild Z13.31 Encounter for screening for depression Office Visit 11/14/2020 11:30a [facility] Primary Care AT [facility] humble Ayers MD E11.9 Type 2 diabetes [...] MD 02/01/2021 F41.1 Generalized anxiety disorder Andrew Ayers MD 02/01/2021 R00.2 Palpitations Lukasz Ayers [...] 11:00 am - Lukasz Ayers MD at [facility] Primary Care AT [facility] 02/01/2021 - Lukasz Ayers MD* I10 [...]
--- OUTSIDE RECORDS SUMMARY | 2021-04-09 13:40 | CCD | Continuity of Care Document ---
Author Author Riddhi BEAVERS Organization Unknown Address [address] [place] [address], [facility] [place] [address] Phone [phone] Care Team Providers Care Gold Reclaimer Name Role Phone Lukasz Ayers MD [facility] [phone] Problems Active Problems Provider Date Palpitations [place] [...] 1 by mouth every day Unknown 019 [place] 3 1200mg Capsules 4 by mouth every [...] 126 Chol/HDL Ratio -- Renal Profile 12/18/2020 [facility] nter [phone] Glucose, Fasting 92 mg/dL Normal 70-100 Blood [...] GM/DL Normal 3.2-5.2 Laboratory test finding 12/18/2020 [facility] [phone] NT-Pro BNP 403 pg/mL High <125 CMP [...] Little GFR Left ESRD GFR <15 on SMALL ANIMAL [employer]ERINARIAN Procedures Date Code Description Status 02/15/2021 53293 Office/Outpatient Established Mo d MDM 30-39 Min Completed 01/30/2021 90510 Holter Monitor MD Review And Rep ort Completed 01/30/2021 86321 Holter Hookup,Recording,Disconne ct Completed 12/12/2020 02485 Echocardiogram 2-D Doppler Color Completed 11/27/2020 52051 Office/Outpatient Established Mo d MDM 30-39 Min Completed 11/27/2020 99430 ECG 12-Lead Completed Medical Devices Description No [...]
[2021-04-09] MEDS ORDERED: CEPH500C (13:58)
[2021-04-09] MEDS ORDERED: NITR100C2 (13:58)
--- OUTSIDE RECORDS SUMMARY | 2021-04-09 17:33 | CCD ---
Author Author [facility] Organization [facility] Address Unknown Phone Unavailable Care Team Providers Care Screen Printing Inspector Name Role Phone Emir OROZCO MD Unavailable [...] MD, FACS Unavailable Unavailable Francisco Garcia, Teresa Zambraon MD, FACS Unavailable Unavailable Francisco Garcia, Teresa [...] is protected by Article 27-F of the [facility] Public Health law. If you continue you may have access to information: Regarding HIV / AIDS; Provided by facilities licensed or operated by the [facility] Office of Mental Health; or Provided by the [facility] Office for People With Developmental Disabilities. If such information is present, then the following [facility] mandated warning applies: This information has been [...] law may result in a fine or alf sentence or both. A general authorization for the release of medical or other information is NOT sufficient authorization for further disc losure. Family History Family Member Name Family Member Gender Family Member Status Date o f Status Description Data Source(s) Unknown Male Problem [facility] ([facility]) Encounters Encounter Providers Location Date Indications Data Source(s ) Unknown [address] [facility] [id number] 04/04/2021 12:00:00 AM EDT eCW1 ([facility] Unknown [address] [facility] [place] [address] 04/03/2021 12:00:00 AM EDT eCW1 ([facility] Unknown [address] [facility] [place] [address] 04/03/2021 12:00:00 AM EDT eCW1 ([facility]) Unknown [address] [facility] [place] [address] 03/29/2021 12:00:00 AM EDT eCW1 ([facility]) Unknown [address] [facility] [place] [address] 03/29/2021 12:00:00 AM EDT eCW1 ([facility]) Unknown [address] [facility] [place] [address] 03/26/2021 12:00:00 AM EDT eCW1 ([facility]) Unknown [address] [facility] [place] [address] 03/26/2021 12:00:00 AM EDT eCW1 ([facility]) [place] [address] [facility] [place] [address] 03/24/2021 12:00:00 AM EDT eCW1 ([facility]) [place] [address] [facility] [place] [address] 03/23/2021 12:00:00 AM EDT eCW1 ([facility]) [place] [address] [facility] [place] [address] 03/21/2021 12:00:00 AM EDT eCW1 ([facility]) Unknown [address] [facility] [place] [address] 03/21/2021 12:00:00 AM EDT eCW1 ([facility]) Unknown [address] [facility] [place] [address] 03/21/2021 12:00:00 AM EDT eCW1 ([facility]) Unknown [address] [facility] [place] [address] 03/21/2021 12:00:00 AM EDT eCW1 ([facility]) Unknown [address] [facility] [place] [address] 03/19/2021 12:00:00 AM EDT eCW1 ([facility]) ( [place]) [facility] [address] [place] [address] 03/19/2021 12:00:00 AM EDT eCW1 ([facility]) [place] [address] [facility] [address] 03/19/2021 12:00:00 AM EDT eCW1 ([facility]) Outpatient Attender: HILLARY serna 03/01/2021 01:30:00 PM EDT MED[facility] ([facility]) Outpatient Attender: NATHALIA PERRY Main Office 02/15/2021 0 8:00:00 AM EDT MEDENT ([facility]) Outpatient Attender: CHRISTIANO CLIFFORD MD [facility] Internal Med at [place] 02/01/2021 02:00:00 PM EDT [facility] ([facility]) Unknown [address] [facility] [place] [address] 01/31/2021 12:00:00 AM EDT eCW1 ([facility]) Unknown [address] [facility] [place] [address] 01/31/2021 12:00:00 AM EDT eCW1 (Formerly [facility]) Outpatient<td ID="encounterTypeDescripti onID0">1 Year Follow-Up</td><td>Juan Manuel Quintana MD, FACS</td><td>Juan Manuel Quintana MD [facility]</td><td>12/05/2020</td><td>12:51PM</td><td>02/12/2019 11:59PM</td><td><content ID="encounterDiagnosisID0-0">Essential Hypertension</content>, <content ID="encounterDiagnosisID0-1">Drusen</content>, <content ID="encounterDiagnosisID0-2">Cataract Senile Cortical</content>, <content ID="encounterDiagnosisID0-3">Cataract Senile Nuclear</content>, <content ID="encounterDiagnosisID0-4">Dry Eye Syndrome</content></td> Attender: Juan Manuel Garcia MD, FACS Juan Manuel Quintana MD [facility] 12/05/2020 12:51:00 PM EDT - 02/12/2019 11:59:00 PM EDT Dry Eye SyndromeDrusenCataract Senile Nu clearCataract Senile CorticalEssential Hypertension [place] (Jaun Manuel Garcia MD [facility]) Dry Eye Syndrome 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 Internal Med at [place] 11/14/2020 11:30:00 AM EDT MEDENT ([facility]) Outpatient Attender: CHRISTIANO CLIFFORD MD [facility] Internal Med at [place] 03/28/2020 03:00:00 PM EDT MEDENT ([facility]) Immunizations Vaccine Date Status Description Data Source(s) Covid-19 vaccine, 30mcg/0.3mL 10/04/2020 11:31:00 AM EDT completed MEDENT ([facility]) Covid-19 vaccine, 30mcg/0.3mL 09/03/2020 11:31:00 AM EDT completed MEDENT ([facility]) Influenza, injectable, MDCK, preservative free, tiana valent 03/28/2020 03:54:00 PM EDT completed [facility] ([facility]) Medications Medication Brand Name Start Date Product Form Dose Route Admi nistrative Instructions Pharmacy Instructions Status Indications Reaction Description Data Source(s) Fluconazole 100 MG Oral Tablet [Diflucan] Diflucan 100 MG Di flucan 100 MG 03/29/2021 12:00:00 AM EDT 1.0 {tablet} active Diflucan 100 MG eCW1 ([facility]ly [facility]) Fluconazole 100 MG Oral Tablet [Diflucan] Diflucan 100 MG Di flucan 100 MG 03/29/2021 12:00:00 AM EDT 1.0 {tablet} active Diflucan 100 MG eCW1 ([facility]ly [facility]) Fluconazole 100 MG Oral Tablet [Diflucan] Diflucan 100 MG Di flucan 100 MG 03/29/2021 12:00:00 AM EDT 1.0 {tablet} active Diflucan 100 MG eCW1 ([facility]ly [facility]) Fluconazole 100 MG Oral Tablet [Diflucan] Diflucan 100 MG Di flucan 100 MG 03/29/2021 12:00:00 AM EDT 1.0 {tablet} active Diflucan 100 MG eCW1 ([facility]) Fluconazole 100 MG Oral Tablet [Diflucan] Diflucan 100 MG Di flucan 100 MG 03/29/2021 12:00:00 AM EDT 1.0 {tablet} active Diflucan 100 MG eCW1 ([facility]) NITROFURANTOIN, MACROCRYSTALS 25 MG / Ni trofurantoin, Monohydrate 75 MG Oral Capsule [Macrobid] Macrobid 100 MG Macrobid 100 MG 03/27/2021 12:00:00 AM EDT 1.0 {capsule} active Macrobid 100 MG eC W1 ([facility]ly [facility]) NITROFURANTOIN, MACROCRYSTALS 25 MG / Ni trofurantoin, Monohydrate 75 MG Oral Capsule [Macrobid] Macrobid 100 MG Macrobid 100 MG 03/27/2021 12:00:00 AM EDT 1.0 {capsule} active Macrobid 100 MG eC W1 ([facility]) NITROFURANTOIN, MACROCRYSTALS 25 MG / Ni trofurantoin, Monohydrate 75 MG Oral Capsule [Macrobid] Macrobid 100 MG Macrobid 100 MG 03/27/2021 12:00:00 AM EDT 1.0 {capsule} active Macrobid 100 MG eC W1 ([facility]) NITROFURANTOIN, MACROCRYSTALS 25 MG / Ni trofurantoin, Monohydrate 75 MG Oral Capsule [Macrobid] Macrobid 100 MG Macrobid 100 MG 03/27/2021 12:00:00 AM EDT 1.0 {capsule} active Macrobid 100 MG eC W1 ([facility]) NITROFURANTOIN, MACROCRYSTALS 25 MG / Ni trofurantoin, Monohydrate 75 MG Oral Capsule [Macrobid] Macrobid 100 MG Macrobid 100 MG 03/27/2021 12:00:00 AM EDT 1.0 {capsule} active Macrobid 100 MG eC W1 ([facility]) NITROFURANTOIN, MACROCRYSTALS 25 MG / Ni trofurantoin, Monohydrate 75 MG Oral Capsule [Macrobid] Macrobid 100 MG Macrobid 100 MG 03/27/2021 12:00:00 AM EDT 1.0 {capsule} active Macrobid 100 MG eC W1 ([facility]) NITROFURANTOIN, MACROCRYSTALS 25 MG / Ni trofurantoin, Monohydrate 75 MG Oral Capsule [Macrobid] Macrobid 100 MG Macrobid 100 MG 03/27/2021 12:00:00 AM EDT 1.0 {capsule} active Macrobid 100 MG eC W1 ([facility]) Cephalexin 500 MG Oral Capsule Cephalexin 500 MG 03/26/2021 12:00:0 0 AM EDT 1.0 {capsule} active Cephalexin 500 MG eCW1 ([facility]) Cephalexin 500 MG Oral Capsule Cephalexin 500 MG 03/26/2021 12:00:0 0 AM EDT 1.0 {capsule} active Cephalexin 500 MG eCW1 ([facility]) Cephalexin 500 MG Oral Capsule Cephalexin 500 MG 03/26/2021 12:00:0 0 AM EDT 1.0 {capsule} active Cephalexin 500 MG eCW1 ([facility]) Cephalexin 500 MG Oral Capsule Cephalexin 500 MG 03/26/2021 12:00:0 0 AM EDT 1.0 {capsule} active Cephalexin 500 MG eCW1 ([facility]) Cephalexin 500 MG Oral Capsule Cephalexin 500 MG 03/26/2021 12:00:0 0 AM EDT 1.0 {capsule} active Cephalexin 500 MG eCW1 ([facility]) Cephalexin 500 MG Oral Capsule Cephalexin 500 MG 03/26/2021 12:00:0 0 AM EDT 1.0 {capsule} active Cephalexin 500 MG eCW1 ([facility]) Cephalexin 500 MG Oral Capsule Cephalexin 500 MG 03/26/2021 12:00:0 0 AM EDT 1.0 {capsule} active Cephalexin 500 MG eCW1 ([facility]) Cephalexin 500 MG Oral Capsule Cephalexin 500 MG 03/26/2021 12:00:0 0 AM EDT 1.0 {capsule} active Cephalexin 500 MG eCW1 ([facility]) Cephalexin 500 MG Oral Capsule Cephalexin 500 MG 03/26/2021 12:00:0 0 AM EDT 1.0 {capsule} active Cephalexin 500 MG eCW1 ([facility]) NITROFURANTOIN, MACROCRYSTALS 25 MG / Ni trofurantoin, Monohydrate 75 MG Oral Capsule [Macrobid] Macrobid 100 MG Macrobid 100 MG 03/21/2021 12:00:00 AM EDT 1.0 {capsule} active Macrobid 100 MG eC W1 ([facility]) NITROFURANTOIN, MACROCRYSTALS 25 MG / Ni trofurantoin, Monohydrate 75 MG Oral Capsule [Macrobid] Macrobid 100 MG Macrobid 100 MG 03/21/2021 12:00:00 AM EDT 1.0 {capsule} active Macrobid 100 MG eC W1 ([facility]) NITROFURANTOIN, MACROCRYSTALS 25 MG / Ni trofurantoin, Monohydrate 75 MG Oral Capsule [Macrobid] Macrobid 100 MG Macrobid 100 MG 03/21/2021 12:00:00 AM EDT 1.0 {capsule} active Macrobid 100 MG eC W1 ([facility]) NITROFURANTOIN, MACROCRYSTALS 25 MG / Ni trofurantoin, Monohydrate 75 MG Oral Capsule [Macrobid] Macrobid 100 MG Macrobid 100 MG 03/21/2021 12:00:00 AM EDT 1.0 {capsule} active Macrobid 100 MG eC W1 ([facility]) NITROFURANTOIN, MACROCRYSTALS 25 MG / Ni trofurantoin, Monohydrate 75 MG Oral Capsule [Macrobid] Macrobid 100 MG Macrobid 100 MG 03/21/2021 12:00:00 AM EDT 1.0 {capsule} active Macrobid 100 MG eC W1 ([facility]) NITROFURANTOIN, MACROCRYSTALS 25 MG / Ni trofurantoin, Monohydrate 75 MG Oral Capsule [Macrobid] Macrobid 100 MG Macrobid 100 MG 03/21/2021 12:00:00 AM EDT 1.0 {capsule} active Macrobid 100 MG eC W1 ([facility]) NITROFURANTOIN, MACROCRYSTALS 25 MG / Ni trofurantoin, Monohydrate 75 MG Oral Capsule [Macrobid] Macrobid 100 MG Macrobid 100 MG 03/21/2021 12:00:00 AM EDT 1.0 {capsule} active Macrobid 100 MG eC W1 ([facility]) NITROFURANTOIN, MACROCRYSTALS 25 MG / Ni trofurantoin, Monohydrate 75 MG Oral Capsule [Macrobid] Macrobid 100 MG Macrobid 100 MG 03/21/2021 12:00:00 AM EDT 1.0 {capsule} active Macrobid 100 MG eC W1 ([facility]) NITROFURANTOIN, MACROCRYSTALS 25 MG / Ni trofurantoin, Monohydrate 75 MG Oral Capsule [Macrobid] Macrobid 100 MG Macrobid 100 MG 03/21/2021 12:00:00 AM EDT 1.0 {capsule} active Macrobid 100 MG eC W1 ([facility]) NITROFURANTOIN, MACROCRYSTALS 25 MG / Ni trofurantoin, Monohydrate 75 MG Oral Capsule [Macrobid] Macrobid 100 MG Macrobid 100 MG 03/21/2021 12:00:00 AM EDT 1.0 {capsule} active Macrobid 100 MG eC W1 ([facility]) NITROFURANTOIN, MACROCRYSTALS 25 MG / Ni trofurantoin, Monohydrate 75 MG Oral Capsule [Macrobid] Macrobid 100 MG Macrobid 100 MG 03/21/2021 12:00:00 AM EDT 1.0 {capsule} active Macrobid 100 MG eC W1 ([facility]) NITROFURANTOIN, MACROCRYSTALS 25 MG / Ni trofurantoin, Monohydrate 75 MG Oral Capsule [Macrobid] Macrobid 100 MG Macrobid 100 MG 03/21/2021 12:00:00 AM EDT 1.0 {capsule} active Macrobid 100 MG eC W1 ([facility]) NITROFURANTOIN, MACROCRYSTALS 25 MG / Ni trofurantoin, Monohydrate 75 MG Oral Capsule [Macrobid] Macrobid 100 MG Macrobid 100 MG 03/21/2021 12:00:00 AM EDT 1.0 {capsule} active Macrobid 100 MG eC W1 ([facility]) NITROFURANTOIN, MACROCRYSTALS 25 MG / Ni trofurantoin, Monohydrate 75 MG Oral Capsule [Macrobid] Macrobid 100 MG Macrobid 100 MG 03/21/2021 12:00:00 AM EDT 1.0 {capsule} active Macrobid 100 MG eC W1 ([facility]) NITROFURANTOIN, MACROCRYSTALS 25 MG / Ni trofurantoin, Monohydrate 75 MG Oral Capsule [Macrobid] Macrobid 100 MG Macrobid 100 MG 03/21/2021 12:00:00 AM EDT 1.0 {capsule} active Macrobid 100 MG eC W1 ([facility]) NITROFURANTOIN, MACROCRYSTALS 25 MG / Ni trofurantoin, Monohydrate 75 MG Oral Capsule [Macrobid] Macrobid 100 MG Macrobid 100 MG 03/19/2021 12:00:00 AM EDT 1.0 {capsule} active Macrobid 100 MG eC W1 ([facility]) NITROFURANTOIN, MACROCRYSTALS 25 MG / Ni trofurantoin, Monohydrate 75 MG Oral Capsule [Macrobid] Macrobid 100 MG Macrobid 100 MG 03/19/2021 12:00:00 AM EDT 1.0 {capsule} active Macrobid 100 MG eC W1 ([facility]) NITROFURANTOIN, MACROCRYSTALS 25 MG / Ni trofurantoin, Monohydrate 75 MG Oral Capsule [Macrobid] Macrobid 100 MG Macrobid 100 MG 03/19/2021 12:00:00 AM EDT 1.0 {capsule} active Macrobid 100 MG eC W1 ([facility]) Fluconazole 150 MG Oral Tablet [Diflucan] Diflucan 150 MG Di flucan 150 MG 03/19/2021 12:00:00 AM EDT 1.0 {tablet} active Diflucan 150 MG eCW1 ([facility]) Fluconazole 150 MG Oral Tablet [Diflucan] Diflucan 150 MG Di flucan 150 MG 03/19/2021 12:00:00 AM EDT 1.0 {tablet} active Diflucan 150 MG eCW1 ([facility]) Fluconazole 150 MG Oral Tablet [Diflucan] Diflucan 150 MG Di flucan 150 MG 03/19/2021 12:00:00 AM EDT 1.0 {tablet} active Diflucan 150 MG eCW1 ([facility]) NITROFURANTOIN, MACROCRYSTALS 25 MG / Ni trofurantoin, Monohydrate 75 MG Oral Capsule [Macrobid] Macrobid 100 MG Macrobid 100 MG 03/19/2021 12:00:00 AM EDT 1.0 {capsule} active Macrobid 100 MG eC W1 ([facility]) NITROFURANTOIN, MACROCRYSTALS 25 MG / Ni trofurantoin, Monohydrate 75 MG Oral Capsule [Macrobid] Macrobid 100 MG Macrobid 100 MG 03/19/2021 12:00:00 AM EDT 1.0 {capsule} active Macrobid 100 MG eC W1 ([facility]) NITROFURANTOIN, MACROCRYSTALS 25 MG / Ni trofurantoin, Monohydrate 75 MG Oral Capsule [Macrobid] Macrobid 100 MG Macrobid 100 MG 03/19/2021 12:00:00 AM EDT 1.0 {capsule} active Macrobid 100 MG eC W1 ([facility]) NITROFURANTOIN, MACROCRYSTALS 25 MG / Ni trofurantoin, Monohydrate 75 MG Oral Capsule [Macrobid] Macrobid 100 MG Macrobid 100 MG 03/19/2021 12:00:00 AM EDT 1.0 {capsule} active Macrobid 100 MG eC W1 ([facility]) Fluconazole 150 MG Oral Tablet [Diflucan] Diflucan 150 MG Di flucan 150 MG 03/19/2021 12:00:00 AM EDT 1.0 {tablet} active Diflucan 150 MG eCW1 ([facility]) Fluconazole 150 MG Oral Tablet [Diflucan] Diflucan 150 MG Di flucan 150 MG 03/19/2021 12:00:00 AM EDT 1.0 {tablet} active Diflucan 150 MG eCW1 ([facility]) NITROFURANTOIN, MACROCRYSTALS 25 MG / Ni trofurantoin, Monohydrate 75 MG Oral Capsule [Macrobid] Macrobid 100 MG Macrobid 100 MG 03/19/2021 12:00:00 AM EDT 1.0 {capsule} active Macrobid 100 MG eC W1 ([facility]) NITROFURANTOIN, MACROCRYSTALS 25 MG / Ni trofurantoin, Monohydrate 75 MG Oral Capsule [Macrobid] Macrobid 100 MG Macrobid 100 MG 03/19/2021 12:00:00 AM EDT 1.0 {capsule} active Macrobid 100 MG eC W1 ([facility]) Fluconazole 150 MG Oral Tablet [Diflucan] Diflucan 150 MG Di flucan 150 MG 03/19/2021 12:00:00 AM EDT 1.0 {tablet} active Diflucan 150 MG eCW1 ([facility]) Fluconazole 150 MG Oral Tablet [Diflucan] Diflucan 150 MG Di flucan 150 MG 03/19/2021 12:00:00 AM EDT 1.0 {tablet} active Diflucan 150 MG eCW1 ([facility]) NITROFURANTOIN, MACROCRYSTALS 25 MG / Ni trofurantoin, Monohydrate 75 MG Oral Capsule [Macrobid] Macrobid 100 MG Macrobid 100 MG 03/19/2021 12:00:00 AM EDT 1.0 {capsule} active Macrobid 100 MG eC W1 ([facility]) NITROFURANTOIN, MACROCRYSTALS 25 MG / Ni trofurantoin, Monohydrate 75 MG Oral Capsule [Macrobid] Macrobid 100 MG Macrobid 100 MG 03/19/2021 12:00:00 AM EDT 1.0 {capsule} active Macrobid 100 MG eC W1 ([facility]) NITROFURANTOIN, MACROCRYSTALS 25 MG / Ni trofurantoin, Monohydrate 75 MG Oral Capsule [Macrobid] Macrobid 100 MG Macrobid 100 MG 03/19/2021 12:00:00 AM EDT 1.0 {capsule} active Macrobid 100 MG eC W1 ([facility]) NITROFURANTOIN, MACROCRYSTALS 25 MG / Ni trofurantoin, Monohydrate 75 MG Oral Capsule [Macrobid] Macrobid 100 MG Macrobid 100 MG 03/19/2021 12:00:00 AM EDT 1.0 {capsule} active Macrobid 100 MG eC W1 ([facility]) NITROFURANTOIN, MACROCRYSTALS 25 MG / Ni trofurantoin, Monohydrate 75 MG Oral Capsule [Macrobid] Macrobid 100 MG Macrobid 100 MG 03/19/2021 12:00:00 AM EDT 1.0 {capsule} active Macrobid 100 MG eC W1 ([facility]) Fluconazole 150 MG Oral Tablet [Diflucan] Diflucan 150 MG Di flucan 150 MG 03/19/2021 12:00:00 AM EDT 1.0 {tablet} active Diflucan 150 MG eCW1 ([facility]) Fluconazole 150 MG Oral Tablet [Diflucan] Diflucan 150 MG Di flucan 150 MG 03/19/2021 12:00:00 AM EDT 1.0 {tablet} active Diflucan 150 MG eCW1 ([facility]) Fluconazole 150 MG Oral Tablet [Diflucan] Diflucan 150 MG Di flucan 150 MG 03/19/2021 12:00:00 AM EDT 1.0 {tablet} active Diflucan 150 MG eCW1 ([facility]) Fluconazole 150 MG Oral Tablet [Diflucan] Diflucan 150 MG Di flucan 150 MG 03/19/2021 12:00:00 AM EDT 1.0 {tablet} active Diflucan 150 MG eCW1 ([facility]) Fluconazole 150 MG Oral Tablet [Diflucan] Diflucan 150 MG Di flucan 150 MG 03/19/2021 12:00:00 AM EDT 1.0 {tablet} active Diflucan 150 MG eCW1 ([facility]) Fluconazole 150 MG Oral Tablet [Diflucan] Diflucan 150 MG Di flucan 150 MG 03/19/2021 12:00:00 AM EDT 1.0 {tablet} active Diflucan 150 MG eCW1 ([facility]) Fluconazole 150 MG Oral Tablet [Diflucan] Diflucan 150 MG Di flucan 150 MG 03/19/2021 12:00:00 AM EDT 1.0 {tablet} active Diflucan 150 MG eCW1 ([facility]) NITROFURANTOIN, MACROCRYSTALS 25 MG / Ni trofurantoin, Monohydrate 75 MG Oral Capsule [Macrobid] Macrobid 100 MG Macrobid 100 MG 03/19/2021 12:00:00 AM EDT 1.0 {capsule} active Macrobid 100 MG eC W1 ([facility]) NITROFURANTOIN, MACROCRYSTALS 25 MG / Ni trofurantoin, Monohydrate 75 MG Oral Capsule [Macrobid] Macrobid 100 MG Macrobid 100 MG 03/19/2021 12:00:00 AM EDT 1.0 {capsule} active Macrobid 100 MG eC W1 ([facility]) Fluconazole 150 MG Oral Tablet [Diflucan] Diflucan 150 MG Di flucan 150 MG 03/19/2021 12:00:00 AM EDT 1.0 {tablet} active Diflucan 150 MG eCW1 ([facility]) Fluconazole 150 MG Oral Tablet [Diflucan] Diflucan 150 MG Di flucan 150 MG 03/19/2021 12:00:00 AM EDT 1.0 {tablet} active Diflucan 150 MG eCW1 ([facility]) benzonatate 100 MG Oral Capsule Benzonatate 03/01/2021 12:00:00 AM EDT ORAL active MEDENT ([facility], [facility]) Amoxicillin 875 MG / Clavulanate 125 MG Oral Tablet Am oxicillin/Clavulanate Potassium 03/01/2021 12:00:00 AM EDT ORAL active MEDENT ([facility], [facility]) Fluconazole 150 MG Oral Tablet [Diflucan] Diflucan 03/01/2021 1 2:00:00 AM EDT ORAL active MEDENT ([facility], [facility]) Turmeric Curcumin 02/14/2021 12:00:00 AM EDT ORAL active MEDENT ([facility]) 24 HR metoprolol succinate 100 MG Extended Release Ora l Tablet Metoprolol Succinate ER 02/14/2021 12:00:00 AM EDT ORAL active MEDENT ([facility]) Chlorthalidone 25 MG Oral Tablet Chlorthalidone 11/27/2020 12:00:00 A M EDT ORAL active [facility] ([facility] Spironolactone 25 MG Oral Tablet Spironolactone 11/27/2020 12:00:00 A M EDT ORAL active [facility] Administer Influenza Virus Vaccine 03/28/2020 12:00:00 AM EDT completed [facility]) Medication administered onsite Hyoscyamine Sulfate 0.125 MG Sublingual Tablet Hyoscyamine S ulfate SL 03/28/2020 12:00:00 AM EDT active MEDENT ([facility]) Dexamethasone 1 MG/ML / Tobramycin 3 MG/ ML Ophthalmic Suspension [Tobradex] TobraDex 0.3-0.1% Ophthalmic Suspension TobraDex 0.3-0.1% Ophthalmic Suspension 10/20/2018 12:00:00 AM EDT aborted dexamethasone 1 MG/ML / tobramycin 3 MG/ML Ophthalmic Suspension [Tobradex] KYLAH (Juan Manuel Garcia MD [facility]) Insurance Providers Payer name Policy type / Coverage type Policy ID Covered alliance party ID Covered alliance party's relationship to jaramillo Policy Jaramillo Plan Information BCBS [facility] Part B [id number] Family Dependent [id number] BCBS [facility] Health Maintenance Organization (HMO) R [id number] Family Dependent R [id number] [employer] [facility] Part B [id number] Family Dependent [id number] EXCELLUS H [id number] Spouse [id number] Medicare [place] Primary [id number] Self 06 [id number] Medicare [place] Primary [id number] Self 06 [id number] MEDICARE A [id number] Self [id number] Medicare Part B Medicare Primary [id number] Self 06 [id number] [place] [id number] .[id number] Self [id number] Medicare Part B Medicare Primary [id number] Self [id number] Medicare (Part B) Medicare Primary [id number] Self [id number] BCBS Federal Medigap Part B [id number] Family Dependent [id number] Medicare (Part B) Medicare Primary [id number] Self [id number] [employer] [place] [employer] Medigap Part B [id number]..[id number] Self R1 [id number] BC BS [facility] FEDERAL B [id number] P [id number] MEDICARE C [id number] S [id number] [employer] [place] [employer] Medigap Part B [id number] 2..1.772586.3.227.99.104.7265.0 Self R1 [id number] [employer] [place] [employer] Medig[employer] Part B [id number] 2..1.418321.3.227.99.104.7265.0 Self [id number] [place] [id number] ..[id number] Self [id number] [place] Primary [id number] .[id number]5.0 Self [id number] [place] [id number] ..[id number] Self 06 [id number] [employer] [facility] [id number] HU2 [id number] [facility]IC[facility] - [facility] [id number] S [id number] [facility] [id number] HU2 [id number] MEDICARE [id number] SP [id number] [id number] [facility] FEDERAL EMPLOYEE PROGRAM [id number] HU2 [id number] [facility] [employer] EMPLOYEE PROGRAM [id number] HU2 [id number] [facility] Other 0 [id number] F amily Dependent Hipolito Shabazz [address] Medicare Part [address] [facility] Other 0 [id number] Self 0 MEDICARE [id number] SP [id number] A [facility] Federal Medigap Part B [id number] Family Dependent [id number] Medicare (Part B) Medicare Primary [id number] Self [id number] [employer] Medigap Part B [id number] Self [id number] [facility] Medigap Part B [id number] Family Dependent [id number] Problems, Conditions, and Diagnoses Code Display Name Description Problem Type Effective Dates Data Source(s) 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 Disturbance in sleep beh avior Problem 02/15/2021 12:00:00 AM EDT [facility] ([facility]) N95.9 Menopausal problem Menopausal problem Problem 12:00:00 AM EDT eCW1 ([facility]) I27.20 Pulmonary hypertension Pulmonary hypertension Problem 11/27/2020 12:00:00 AM EDT MEDENT ([facility]) Surgeries/Procedures Procedure Description Date Indications Data Source(s) OFFICE OUTPATIENT VISIT 25 MINUTES 03/01/2021 12:00:00 AM EDT MED[facility] ([facility]) OFFICE OUTPATIENT VISIT 25 MINUTES 02/15/2021 12:00:00 AM EDT [facility] ([facility]) OFFICE OUTPATIENT VISIT 25 MINUTES 02/01/2021 12:00:00 AM EDT [facility] ([facility]) XTRNL ECG < 48 HR RECORDING 01/30/2021 12:00:00 AM EDT [facility] ([facility]) XTRNL ECG CONTINUOUS RHYTHM PHYS REVIEW&INTERPJ 2020 12:00:00 AM EDT [facility] ([facility]) ECHO TTHRC R-T 2D W/WOM-MODE COMPL SPEC&COLR DOP 12/12 12:00:00 AM EDT [facility] ([facility]) Intermediate Eye Exam Established Patient Intermediate Eye Exam Established Patient 12/05/2020 12:00:00 AM EDT [facility] (Christopher Garcia MD [facility]) ECG ROUTINE ECG W/LEAST 12 LDS W/I&R 11/27/2020 12:00: 00 AM EDT [facility] ([facility]) OFFICE OUTPATIENT VISIT 25 MINUTES 11/27/2020 12:00:00 AM EDT [facility] ([facility]) OFFICE OUTPATIENT VISIT 25 MINUTES 11/14/2020 12:00:00 AM EDT [facility] ([facility]) Results ID Date Data Source URINE CULTURE 03/19/2021 12:00:00 AM EDT eCW1 ([facility]) Name Value Range Interpretation Code Description Data Vianey rce(s) Supporting Document(s) URINE CULTURE eCW1 ([facility]) ID Date Data Source UA URINALYSIS 03/19/2021 12:00:00 AM EDT eCW1 ([facility]) Name Value Range Interpretation Code Description Data Vianey rce(s) Supporting Document(s) UA URINALYSIS eCW1 ([facility]) ID Date Data Source Urinalysis, Complete with Micro 03/19/2021 12:00:00 AM EDT e CW1 ([facility]) Name Value Range Interpretation Code Description Data Vianey rce(s) Supporting Document(s) Microscopic Examination eCW1 ( [facility]) Color of Urine red Urine-Color eCW1 ([facility]) Specific gravity of Urine 1.010 Specific G ravity eCW1 ([facility]) pH of Urine by Test strip 7 pH eCW1 ([facility]) Glucose [Presence] in Urine negative Glucose eCW1 ([facility]) Appearance of Urine clear with clot Appearance eCW1 ([facility]) Urobilinogen [Mass/volume] in Urine by Test strip 1+ Urobilinogen,Semi-Qn eCW1 ([facility]) Hemoglobin [Presence] in Urine by Test strip 3+ Occult Blood eCW1 ([facility]) Protein [Presence] in Urine by Test strip 2+ Protein eCW1 ([facility]) Bilirubin.total [Presence] in Urine by Test strip 2+ Bilirubin eCW1 ([facility]) Ketones [Presence] in Urine by Test strip small Ketones eCW1 ([facility]) Nitrite [Presence] in Urine by Test strip positive Nitrite, Urine eCW1 ([facility]) Leukocyte esterase [Presence] in Urine by Test strip 2+ WBC Esterase eCW1 ([facility]) Urinalysis Gross Exam eCW1 ([facility]) ID Date Data Source [id number] 03/01/2021 12:00:00 AM EDT [facility] Name Value Range Interpretation Code Description Data Vianey rce(s) Supporting Document(s) SARS-CoV2 Rapid Antigen Negative [facility] This lab was reported by [facility]. ID Date Data Source [id number] 02/01/2021 02:43:00 PM EDT [facility] ([facility] [...]
<content></content> Venipuncture Laboratory test result MEDE NT ([facility]) fasting ID Date Data Source [id number] 02/01/2021 02:43:00 PM EDT [facility] ([facility]) Name Value Range Interpretation Code Description Data Vianey rce(s) Supporting Document(s) Clarity of Urine Laboratory test result 0-0 [facility] ([facility]) Color of Urine Laboratory test result ME DENT ([facility]) pH of Urine by Test strip 5.5 4.6-8.0 MEDE NT ([facility]) Specific gravity of Urine 1.015 1.005-1.030 [facility] ([facility]) Glucose [Mass/volume] in Urine Laboratory test result 0-0 [facility] ([facility]) Ketones [Presence] in Serum or Plasma Laboratory test result 0-0 [facility] ([facility]) Protein [Presence] in Urine by Test strip Laboratory test result 0-0 [facility] ([facility]) bilirubin. Laboratory test result 0-0 [facility] ([facility]) Blood. Laboratory test result 0-0 [facility] ([facility]) Nitrite [Moles/volume] in Serum or Plasma Laboratory test result 0-0 [facility] ([facility]) Erythrocytes [#/area] in Urine sediment by Microscopy high power field Laboratory test result 0-2 [facility] ([facility]) Leukocytes. Laboratory test result 0-0 MEDEN T ([facility]) Leukocytes [#/area] in Urine sediment by Microscopy tn gh power field Laboratory test result 0-5 [facility] ([facility]) Epithelial cells [Presence] in Urine sediment by Light microscopy Laboratory test result 0-10 [facility] ([facility]) Bacteria. Laboratory test result 0-0 [facility] ([facility]) ID Date Data Source [id number] 02/01/2021 02:43:00 PM EDT [facility] ([facility]) Name Value Range Interpretation Code Description Data Vianey rce(s) Supporting Document(s) Thyrotropin [Units/volume] in Serum or Plasma 2.050 mIU/ml 0.350-5.50 0 [facility] ([facility]) fasting Thyroxine (T4) free [Mass/volume] in Serum or Plasma 0.98 ng/dL 0.89- 1.80 [facility] ([facility]) fasting ID Date Data Source [id number] 02/01/2021 02:43:00 PM EDT [facility] ([facility]) Name Value Range Interpretation Code Description Data Vianey rce(s) Supporting Document(s) Cholesterol [Mass/volume] in Serum or Plasma 239 mg/dL 0-200 Above high normal MED[facility] ([facility]) Triglyceride [Mass/volume] in Serum or Plasma 121 mg/dL 0-249 [facility] ([facility]) <content>National Cholesterol Education Program (NCEP) Guidelines:</content>
<content>Recommended Range <150 mg/dL</content>
<content></content> Cholesterol in HDL [Mass/volume] in Serum or Plasma 89 mg/dL 40-60 Above high normal [facility] ([facility]) Cholesterol in LDL [Mass/volume] in Serum or Plasma by calcu lation 126 mg/dL 0-130 [facility] ([facility]) VLDL 24 mg/dL 0-28 [facility] ([facility]) Cardiac Risk 2.69 Ratio 3.7-5.3 Below low normal [facility] ([facility]) ID Date Data Source [id number] 02/01/2021 02:43:00 PM EDT [facility] ([facility]) Name Value Range Interpretation Code Description Data Vianey rce(s) Supporting Document(s) Erythrocytes [#/volume] in Blood by Automated count 4.14 x10E6/uL 3.9 -5.4 [facility] ([facility]) WBC. 5.32 x10E3/uL 4.2-12.0 [facility] ([facility]) Hemoglobin [Mass/volume] in Blood 13.5 g/dL 12.0-16.0 [facility] ([facility]) Hematocrit [Volume Fraction] of Blood by Automated count 41.2 % 3 6-47 [facility] ([facility]) MCHC 32.7 g/dL 32-36 [facility] MCV 99.6 fL 80-98 Above high normal [facility] ([facility]) MCH 32.5 pg 27-33 [facility] ([facility]) Platelets [#/volume] in Blood by Automated count 287 x10E3/uL 135-420 [facility] ([facility]) RDW 13.6 % 11.2-15.2 [facility] ([facility]) %Lym 32.1 % 10.0-45.2 [facility] ([facility]) % Charles 54.7 % 41.0-80.0 [facility] ([facility]) MPV 7.9 fL 7.0-12.3 [facility] ([facility]) Eosinophils [#/volume] in Blood by Automated count 6.7 % 0.0-8.0 [facility] ([facility]) %[place] 6.2 % 2.0-13.0 [facility] ([facility]) %Baso 0.2 % 0.0-3.0 [facility] ([facility]) [place] 0.3 x10E3/uL 0.0-1.0 [facility]) Neut 2.9 x10E3/uL 2.0-8.1 [facility] ([facility]) Lymp 1.7 x10E3/uL 0.6-3.1 [facility] Eos 0.4 x10E3/uL 0.0-0.6 [facility]) Baso 0.0 x10E3/uL 0.0-0.2 [facility]) ID Date Data Source [id number] 02/01/2021 02:43:00 PM EDT [facility] ([facility]) Name Value Range Interpretation Code Description Data Vianey rce(s) Supporting Document(s) Glucose [Mass/volume] in Serum or Plasma 89 mg/dL 74-106 [facility] ([facility]) [place] Diabetes Association (ADA) Recommended Range is 65-99 mg/dL Creatinine [Mass/volume] in Serum or Plasma 0.9 mg/dL 0.5-1.3 [facility] ([facility]) Urea nitrogen [Moles/volume] in Serum or Plasma 23 mg/dL 6-20 Above high normal [facility] ([facility]) Sodium [Moles/volume] in Serum or Plasma 139 mmol/L 136-145 [facility] ([facility]) Potassium [Moles/volume] in Serum or Plasma 4.5 mmol/L 3.5-5.3 [facility] ([facility]) Chloride [Moles/volume] in Serum or Plasma 102 mmol/L 98-107 [facility] ([facility]) Carbon dioxide, total [Moles/volume] in Serum or Plasma 27 meq/L 20 -31 [facility] ([facility]) Anion Gap 10 mmol/L 7-16 [facility] ([facility]) eGFR-female 61 mL/m/1.73m [facility] ([facility]) eGFR-Aa female 74 mL/m/1.73m [facility] ([facility]) <content>Normal Kidney Function or Mild Disease GFR >59 mL/min/1.73m2</content>
<content>Chronic Kidney Disease GFR 15-59 mL/min/1.73m2</content>
<content>Renal Failure GFR <15 mL/min/1.73m2</content>
<content></content> Alanine aminotransferase [Enzymatic activity/volume] in Seru m or Plasma 24 U/L 4-36 [facility] ([facility]) Effective 12/21/2016: [facility] has indicated interference with the drugs sulfasalazine and sulfapyridine. They suggest collection should occur prior to drug administration due to falsely depressed results. Alkaline phosphatase [Enzymatic activity/volume] in Serum or Plasma 53 U/L 46-116 [facility] ([facility]) Aspartate aminotransferase [Enzymatic activity/volume] in Serum or Plasma 29 U/L 8-33 [facility] ([facility]) Bilirubin.total [Mass/volume] in Serum or Plasma 0.4 mg/dL 0.3-1.2 [facility] ([facility]) Protein [Mass/volume] in Serum or Plasma 7.6 g/dL 6.4-8.3 [facility] ([facility]) Results may reflect a potential interfer ence in Total Protein results in patients receiving dextran as blood volume expanders. Albumin [Mass/volume] in Serum or Plasma 4.7 g/dL 3.6-5.1 [facility] ([facility]) Globulin [Mass/volume] in Serum by calculation 2.9 g/dL 1.9-3.7 [facility] ([facility]) Albumin/Globulin [Mass Ratio] in Serum or Plasma 1.6 Ratio 1.0-2.0 [facility] ([facility]) Calcium [Mass/volume] in Serum or Plasma 9.8 mg/dL 8.9-10.5 [facility] ([facility]) ID Date Data Source [id number] 02/01/2021 10:18:00 AM EDT MEDENT ([facility]) Name Value Range Interpretation Code Description Data Vianey rce(s) Supporting Document(s) Triglycerides 121 [facility] ([facility]) Cholesterol 239 0-200 [facility] ([facility]) HDL 89 40-60 [facility] Chol/HDL Ratio Laboratory test result [facility] ([facility]) Cholesterol in LDL [Mass/volume] in Serum or Plasma by calculation 12 6 [facility] ([facility]) ID Date Data Source [id number] 02/01/2021 10:18:00 AM EDT MEDENT ([facility]) Name Value Range Interpretation Code Description Data Vianey rce(s) Supporting Document(s) Alanine aminotransferase [Enzymatic activity/volume] in Serum or Pl asma 24 [facility] ([facility]) Albumin [Mass/volume] in Serum or Plasma 4.7 [facility] ([facility]) Carbon dioxide, total [Moles/volume] in Serum or Plasma 27 [facility] ([facility]) Calcium [Mass/volume] in Serum or Plasma 9.8 [facility] ([facility]) Alkaline phosphatase [Enzymatic activity/volume] in Serum or Plasma 5 3 [facility] ([facility]) Chloride [Moles/volume] in Serum or Plasma 102 [facility] ([facility]) Potassium [Moles/volume] in Serum or Plasma 4.5 [facility] ([facility]) Protein [Mass/volume] in Serum or Plasma 7.6 [facility] ([facility]) Sodium 139 [facility] ([facility]) Aspartate aminotransferase [Enzymatic activity/volume] in Serum or Plasma 29 [facility] ([facility]) Glucose 89 74-106 [facility] ([facility]) Urea nitrogen [Mass/volume] in Serum or Plasma 23 [facility] ([facility]) Creatinine For GFR 0.9 [facility] ([facility]) ID Date Data Source [id number] 02/01/2021 10:18:00 AM EDT [facility] Name Value Range Interpretation Code Description Data Vianey rce(s) Supporting Document(s) White Blood Count 5.32 4.2-12.0 [facility] ([facility]) Platelets 287 135-420 [facility] ([facility]) Red Blood Count 4.14 3.9-5.4 [facility] ([facility]) Hemoglobin 13.5 12.0-16.0 [facility] ([facility]) Hematocrit 41.2 36-47 [facility] ([facility]) ID Date Data Source [id number] 12/18/2020 10:20:00 AM EDT [facility] Name Value Range Interpretation Code Description Data Vianey rce(s) Supporting Document(s) Natriuretic peptide.B prohormone N-Terminal [Mass/volu me] in Serum or Plasma 403 pg/mL [facility] ([facility]) ID Date Data Source [id number] 12/18/2020 10:20:00 AM EDT [facility] Name Value Range Interpretation Code Description Data Vianey rce(s) Supporting Document(s) Glucose, Fasting 92 mg/dL 70-100 [facility] ([facility]) Blood Urea Nitrogen 18 mg/dL 7-18 [facility] ([facility]) Creatinine For GFR 0.81 mg/dL 0.55-1.30 [facility] ([facility]) Glomerular Filtration Rate Laboratory test result [facility] ([facility]) <content>Units are mL/min/1.73 m2</content>
<content></content>
<content>Chronic Kidney Disease Staging per NKF:</content>
<content></content>
<content>Stage I & II GFR >=60 Normal to Mildly Decreased</content>
<content>Stage III GFR 30- 59 Moderately Decreased</content>
<content>Stage IV GFR 15-29 Severely Decreased</content>
<content>Stage V GFR <15 Very Little GFR Left</content>
<content>ESRD GFR <15 on [employer] CHALKER</content>
<content></content> Chloride Level 106 meq/L 98-107 [facility] ([facility]) Sodium Level 139 meq/L 136-145 [facility] ([facility]) Potassium Serum 4.7 meq/L 3.5-5.1 [facility] ([facility]) Anion Gap 4 meq/L 8-16 [facility] Carbon Dioxide Level 29 meq/L 21-32 [facility] ([facility]) Calcium Level 9.0 mg/dL 8.8-10.2 [facility] ([facility]) Phosphorus Level 3.3 mg/dL 2.5-4.9 [facility] ([facility]) Albumin 3.8 GM/DL 3.2-5.2 [facility] ID Date Data Source [id number] 11/14/2020 12:01:00 PM EDT [facility]) Name Value Range Interpretation Code Description Data Vianey rce(s) Supporting Document(s) Glucose mean value [Mass/volume] in Blood Estimated fr om glycated hemoglobin 120 mg/dL [facility] ([facility]) The Estimated Average Glucose is a calcu lation of the average glucose over the last 120 days including non-fasting as well as fasting levels. Hemoglobin A1c/Hemoglobin.total in Blood 5.8 % 3.6-6.9 [facility] ([facility]) <content>Hgb A1c Interpretation:</conten t>
<content><5.8% - Non- diabetic</content>
<content>>6.5% - Diabetic</content>
<content><7.0% - ADA diabetic treatment goal</content>
<content></content> Venipuncture Laboratory test result MEDE NT ([facility]) ID Date Data Source [id number] 11/14/2020 12:01:00 PM EDT [facility] Name Value Range Interpretation Code Description Data Vianey rce(s) Supporting Document(s) Triglyceride [Mass/volume] in Serum or Plasma 71 mg/dL 0-249 [facility] ([facility]) <content>National Cholesterol Education Program (NCEP) Guidelines:</content>
<content>Recommended Range <150 mg/dL</content>
<content></content> Cholesterol [Mass/volume] in Serum or Plasma 210 mg/dL 0-200 Above high normal [facility] ([facility]) Cholesterol in HDL [Mass/volume] in Serum or Plasma 90 mg/dL 40-60 Above high normal [facility] ([facility]) Cholesterol in LDL [Mass/volume] in Serum or Plasma by calcu lation 106 mg/dL 0-130 [facility] ([facility]) VLDL 14 mg/dL 0-28 [facility]) Cardiac Risk 2.33 Ratio 3.7-5.3 Below low normal [facility] ([facility]) ID Date Data Source [id number] 11/14/2020 12:01:00 PM EDT MEDENT ([facility]) Name Value Range Interpretation Code Description Data Vianey rce(s) Supporting Document(s) Urea nitrogen [Moles/volume] in Serum or Plasma 19 mg/dL 6-20 [facility] ([facility]) Glucose [Mass/volume] in Serum or Plasma 96 mg/dL 74-106 [facility] ([facility]) [place] Diabetes Association (ADA) Recommended Range is 65-99 mg/dL Sodium [Moles/volume] in Serum or Plasma 140 mmol/L 136-145 [facility] ([facility]) Creatinine [Mass/volume] in Serum or Plasma 0.8 mg/dL 0.5-1.3 [facility] ([facility]) Potassium [Moles/volume] in Serum or Plasma 4.7 mmol/L 3.5-5.3 [facility] ([facility]) Chloride [Moles/volume] in Serum or Plasma 105 mmol/L 98-107 [facility] ([facility]) Anion Gap 7 mmol/L 7-16 [facility] Carbon dioxide, total [Moles/volume] in Serum or Plasma 28 meq/L 20 -31 [facility] ([facility]) eGFR-female 70 mL/m/1.73m [facility] ([facility]) eGFR-Aa female 85 mL/m/1.73m [facility] ([facility]) <content>Normal Kidney Function or Mild Disease GFR >59 mL/min/1.73m2</content>
<content>Chronic Kidney Disease GFR 15-59 mL/min/1.73m2</content>
<content>Renal Failure GFR <15 mL/min/1.73m2</content>
<content></content> Alkaline phosphatase [Enzymatic activity/volume] in Serum or Plasma 53 U/L 46-116 [facility] ([facility]) Alanine aminotransferase [Enzymatic activity/volume] in Seru m or Plasma 20 U/L 4-36 [facility]) Effective 12/21/2016: [facility]inted has indicated interference with the drugs sulfasalazine and sulfapyridine. They suggest collection should occur prior to drug administration due to falsely depressed results. Aspartate aminotransferase [Enzymatic activity/volume] in Serum or Plasma 23 U/L 8-33 [facility]) Bilirubin.total [Mass/volume] in Serum or Plasma 0.7 mg/dL 0.3-1.2 [facility] ([facility]) Protein [Mass/volume] in Serum or Plasma 6.8 g/dL 6.4-8.3 [facility] ([facility]) Results may reflect a potential interfer ence in Total Protein results in patients receiving dextran as blood volume expanders. Albumin [Mass/volume] in Serum or Plasma 4.4 g/dL 3.6-5.1 [facility] ([facility]) Albumin/Globulin [Mass Ratio] in Serum or Plasma 1.8 Ratio 1.0-2.0 [facility]) Globulin [Mass/volume] in Serum by calculation 2.4 g/dL 1.9-3.7 [facility] ([facility]) Calcium [Mass/volume] in Serum or Plasma 9.9 mg/dL 8.9-10.5 [facility]) ID Date Data Source [id number] 11/14/2020 08:58:00 AM EDT [facility] ([facility]) Name Value Range Interpretation Code Description Data Vianey rce(s) Supporting Document(s) Cholesterol 210 [facility] ([facility]) Triglycerides 71 [facility] ([facility]) HDL 90 [facility] Cholesterol in LDL [Mass/volume] in Serum or Plasma by calculation 10 6 [facility] ([facility]) Chol/HDL Ratio 2.33 [facility] ([facility]) ID Date Data Source [id number] 11/14/2020 08:58:00 AM EDT [facility] ([facility]) Name Value Range Interpretation Code Description Data Vianey rce(s) Supporting Document(s) Albumin [Mass/volume] in Serum or Plasma 4.4 [facility] ([facility]) Alanine aminotransferase [Enzymatic activity/volume] in Serum or Pl asma 20 [facility] ([facility]) Calcium [Mass/volume] in Serum or Plasma 9.9 [facility] ([facility]) Carbon dioxide, total [Moles/volume] in Serum or Plasma 28 [facility] ([facility]) Chloride [Moles/volume] in Serum or Plasma 105 [facility] ([facility]) Alkaline phosphatase [Enzymatic activity/volume] in Serum or Plasma 5 3 [facility] ([facility]) Potassium [Moles/volume] in Serum or Plasma 4.7 [facility] ([facility]) Protein [Mass/volume] in Serum or Plasma 6.8 [facility] ([facility]) Sodium 140 [facility] ([facility]) Urea nitrogen [Mass/volume] in Serum or Plasma 19 [facility] ([facility]) Aspartate aminotransferase [Enzymatic activity/volume] in Serum or Plasma 23 [facility] ([facility]) Creatinine For GFR 0.8 [facility] ([facility]) Glucose 96 [facility] ([facility] ID Date Data Source [id number] 03/28/2020 04:02:00 PM EDT [facility] ([facility]) Name Value Range Interpretation Code Description Data Vianey rce(s) Supporting Document(s) Hemoglobin A1c/Hemoglobin.total in Blood 6.0 % 3.6-6.9 [facility] ([facility]) <content>Hgb A1c Interpretation:</conten t>
<content><5.8% - Non- diabetic</content>
<content>>6.5% - Diabetic</content>
<content><7.0% - ADA diabetic treatment goal</content>
<content></content> Glucose mean value [Mass/volume] in Blood Estimated fr om glycated hemoglobin 126 mg/dL [facility] The Estimated Average Glucose is a calcu lation of the average glucose over the last 120 days including non-fasting as well as fasting levels. Vitamin D+Metabolites [Mass/volume] in Serum or Plasma 65.04 ng/mL 30 -100 [facility] ([facility]) <content>Recommended Levels for Circulat ing 25-hydroxy Vitamin D:</content>
<content>Vitamin D Status 25-OH Vitamin D Test Result</content>
<content>Deficient <10ng/mL</content>
<content>Insufficient 10- 29ng/mL</content>
<content>Sufficient 30-100ng/mL</content>
<content>Potential Intoxication >100ng/mL</content>
<content>A pediatric reference range has not been established using this method.</content>
<content></content> Venipuncture Laboratory test result [facility] ([facility]) ID Date Data Source [id number] 03/28/2020 04:02:00 PM EDT [facility] ([facility]) Name Value Range Interpretation Code Description Data Vianey rce(s) Supporting Document(s) Triglyceride [Mass/volume] in Serum or Plasma 213 mg/dL 0-249 [facility] ([facility]) <content>National Cholesterol Education Program (NCEP) Guidelines:</content>
<content>Recommended Range <150 mg/dL</content>
<content></content> Cholesterol in HDL [Mass/volume] in Serum or Plasma 91 mg/dL 40-60 Above high normal [facility] ([facility]) Cholesterol [Mass/volume] in Serum or Plasma 214 mg/dL 0-200 Above high normal [facility] ([facility]) VLDL 43 mg/dL 0-28 Above high normal [facility] ([facility]) Cholesterol in LDL [Mass/volume] in Serum or Plasma by calcu lation 80 mg/dL 0-130 [facility] ([facility]) Cardiac Risk 2.35 Ratio 3.7-5.3 Below low normal [facility] ([facility]) ID Date Data Source [id number] 03/28/2020 04:02:00 PM EDT [facility] ([facility]) Name Value Range Interpretation Code Description Data Vianey rce(s) Supporting Document(s) Glucose [Mass/volume] in Serum or Plasma 96 mg/dL 74-106 [facility] ([facility]) [employer] (ADA) Recommended Range is 65-99 mg/dL Urea nitrogen [Moles/volume] in Serum or Plasma 27 mg/dL 6-20 Above high normal [facility] ([facility]) Creatinine [Mass/volume] in Serum or Plasma 1.0 mg/dL 0.5-1.3 [facility] ([facility]) Sodium [Moles/volume] in Serum or Plasma 141 mmol/L 136-145 [facility] ([facility]) Chloride [Moles/volume] in Serum or Plasma 104 mmol/L 98-107 [facility] ([facility]) Carbon dioxide, total [Moles/volume] in Serum or Plasma 28 meq/L 20 -31 [facility] ([facility]) Potassium [Moles/volume] in Serum or Plasma 5.0 mmol/L 3.5-5.3 [facility] ([facility]) Anion Gap 9 mmol/L 7-16 [facility] ([facility]) eGFR-female 54 mL/m/1.73m [facility] ([facility]) eGFR-Aa female 66 mL/m/1.73m [facility] ([facility]) <content>Normal Kidney Function or Mild Disease GFR >59 mL/min/1.73m2</content>
<content>Chronic Kidney Disease GFR 15-59 mL/min/1.73m2</content>
<content>Renal Failure GFR <15 mL/min/1.73m2</content>
<content></content> Alkaline phosphatase [Enzymatic activity/volume] in Serum or Plasma 56 U/L 46-116 [facility] ([facility]) Alanine aminotransferase [Enzymatic activity/volume] in Seru m or Plasma 15 U/L 4-36 [facility] ([facility]) Effective 12/21/2016: Minted has indicated interference with the drugs sulfasalazine and sulfapyridine. They suggest collection should occur prior to drug administration due to falsely depressed results. Bilirubin.total [Mass/volume] in Serum or Plasma 0.3 mg/dL 0.3-1.2 [facility] ([facility]) Aspartate aminotransferase [Enzymatic activity/volume] in Serum or Plasma 22 U/L 8-33 [facility] Protein [Mass/volume] in Serum or Plasma 6.7 g/dL 6.4-8.3 [facility] ([facility]) Results may reflect a potential interfer ence in Total Protein results in patients receiving dextran as blood volume expanders. Albumin [Mass/volume] in Serum or Plasma 4.4 g/dL 3.6-5.1 [facility] ([facility]) Globulin [Mass/volume] in Serum by calculation 2.3 g/dL 1.9-3.7 [facility] ([facility]) Albumin/Globulin [Mass Ratio] in Serum or Plasma 1.9 Ratio 1.0-2.0 [facility] ([facility]) Calcium [Mass/volume] in Serum or Plasma 9.7 mg/dL 8.9-10.5 [facility] ([facility]) Procedure Social History Code Duration Value Status Description Data Source(s ) Smoking 02/01/2021 12:00:00 AM EDT Patient has never smoked co mpleted Patient has never smoked [facility] ([facility]) Smoking 12/05/2020 01:46:11 PM EDT Never smoked tobacco (findi ng) completed Never smoked tobacco (finding) [facility] (Juan Manuel Garcia MD [facility]) Smoking 11/15/2020 12:00:00 AM EDT Never Smoker completed Never S moker eCW1 ([facility]) Smoking 11/15/2020 12:00:00 AM EDT Never Smoker completed Never S moker eCW1 ([facility]) Smoking 11/15/2020 12:00:00 AM EDT Never Smoker completed Never S moker eCW1 ([facility]) Smoking 11/15/2020 12:00:00 AM EDT Never Smoker completed Never S moker eCW1 ([facility]) Smoking 11/15/2020 12:00:00 AM EDT Never Smoker completed Never S moker eCW1 ([facility]) Smoking 11/15/2020 12:00:00 AM EDT Never Smoker completed Never S moker eCW1 ([facility]) Smoking 11/15/2020 12:00:00 AM EDT Never Smoker completed Never S moker eCW1 ([facility]) Smoking 11/15/2020 12:00:00 AM EDT Never Smoker completed Never S moker eCW1 ([facility]) Smoking 11/15/2020 12:00:00 AM EDT Never Smoker completed Never S moker eCW1 ([facility]) Smoking 11/15/2020 12:00:00 AM EDT Never Smoker completed Never S moker eCW1 ([facility]) Smoking 11/15/2020 12:00:00 AM EDT Never Smoker completed Never S moker eCW1 ([facility]) Smoking 11/15/2020 12:00:00 AM EDT Never Smoker completed Never S moker eCW1 ([facility]) Smoking 11/15/2020 12:00:00 AM EDT Never Smoker completed Never S moker eCW1 ([facility]) Smoking 11/15/2020 12:00:00 AM EDT Never Smoker completed Never S moker eCW1 ([facility]) Smoking 11/15/2020 12:00:00 AM EDT Never Smoker completed Never S moker eCW1 ([facility]) Smoking 11/15/2020 12:00:00 AM EDT Never Smoker completed Never S moker eCW1 ([facility]) Smoking 11/15/2020 12:00:00 AM EDT Never Smoker completed Never S moker eCW1 ([facility]) Smoking 11/15/2020 12:00:00 AM EDT Never Smoker completed Never S moker eCW1 ([facility]) Smoking 11/15/2020 12:00:00 AM EDT Never Smoker completed Never S moker eCW1 ([facility]) Vital Signs ID Date Data Source UNK Name Value Range Interpretation Code Description Data Source(s) Heart rate 71 /min 71 /min [facility] ([facility], [facility]) Systolic blood pressure 160 mm[Hg] 160 mm[Hg] [facility] ([facility], [facility]) Diastolic blood pressure 84 mm[Hg] 84 mm[Hg] [facility] ([facility], [facility]) Respiratory rate 18 /min 18 /min [facility] ( [facility], [facility]) Oxygen saturation in Arterial blood by Pulse oximetry 98 % 98 % [facility] ([facility], [facility]) Body temperature 97.1 [degF] 97.1 [degF] [facility] ([facility], [facility]) Body weight 162.00 [lb_av] 162.00 [lb_av] [facility] T ([facility], [facility]) Body height 66 [in_i] 66 [in_i] [facility] ([facility]) 5'6" Body mass index (BMI) [Ratio] 26.1 kg/m2 26.1 k g/m2 [facility] ([facility], [facility]) Body height 65 [in_i] 65 [in_i] [facility] ([facility] 5'5" Body weight 164.00 [lb_av] 164.00 [lb_av] [facility] T ([facility]) Body mass index (BMI) [Ratio] 27.3 kg/m2 27.3 k g/m2 [facility] ([facility]) Systolic blood pressure--sitting 118 mm[Hg] 118 mm[Hg] [facility] ([facility]) Ra, medium cuff Diastolic blood pressure--sitting 70 mm[Hg] 70 mm[Hg] [facility] ([facility]) Ra, medium cuff Heart rate 60 /min 60 /min [facility] ([facility]) Diastolic blood pressure 72 mm[Hg] 72 mm[Hg] [facility] ([facility]) Body height 66.00 [in_i] 66.00 [in_i] [facility] ([facility]) 5'6" Body weight 165.00 [lb_av] 165.00 [lb_av] [facility] T ([facility]) Body mass index (BMI) [Ratio] 26.6 kg/m2 26.6 k g/m2 [facility] ([facility]) Systolic blood pressure 116 mm[Hg] 116 mm[Hg] M [facility]ENT ([facility]) Body temperature 96.9 [degF] 96.9 [degF] [facility] ([facility]) Body temperature 36.1 Amina 36.1 Amina [facility] ( [facility]) Respiratory rate 16 /min 16 /min [facility] ( [facility]) Heart rate 60 /min 60 /min [facility] ([facility] regular Body height 65 [in_i] 65 [in_i] [facility] ([facility] 5'5" Respiratory rate 16 /min 16 /min [facility] ( [facility]) Body weight 164.00 [lb_av] 164.00 [lb_av] [facility] ([facility]) Systolic blood pressure--sitting 152 mm[Hg] 152 mm[Hg] [facility] ([facility]) Medium cuff, Ra Diastolic blood pressure--sitting 78 mm[Hg] 78 mm[Hg] [facility] ([facility]) Medium cuff, Ra Systolic blood pressure--supine 152 mm[Hg] 152 mm[Hg] [facility] ([facility]) Body mass index (BMI) [Ratio] 27.3 kg/m2 27.3 k g/m2 [facility] ([facility]) Diastolic blood pressure--supine 76 mm[Hg] 76 mm[Hg] [facility] ([facility]) Body mass index (BMI) [Ratio] 27.42 kg/m2 27.42 kg/m2 eCW1 ([facility]) Body weight 164.8 [lb_av] 164.8 [lb_av] eCW1 ([facility] Body height 65 [in_i] 65 [in_i] eCW1 ([facility]) Diastolic blood pressure 70 mm[Hg] 70 mm[Hg] eCW1 ([facility]) Systolic blood pressure 126 mm[Hg] 126 mm[Hg] e CW1 ([facility]) Diastolic blood pressure 72 mm[Hg] 72 mm[Hg] [facility] ([facility]) Body weight 164.00 [lb_av] 164.00 [lb_av] [facility] T ([facility]) Body temperature 36.3 Amina 36.3 Amina [facility] ( [facility]) Body height 66.00 [in_i] 66.00 [in_i] [facility] ([facility]) 5'6" Body mass index (BMI) [Ratio] 26.5 kg/m2 26.5 k g/m2 [facility] ([facility]) Systolic blood pressure 140 mm[Hg] 140 mm[Hg] M [facility] ([facility]) Heart rate 58 /min 58 /min [facility] ([facility]) Body temperature 97.3 [degF] 97.3 [degF] [facility] ([facility]) Oxygen saturation in Arterial blood by Pulse oximetry 95 % 95 % [facility] ([facility]) Body height 66 [in_i] 66 [in_i] [facility] ([facility]) 5'6" Body weight 166.00 [lb_av] 166.00 [lb_av] [facility] T ([facility]) Body mass index (BMI) [Ratio] 26.8 kg/m2 26.8 k g/m2 [facility] ([facility]) Systolic blood pressure 120 mm[Hg] 120 mm[Hg] M [facility] ([facility]) Diastolic blood pressure 80 mm[Hg] 80 mm[Hg] [facility] ([facility]) Heart rate 60 /min 60 /min [facility] ([facility]) Body temperature 97.7 [degF] 97.7 [degF] [facility] ([facility]) Body temperature 36.5 Amina 36.5 Amina [facility] ( [facility]) Respiratory rate 16 /min 16 /min [facility] ( [facility]) Patient Treatment Plan of Care Planned Activity Planned Date Details Description Data Source (s) Fluconazole 100 MG Oral Tablet [Diflucan] 03/29/2021 12:00:00 AM ED T eCW1 ([facility]) Fluconazole 100 MG Oral Tablet [Diflucan] 03/29/2021 12:00:00 AM ED T eCW1 ([facility]) Fluconazole 100 MG Oral Tablet [Diflucan] 03/29/2021 12:00:00 AM ED T eCW1 ([facility]) Fluconazole 100 MG Oral Tablet [Diflucan] 03/29/2021 12:00:00 AM ED T eCW1 ([facility]) Fluconazole 100 MG Oral Tablet [Diflucan] 03/29/2021 12:00:00 AM ED T eCW1 ([facility]) NITROFURANTOIN, MACROCRYSTALS 25 MG / Ni trofurantoin, Monohydrate 75 MG Oral Capsule [Macrobid] 03/27/2021 12:00:00 AM EDT eC W1 ([facility]) NITROFURANTOIN, MACROCRYSTALS 25 MG / Ni trofurantoin, Monohydrate 75 MG Oral Capsule [Macrobid] 03/27/2021 12:00:00 AM EDT eC W1 ([facility]) NITROFURANTOIN, MACROCRYSTALS 25 MG / Ni trofurantoin, Monohydrate 75 MG Oral Capsule [Macrobid] 03/27/2021 12:00:00 AM EDT eC W1 ([facility]) NITROFURANTOIN, MACROCRYSTALS 25 MG / Ni trofurantoin, Monohydrate 75 MG Oral Capsule [Macrobid] 03/27/2021 12:00:00 AM EDT eC W1 ([facility]) NITROFURANTOIN, MACROCRYSTALS 25 MG / Ni trofurantoin, Monohydrate 75 MG Oral Capsule [Macrobid] 03/27/2021 12:00:00 AM EDT eC W1 ([facility]) NITROFURANTOIN, MACROCRYSTALS 25 MG / Ni trofurantoin, Monohydrate 75 MG Oral Capsule [Macrobid] 03/27/2021 12:00:00 AM EDT eC W1 ([facility]) NITROFURANTOIN, MACROCRYSTALS 25 MG / Ni trofurantoin, Monohydrate 75 MG Oral Capsule [Macrobid] 03/27/2021 12:00:00 AM EDT eC W1 ([facility]) Cephalexin 500 MG Oral Capsule 03/26/2021 12:00:00 AM EDT eCW1 ([facility]) Cephalexin 500 MG Oral Capsule 03/26/2021 12:00:00 AM EDT eCW1 ([facility]) Cephalexin 500 MG Oral Capsule 03/26/2021 12:00:00 AM EDT eCW1 ([facility]) Cephalexin 500 MG Oral Capsule 03/26/2021 12:00:00 AM EDT eCW1 ([facility]) Cephalexin 500 MG Oral Capsule 03/26/2021 12:00:00 AM EDT eCW1 ([facility]) Cephalexin 500 MG Oral Capsule 03/26/2021 12:00:00 AM EDT eCW1 ([facility]) Cephalexin 500 MG Oral Capsule 03/26/2021 12:00:00 AM EDT eCW1 ([facility]) Cephalexin 500 MG Oral Capsule 03/26/2021 12:00:00 AM EDT eCW1 ([facility]) Cephalexin 500 MG Oral Capsule 03/26/2021 12:00:00 AM EDT eCW1 ([facility]) NITROFURANTOIN, MACROCRYSTALS 25 MG / Ni trofurantoin, Monohydrate 75 MG Oral Capsule [Macrobid] 03/21/2021 12:00:00 AM EDT eC W1 ([facility]) NITROFURANTOIN, MACROCRYSTALS 25 MG / Ni trofurantoin, Monohydrate 75 MG Oral Capsule [Macrobid] 03/21/2021 12:00:00 AM EDT eC W1 ([facility]) NITROFURANTOIN, MACROCRYSTALS 25 MG / Ni trofurantoin, Monohydrate 75 MG Oral Capsule [Macrobid] 03/21/2021 12:00:00 AM EDT eC W1 ([facility]) NITROFURANTOIN, MACROCRYSTALS 25 MG / Ni trofurantoin, Monohydrate 75 MG Oral Capsule [Macrobid] 03/21/2021 12:00:00 AM EDT eC W1 ([facility]) NITROFURANTOIN, MACROCRYSTALS 25 MG / Ni trofurantoin, Monohydrate 75 MG Oral Capsule [Macrobid] 03/21/2021 12:00:00 AM EDT eC W1 ([facility]) NITROFURANTOIN, MACROCRYSTALS 25 MG / Ni trofurantoin, Monohydrate 75 MG Oral Capsule [Macrobid] 03/21/2021 12:00:00 AM EDT eC W1 ([facility]) NITROFURANTOIN, MACROCRYSTALS 25 MG / Ni trofurantoin, Monohydrate 75 MG Oral Capsule [Macrobid] 03/21/2021 12:00:00 AM EDT eC W1 ([facility]) NITROFURANTOIN, MACROCRYSTALS 25 MG / Ni trofurantoin, Monohydrate 75 MG Oral Capsule [Macrobid] 03/21/2021 12:00:00 AM EDT eC W1 ([facility]) NITROFURANTOIN, MACROCRYSTALS 25 MG / Ni trofurantoin, Monohydrate 75 MG Oral Capsule [Macrobid] 03/21/2021 12:00:00 AM EDT eC W1 ([facility]) NITROFURANTOIN, MACROCRYSTALS 25 MG / Ni trofurantoin, Monohydrate 75 MG Oral Capsule [Macrobid] 03/21/2021 12:00:00 AM EDT eC W1 ([facility]) NITROFURANTOIN, MACROCRYSTALS 25 MG / Ni trofurantoin, Monohydrate 75 MG Oral Capsule [Macrobid] 03/21/2021 12:00:00 AM EDT eC W1 ([facility]) NITROFURANTOIN, MACROCRYSTALS 25 MG / Ni trofurantoin, Monohydrate 75 MG Oral Capsule [Macrobid] 03/21/2021 12:00:00 AM EDT eC W1 ([facility]) NITROFURANTOIN, MACROCRYSTALS 25 MG / Ni trofurantoin, Monohydrate 75 MG Oral Capsule [Macrobid] 03/21/2021 12:00:00 AM EDT eC W1 ([facility]) NITROFURANTOIN, MACROCRYSTALS 25 MG / Ni trofurantoin, Monohydrate 75 MG Oral Capsule [Macrobid] 03/21/2021 12:00:00 AM EDT eC W1 ([facility]) NITROFURANTOIN, MACROCRYSTALS 25 MG / Ni trofurantoin, Monohydrate 75 MG Oral Capsule [Macrobid] 03/21/2021 12:00:00 AM EDT eC W1 ([facility]) Fluconazole 150 MG Oral Tablet [Diflucan] 03/19/2021 12:00:00 AM ED T eCW1 ([facility]) NITROFURANTOIN, MACROCRYSTALS 25 MG / Ni trofurantoin, Monohydrate 75 MG Oral Capsule [Macrobid] 03/19/2021 12:00:00 AM EDT eC W1 ([facility]) Fluconazole 150 MG Oral Tablet [Diflucan] 03/19/2021 12:00:00 AM ED T eCW1 ([facility]) NITROFURANTOIN, MACROCRYSTALS 25 MG / Ni trofurantoin, Monohydrate 75 MG Oral Capsule [Macrobid] 03/19/2021 12:00:00 AM EDT eC W1 ([facility]) Fluconazole 150 MG Oral Tablet [Diflucan] 03/19/2021 12:00:00 AM ED T eCW1 ([facility]) NITROFURANTOIN, MACROCRYSTALS 25 MG / Ni trofurantoin, Monohydrate 75 MG Oral Capsule [Macrobid] 03/19/2021 12:00:00 AM EDT eC W1 ([facility]) Fluconazole 150 MG Oral Tablet [Diflucan] 03/19/2021 12:00:00 AM ED T eCW1 ([facility]) NITROFURANTOIN, MACROCRYSTALS 25 MG / Ni trofurantoin, Monohydrate 75 MG Oral Capsule [Macrobid] 03/19/2021 12:00:00 AM EDT eC W1 ([facility]) Fluconazole 150 MG Oral Tablet [Diflucan] 03/19/2021 12:00:00 AM ED T eCW1 ([facility]) NITROFURANTOIN, MACROCRYSTALS 25 MG / Ni trofurantoin, Monohydrate 75 MG Oral Capsule [Macrobid] 03/19/2021 12:00:00 AM EDT eC W1 ([facility]) Fluconazole 150 MG Oral Tablet [Diflucan] 03/19/2021 12:00:00 AM ED T eCW1 ([facility]) NITROFURANTOIN, MACROCRYSTALS 25 MG / Ni trofurantoin, Monohydrate 75 MG Oral Capsule [Macrobid] 03/19/2021 12:00:00 AM EDT eC W1 ([facility]) Fluconazole 150 MG Oral Tablet [Diflucan] 03/19/2021 12:00:00 AM ED T eCW1 ([facility]) NITROFURANTOIN, MACROCRYSTALS 25 MG / Ni trofurantoin, Monohydrate 75 MG Oral Capsule [Macrobid] 03/19/2021 12:00:00 AM EDT eC W1 ([facility]) NITROFURANTOIN, MACROCRYSTALS 25 MG / Ni trofurantoin, Monohydrate 75 MG Oral Capsule [Macrobid] 03/19/2021 12:00:00 AM EDT eC W1 ([facility]) Fluconazole 150 MG Oral Tablet [Diflucan] 03/19/2021 12:00:00 AM ED T eCW1 ([facility]) NITROFURANTOIN, MACROCRYSTALS 25 MG / Ni trofurantoin, Monohydrate 75 MG Oral Capsule [Macrobid] 03/19/2021 12:00:00 AM EDT eC W1 ([facility]) Fluconazole 150 MG Oral Tablet [Diflucan] 03/19/2021 12:00:00 AM ED T eCW1 ([facility]) NITROFURANTOIN, MACROCRYSTALS 25 MG / Ni trofurantoin, Monohydrate 75 MG Oral Capsule [Macrobid] 03/19/2021 12:00:00 AM EDT eC W1 ([facility]) Fluconazole 150 MG Oral Tablet [Diflucan] 03/19/2021 12:00:00 AM ED T eCW1 ([facility]) NITROFURANTOIN, MACROCRYSTALS 25 MG / Ni trofurantoin, Monohydrate 75 MG Oral Capsule [Macrobid] 03/19/2021 12:00:00 AM EDT eC W1 ([facility]) Fluconazole 150 MG Oral Tablet [Diflucan] 03/19/2021 12:00:00 AM ED T eCW1 ([facility]) NITROFURANTOIN, MACROCRYSTALS 25 MG / Ni trofurantoin, Monohydrate 75 MG Oral Capsule [Macrobid] 03/19/2021 12:00:00 AM EDT eC W1 ([facility]) Fluconazole 150 MG Oral Tablet [Diflucan] 03/19/2021 12:00:00 AM ED T eCW1 ([facility]) NITROFURANTOIN, MACROCRYSTALS 25 MG / Ni trofurantoin, Monohydrate 75 MG Oral Capsule [Macrobid] 03/19/2021 12:00:00 AM EDT eC W1 ([facility]) Fluconazole 150 MG Oral Tablet [Diflucan] 03/19/2021 12:00:00 AM ED T eCW1 ([facility]) NITROFURANTOIN, MACROCRYSTALS 25 MG / Ni trofurantoin, Monohydrate 75 MG Oral Capsule [Macrobid] 03/19/2021 12:00:00 AM EDT eC W1 ([facility]) Fluconazole 150 MG Oral Tablet [Diflucan] 03/19/2021 12:00:00 AM ED T eCW1 ([facility]) NITROFURANTOIN, MACROCRYSTALS 25 MG / Ni trofurantoin, Monohydrate 75 MG Oral Capsule [Macrobid] 03/19/2021 12:00:00 AM EDT eC W1 ([facility]) Fluconazole 150 MG Oral Tablet [Diflucan] 03/19/2021 12:00:00 AM ED T eCW1 ([facility]) Fluconazole 150 MG Oral Tablet [Diflucan] 03/19/2021 12:00:00 AM ED T eCW1 ([facility]) NITROFURANTOIN, MACROCRYSTALS 25 MG / Ni trofurantoin, Monohydrate 75 MG Oral Capsule [Macrobid] 03/19/2021 12:00:00 AM EDT eC W1 ([facility]) Dexamethasone 1 MG/ML / Tobramycin 3 MG/ML Ophthalmic Suspension [Tobradex] 10/20/2018 12:00:00 AM EDT [facility] (Christopher Garcia MD [facility])
[2021-04-09 18:04] LABS: BASO % 0.5 % (0.0-1.0); EOS # 0.3 10^3/uL (0.0-0.5); EOS % 4.6 % (0.0-3.0); HEMATOCRIT 38.8 % (36.0-47.0); HEMOGLOBIN 12.7 g/dl (12.0-15.5); LYMPH # 1.8 10^3/uL (1.5-5.0); MEAN CORPUSCULAR HEMOGLOBIN 31.1 pg (27.0-33.0); MEAN CORPUSCULAR HGB CONC 32.7 g/dl (32.0-36.5); MEAN CORPUSCULAR VOLUME 95.1 fl (80.0-96.0); MONO # 0.5 10^3/uL (0.0-0.8); MONO % 7.7 % (2.0-8.0); NEUTROPHILS # 3.5 10^3/uL (1.5-8.5); PLATELET COUNT, AUTOMATED 302 10^3/uL (150-450); RED BLOOD COUNT 4.08 10^6/uL (4.00-5.40); WHITE BLOOD COUNT 6.1 10^3/uL (4.0-10.0)
[2021-04-09] MEDS ORDERED: ISOVUE-370 76% 100ML VIAL As Ordered ONE (18:04)
[2021-04-09 18:17] VITALS: BP 130/102
[2021-04-09 18:27] LABS: ALT/SGPT 28 U/L (12-78); BILIRUBIN,DIRECT < 0.1 MG/DL (0.0-0.2); BILIRUBIN,TOTAL 0.3 MG/DL (0.2-1.0); LIPASE 106 U/L (73-393); TOTAL PROTEIN 8.3 GM/DL (6.4-8.2)
--- NOTE | 2021-04-09 18:56 | REPVR ---
PROCEDURE INFORMATION: Exam: CT Abdomen And Pelvis With Contrast Exam date and time: 04/09/2021 5:23 PM Age: 76 years old Clinical indication: Abdominal pain; Generalized TECHNIQUE: Imaging protocol: Computed tomography of the abdomen and pelvis with contrast. Radiation optimization: All CT scans at this facility use at least one of these dose optimization techniques: automated exposure control; mA and/or kV adjustment per patient size (includes targeted exams where dose is matched to clinical indication); or iterative reconstruction. Contrast material: ISOVUE 370; Contrast volume: 100 ml; Contrast route: INTRAVENOUS (IV); COMPARISON: PELVIS NON-OB COMPLETE US 12/08/2020 10:20 AM FINDINGS: Liver: There is a diffuse decrease in hepatic parenchymal density, consistent with steatosis. Gallbladder and bile ducts: Normal. No calcified stones. No ductal dilation. Pancreas: Normal. No ductal dilation. Spleen: Normal. No splenomegaly. Adrenal glands: Normal. No mass. Kidneys and ureters: Peripelvic cysts left kidney. No follow-up suggested. Stomach and bowel: Mild diverticulosis is present in the distal colon. No diverticulitis. Appendix: No evidence of appendicitis. Intraperitoneal space: Unremarkable. No free air. No significant fluid collection. Vasculature: The aortoiliac vessels demonstrate mild atherosclerotic calcification. Lymph nodes: Unremarkable. No enlarged lymph nodes. Urinary bladder: Unremarkable as visualized. Reproductive: Lobular enlargement of the right ovary measures 4.9 x 3.5 x 5 cm. Findings correspond to multi cystic enlargement of the right ovary demonstrated on prior ultrasound. Bones/joints: Mild central spinal stenosis L2-L3 and L3-L4 and moderate to severe central spinal stenosis L4-L5. Annular bulge L5-S1. Soft tissues: Unremarkable. IMPRESSION: 1. There is a diffuse decrease in hepatic parenchymal density, consistent with steatosis. 2. Lobular enlargement of the right ovary measures 4.9 x 3.5 x 5 cm. Findings correspond to multi cystic enlargement of the right ovary demonstrated on prior ultrasound. 3. Mild diverticulosis is present in the distal colon. No diverticulitis. COMMENTS: Consistent with the [employer]'s Incidental Findings Committee white paper (J Am Donald Radiol 2018): Any incidental renal lesion less than 1 cm or classified as too small to characterize, or any incidental cystic renal lesion characterized as simple-appearing, is likely benign. No follow-up imaging is recommended for these lesions per consensus recommendations based on imaging criteria. Electronically signed by: Melecio Ratliff On 04/09/2021 18:56:21 PM
--- NOTE | 2021-04-09 21:14 | REPVR ---
PROCEDURE INFORMATION: Exam: US Pelvis Limited, Bladder Exam date and time: 04/09/2021 9:05 PM Age: 76 years old Clinical indication: Pain; Other: Burning post urination; Additional info: Burning urination and in abdomen post urination TECHNIQUE: Imaging protocol: Real-time pelvic ultrasound with image documentation. COMPARISON: PELVIS NON-OB COMPLETE US 12/08/2020 10:20 AM FINDINGS: Urinary bladder: Bladder appears unremarkable. No evidence of postvoiding residual urine volume. Bilateral ureteral jets demonstrated. Bladder pre-void volume (cc): 50.6 cc Bladder post-void residual volume (cc): 0 cc IMPRESSION: Normal study. Electronically signed by: Melecio Ratliff On 04/09/2021 21:13:45 PM
== END 2021-04-09 22:00 | disposition home or self-care (01) ==
LOC: M ED 13:30
DX: R30.9 Painful micturition, unspecified (principal); R10.2 Pelvic and perineal pain; R30.0 Dysuria; K57.30 Diverticulosis of large intestine without perforation or abscess without bleeding; M48.061 Spinal stenosis, lumbar region without neurogenic claudication; I25.10 Atherosclerotic heart disease of native coronary artery without angina pectoris; I10 Essential (primary) hypertension; R00.2 Palpitations; Z98.51 Tubal ligation status; Z87.42 Personal history of other diseases of the female genital tract
CPT/HCPCS: 36415; 74177; 76857; 80047; 80076; 81001; 83690; 85025; 86304; 87210; 99284; Q9967

== ENCOUNTER → 2022-03-29 | Outpatient (CLI) | payer MEDICARE, BC | LOC: M WHC 10:45 | PROVIDERS: ATTEND Internal Medicine | DX: Z12.31 Encounter for screening mammogram for malignant neoplasm of breast (principal) ==

== ENCOUNTER → 2023-04-09 | Outpatient (CLI) | payer MEDICARE, BC | LOC: M WHC 08:27 | PROVIDERS: ATTEND Specialist | DX: Z01.419 Encounter for gynecological examination (general) (routine) without abnormal findings (principal); Z12.31 Encounter for screening mammogram for malignant neoplasm of breast ==

== ENCOUNTER → 2024-04-14 | Outpatient (CLI) | payer MEDICARE, BC | LOC: M WHC 08:37 | PROVIDERS: ATTEND Specialist | DX: Z13.820 Encounter for screening for osteoporosis (principal); Z12.31 Encounter for screening mammogram for malignant neoplasm of breast; M85.89 Other specified disorders of bone density and structure, multiple sites; R92.323 Mammographic fibroglandular density, bilateral breasts ==

== ENCOUNTER → 2024-04-14 | Outpatient (REF) | payer MEDICARE, BC ==
[2024-04-19 16:39] LABS: HPV APTIMA Not Detected (Not Detected)
== END ==
LOC: M SFHCWAGY 13:23
PROVIDERS: ATTEND Specialist
DX: Z12.4 Encounter for screening for malignant neoplasm of cervix (principal)
CPT/HCPCS: 87624; G0123

== ENCOUNTER → 2024-12-28 | Outpatient (CLI) | payer MEDICARE, BC | LOC: M EKG 10:55 | PROVIDERS: ATTEND Registered Nurse | DX: R00.2 Palpitations (principal) ==

== ENCOUNTER → 2025-03-11 | Outpatient (CLI) | payer MEDICARE, BC | LOC: M PLAIMG 09:19 | PROVIDERS: ATTEND Registered Nurse | DX: I34.0 Nonrheumatic mitral (valve) insufficiency (principal); I35.1 Nonrheumatic aortic (valve) insufficiency ==

== ENCOUNTER → 2025-04-15 | Outpatient (REF) | payer MEDICARE, BC | LOC: M SFHCWAGY 13:02 | PROVIDERS: ATTEND Specialist | DX: R30.0 Dysuria (principal) ==

== ENCOUNTER → 2025-04-15 | Outpatient (CLI) | payer MEDICARE, BC | LOC: M WHC 09:09 | PROVIDERS: ATTEND Specialist | DX: Z12.31 Encounter for screening mammogram for malignant neoplasm of breast (principal); R92.323 Mammographic fibroglandular density, bilateral breasts ==

== ENCOUNTER → 2025-04-15 | Outpatient (CLI) | payer MEDICARE, BC | LOC: M WHC 10:50 | PROVIDERS: ATTEND Specialist | DX: N83.291 Other ovarian cyst, right side (principal); R10.20 Pelvic and perineal pain unspecified side; N83.292 Other ovarian cyst, left side ==